=== PATIENT | male | born 1960 | race Caucasian/White ===

== ENCOUNTER 2019-12-12 06:35 | Day surgery (SDC) | payer OTHER ==
[2019-12-10 12:12] VITALS: BMI 27.3
[~2019-12-12 06:35] MED LIST: ALPRAZolam 0.25 MG TAB PO PRN; ALPRAZolam 0.5 MG TAB PO PRN; ASPIRIN 325 MG TAB PO STA; ATORVASTATIN 80 MG TAB PO STA; FAMOTIDINE 20 MG/2 ML VIAL IV PRN; HYDROmorphone 0.5 MG/0.5 ML SYRINGE IVP PRN; LACTATED RINGERS 1,000 ML IV SCH; NITROGLYCERIN SL TABS 0.4 MG TAB SUBLINGUAL PRN; SODIUM CHLORIDE 0.9% 1,000 ML in EMPTY BAG 1 BAG IV ONE
[2019-12-12 07:11] VITALS: TEMP 98.3
[2019-12-12 07:16] LABS: Basophils # (A) 0.1 k/uL (0-0.2); Basophils % (A) 1 %; Eosinophils # (A) 0.7 k/uL (0-0.7); Eosinophils % (A) 6 %; HCT 42.8 % (39.0-53.0); HGB 14.8 gm/dL (13.0-17.5); Lymphocytes # (A) 3.7 k/uL (1.0-4.8); Lymphocytes % (A) 30 %; MCH 30.8 pg (25.0-35.0); MCHC 34.5 g/dL (31.0-37.0); MCV 89.4 fL (80.0-100.0); Mean Platelet Volume 7.9; Monocytes # (A) 0.8 k/uL (0-1.0); Monocytes % (A) 7 %; Neutrophils # (A) 6.5 k/uL (1.3-7.7); Neutrophils % (A) 54 %; Platelet Count 219 k/uL (150-450); RBC 4.79 m/uL (4.30-5.90); WBC 12.1 k/uL (3.8-10.6)
[2019-12-12] MEDS ORDERED: VERAPAMIL 2.5 MG/ML 2 ML AMP ONE (07:16)
[2019-12-12] MEDS ORDERED: LIDOCAINE 1% INJ 10MG/ML (20 ML MDV) ONE (07:16)
[2019-12-12 07:25] LABS: African American GFR (CKD) >90 (>60 ml/min/1.73 sqM); Anion Gap 8 mmol/L; Blood Urea Nitrogen 17 mg/dL (9-20); Calcium 9.3 mg/dL (8.4-10.2); Carbon Dioxide 24 mmol/L (22-30); Chloride 106 mmol/L (98-107); Glucose 96 mg/dL (74-99); Non-African American GFR(CKD) >90 (>60 ml/min/1.73 sqM); Potassium 4.6 mmol/L (3.5-5.1); Sodium 138 mmol/L (137-145)
[2019-12-12] MEDS: MIDAZOLAM 2 MG/2 ML VIAL IVP ONE ×2 (07:35→07:51)
[2019-12-12] MEDS ORDERED: HEPARIN SODIUM 1,000 UN/ML (10ML VL) ONE (07:46)
[2019-12-12] MEDS ORDERED: LIDOCAINE 1% INJ 10MG/ML (20 ML MDV) SQ ONE (07:46)
[2019-12-12] MEDS: VERAPAMIL SYRINGE (5 MG/10 ML) INTRAARTER ONE ×2 (07:49→08:01)
[2019-12-12] MEDS ORDERED: HEPARIN SODIUM 1,000 UN/ML (10ML VL) IV ONE (07:51)
[2019-12-12] MEDS ORDERED: IOPAMIDOL-370 100ML BTL INJ ONE (08:01)
[2019-12-12] MEDS ORDERED: SODIUM CHLORIDE 0.9% 1,000 ML IV SCH (08:30)
[2019-12-12 09:20] VITALS: RESP 16
[2019-12-12 10:12] VITALS: BP 104/68; PULSE 68
--- NOTE | 2019-12-12 12:22 | CC ---
CARDIAC CATHETERIZATION REPORT DATE OF SERVICE: 12/12/2019. PROCEDURE PERFORMED: Left heart catheterization and coronary angiography. PERFORMED BY: Dr. Bárbara Koch. SEDATION: Moderate conscious sedation time was 20 minutes. Patient was administered Versed. Oxygen desaturation and hemodynamics and EKG were monitored closely. CLINICAL INFORMATION: Mr. Jone Garcia is a 59-year-old gentleman with a known history of peripheral arterial disease, smoking, hypertension and hypercholesterolemia. He had a cardiac cath about more than 6 months ago at [facility], was advised aortocoronary bypass surgery, but he refused and he saw Dr. Bran recently and has been having symptoms of angina, but is reluctant to have surgery. He wishes to have a repeat cardiac catheterization prior to any surgical intervention. He has been having symptoms of angina. There was a left main stenosis at that time. PROCEDURE NOTE: Under local anesthesia and strict aseptic precautions, a 6-Venezuelan introducer was placed in the right radial artery. Using 3.5 left and a 4.0 right Jose Eduardo catheters, I performed coronary angiography. The same right catheter was used to check LV pressures. LV gram was not performed. The sheath was taken out and TR band applied as per protocol and patient was sent to the room in stable condition. Saturation the fingers of the right hand was good. CARDIAC CATHETERIZATION FINDINGS: The left ventricular end-diastolic pressure was about 8-10 mmHg without any gradient across aortic valve. CORONARY ANGIOGRAPHY FINDINGS: RIGHT CORONARY ARTERY: Dominant vessel has moderate calcification throughout. The proximal half is heavily calcified, has about a 40% to 45% lesion in the proximal portion. The caliber of the vessel improves and distally gives off a PDA branch and a very tiny PLV branch. Dominant RCA, 45% stenosis in the junction of proximal and middle one third. LEFT MAIN CORONARY: This vessel distally has about 80% stenosis and bifurcates into LAD and circumflex. No ostial stenosis of left main. LEFT ANTERIOR DESCENDING CORONARY: This vessel has 80% ostial lesion, gives off 2 diagonal branches, 1 very proximally and 1 second diagonal branch. The proximal diagonal has mild disease. Second diagonal has significant disease with independent lesion of 80% or so and it is a diffusely diseased vessel. LAD is a fair caliber, runs all the way to the apex, supplies a sizable amount of myocardium. LAD is a graftable vessel. There is moderate calcification in the 1st half of the LAD which has about a 40% narrowing. LEFT POSTERIOR CIRCUMFLEX CORONARY ARTERY: Nondominant vessel, small in caliber and distribution has mild irregularities. No significant disease. Distally the caliber is small and probably will be difficult to graft this vessel. FINAL IMPRESSION: This patient has 80% left main and 80% ostial LAD disease with a 40% mid LAD disease and a 70% diagonal disease. RCA has a 45% stenosis. Circumflex is small and nondominant. Filling pressures are normal. There was no gradient across aortic valve. RECOMMENDATIONS: I am recommending aortocoronary bypass surgery with a FULLER to LAD and possibly additional graft to the diagonal and circumflex if feasible. The RCA is moderate but not significantly diseased. Results were discussed with the patient and and also with Dr. Bran. Patient will follow up with Dr. Bran in one week. MMODL / IJN: [id number] /
--- NOTE | 2019-12-12 15:17 | P.GSCN ---
History of Present Illness Consult date: 12/12/19 Reason for Consult: Symptomatic multivessel coronary artery disease, evaluation for myocardial revascularization surgery. Requesting physician: Brian Bran History of present illness: This is a 59-year-old gentleman who does not follow with the primary care physician on an outpatient basis. He has a past medical history significant for hypertension, dyslipidemia, severe peripheral vascular disease, obesity and chronic ongoing tobacco dependence. Patient has a known history of coronary artery disease and underwent a heart catheterization in February 2019. The heart catheterization was apparently completed at the at [facility] which showed significant coronary artery disease with left main disease and was advised to undergo myocardial revascularization surgery at that time. According to the patient he was reluctant to undergo surgery and refused surgery at that time and wanted to get a second opinion. Recently, he has been having symptoms of chest pain with activity and was associated with some shortness of breath. He denies any complaints of nausea, vomiting, palpitations, near syncope or syncope. The patient has been following with Dr. Bran from [facility] and was requesting to undergo a repeat cardiac catheterization. Subsequently, due to the patient's symptoms of chest pain and history of coronary artery disease a left heart cardiac catheterization and coronary and angiography was completed today by Dr. RAQUEL Koch which demonstrated an 80% stenosis to his distal left main coronary artery, and 80% stenosis to his ostial left anterior descending coronary artery and 80% stenosis to his second diagonal coronary artery, a 40% stenosis to his mid left anterior descending coronary artery and a 45% stenosis to his right coronary artery. Due to the findings on the cardiac catheterization films, the patient's recent symptoms and history of coronary artery disease a consult was placed to Dr. Trenton Miguel from cardiothoracic surgery for further evaluation and treatment recommendations for myocardial revascularization surgery. Review of Systems A 14 point review of systems was completed and was negative except as mentioned in the HPI. Past Medical History Past Medical History: Coronary Artery Disease (CAD), COPD, Hyperlipidemia, Hypertension, Vascular Disorder Additional Past Medical History / Comment(s): hx migrainres, gets SOB, soreness both lower legs History of Any Multi-Drug Resistant Organisms: None Reported Past Surgical History: Heart Catheterization, Orthopedic Surgery Additional Past Surgical History / Comment(s): surgery for fx rt shoulder, heart cath about 9 months ago at [facility] Past Anesthesia/Blood Transfusion Reactions: No Reported Reaction Past Psychological History: No Psychological Hx Reported Smoking Status: Current some day smoker Past Alcohol Use History: Occasional Past Drug Use History: None Reported - Past Family History Mother History Unknown: Yes Additional Family Medical History / Comment(s): mother had blood clot - not sure where Medications and Allergies Home Medications Medication Instructions Recorded Confirmed Type Aspirin [Adult Low Dose Aspirin EC] 81 mg PO DAILY 12/10/19 12/12/19 History Atorvastatin [Lipitor] 40 mg PO DAILY 12/10/19 12/12/19 History Clopidogrel [Plavix] 75 mg PO DAILY 12/10/19 12/12/19 History Lisinopril [Zestril] 2.5 mg PO BID 12/10/19 12/12/19 History Metoprolol Tartrate 25 mg PO BID 12/10/19 12/12/19 History Allergies Allergy/AdvReac Type Severity Reaction Status Date / Time No Known Allergies Allergy Verified 12/10/19 12:01 Surgical - Exam Vital Signs Temp Pulse Resp BP Pulse Ox 98.3 F 55 L 18 133/79 96 12/12/19 06:55 12/12/19 06:55 12/12/19 06:55 12/12/19 06:55 12/12/19 06:55 This is a pleasant 59-year-old gentleman who was seen at his bedside in the extended stay unit. He is awake, alert and oriented 3. He is in no acute apparent distress. Oxygen saturations are 97% on room air. - General well developed, well nourished, no distress, no pain, obese - Eyes PERRL, normal ocular movement - ENT normal pinna, normal nares, normal mucosa, no hearing loss, no congestion - Neck no masses, no bruits, no venous distension - Respiratory Lung sounds are essentially clear throughout, mail order sorter bilateral bases. No wheezes, rhonchi or crackles. Respirations are symmetrical and nonlabored. - Cardiovascular Regular rhythm and rate. S1 and S2 present, negative for S3, gallop or murmur. No edema present. - Abdomen Abdomen is soft, nontender and nondistended. Active bowel sounds present L4 abdominal quadrants. No guarding or rigidity. No organomegaly appreciated. - Genitourinary Deferred - Rectum Deferred - Integumentary no rash, no growths, no abnormal pigmentation - Neurologic Cranial nerves II through XII intact. normal coordination, normal sensation - Musculoskeletal normal gait, normal posture - Psychiatric oriented to time, oriented to person, oriented to place, speech is normal, memory intact Results - Labs 12/12/19 07:00 12/12/19 07:00 Abnormal Lab Results - Last 24 Hours (Table) 12/12/19 Range/Units 07:00 WBC 12.1 H (3.8-10.6) k/uL Diabetes panel 12/12/19 Range/Units 07:00 Sodium 138 (137-145) mmol/L Potassium 4.6 (3.5-5.1) mmol/L Chloride 106 (98-107) mmol/L Carbon Dioxide 24 (22-30) mmol/L BUN 17 (9-20) mg/dL Creatinine 0.83 (0.66-1.25) mg/dL Glucose 96 (74-99) mg/dL Calcium 9.3 (8.4-10.2) mg/dL Calcium panel 12/12/19 Range/Units 07:00 Calcium 9.3 (8.4-10.2) mg/dL Pituitary panel 12/12/19 Range/Units 07:00 Sodium 138 (137-145) mmol/L Potassium 4.6 (3.5-5.1) mmol/L Chloride 106 (98-107) mmol/L Carbon Dioxide 24 (22-30) mmol/L BUN 17 (9-20) mg/dL Creatinine 0.83 (0.66-1.25) mg/dL Glucose 96 (74-99) mg/dL Calcium 9.3 (8.4-10.2) mg/dL Adrenal panel 12/12/19 Range/Units 07:00 Sodium 138 (137-145) mmol/L Potassium 4.6 (3.5-5.1) mmol/L Chloride 106 (98-107) mmol/L Carbon Dioxide 24 (22-30) mmol/L BUN 17 (9-20) mg/dL Creatinine 0.83 (0.66-1.25) mg/dL Glucose 96 (74-99) mg/dL Calcium 9.3 (8.4-10.2) mg/dL - Imaging Additional studies: Heart catheterization films were reviewed by Dr. Trenton Miguel. Assessment and Plan Assessment: 1. Coronary artery disease with left main disease 2. Unstable angina 3. Hypertension 4. Dyslipidemia 5. Peripheral vascular disease 6. Chronic ongoing tobacco dependence Plan: The patient was seen and examined at his bedside in the extended stay unit by Dr. Trenton Migeul. The chart and diagnostics were reviewed. The results of the cardiac catheterization films were reviewed by Dr. Miguel in conjunction with Dr. Bran from [facility]. The findings of the cardiac catheterization films were also discussed with the patient and his family member present at the bedside by Dr. Miguel. Treatment options discussed with the patient including myocardial revascularization surgery including risks and benefits of surgery. The patient is agreeable to undergo myocardial revascularization surgery and would prefer to undergo preoperative testing on an outpatient basis. Once the patient has his preoperative testing completed an STS risk score will be calculated and discussed with the patient and if the patient is agreeable will be scheduled for an elective myocardial revascularization surgery. The patient's Plavix will have to be held for 5-7 days prior to myocardial revascularization surgery. Continue to optimize with medical management, aspirin, statin and beta magen. Medical management per Dr. Bran's rec ommendations. Thank you Dr. Bran for this consult and we will look for to working with you in the care of this patient. Time with Patient: Greater than 30
--- NOTE | 2019-12-12 15:47 | ECHOF ---
Referral Reason:LV function MEASUREMENTS -------- HEIGHT: 175.3 cm WEIGHT: 83.9 kg BP: 120/75 RVIDd: 3.7 cm (< 3.3) IVSd: 1.3 cm (0.6 - 1.1) LVIDd: 4.2 cm (3.9 - 5.3) LVPWd: 1.4 cm (0.6 - 1.1) IVSs: 1.5 cm LVIDs: 2.9 cm LVPWs: 1.7 cm LAESV Index (A-L): 26.97 ml/m Ao Diam: 3.0 cm (2.0 - 3.7) AV Cusp: 1.6 cm (1.5 - 2.6) MV EXCURSION: 15.279 mm (> 18.000) MV EF SLOPE: 76 mm/s (70 - 150) EPSS: 0.9 cm MV E Tyler: 0.63 m/s MV DecT: 277 ms MV A Tyler: 0.79 m/s MV E/A Ratio: 0.79 FINDINGS -------- This was a technically adequate study. The left ventricular size is normal. There is mild concentric left ventricular hypertrophy. Overa ll left ventricular systolic function is normal with, an EF between 55 - 60 %. The diastolic fillin g pattern is normal for the age of the patient 10.. The right ventricle is mildly enlarged. Normal LA size by volume 22+/-6 ml/m2. The right atrial size is normal. Interatrial and interventricular septum intact. There is no evidence of aortic regurgitation. There is no evidence of aortic stenosis. There is trace mitral regurgitation. Trace tricuspid regurgitation present. Unable to estimate RVSP due to inadequate TR jet spectral do ppler profile. There is no pulmonic regurgitation present. The aortic root size is normal. IVC Not well visulized. There is no pericardial effusion. CONCLUSIONS -------- 1. This was a technically adequate study. 2. The left ventricular size is normal. 3. There is mild concentric left ventricular hypertrophy. 4. Overall left ventricular systolic function is normal with, an EF between 55 - 60 %. 5. The diastolic filling pattern is normal for the age of the patient 10.97 6. The right ventricle is mildly enlarged. 7. Normal LA size by volume 22+/-6 ml/m2. 8. The right atrial size is normal. 9. Interatrial and interventricular septum intact. 10. There is no evidence of aortic regurgitation. 11. There is no evidence of aortic stenosis. 12. There is trace mitral regurgitation. 13. Trace tricuspid regurgitation present. 14. Unable to estimate RVSP due to inadequate TR jet spectral doppler profile. 15. There is no pulmonic regurgitation present. 16. The aortic root size is normal. 17. IVC Not well visulized. 18. There is no pericardial effusion. MANAGER [place]: Kathe Berkowitz RDCS
== END 2019-12-12 13:36 | disposition home or self-care (01) ==
LOC: CATHCVL 06:35
PROVIDERS: ATTEND Internal Medicine Interventional Cardiology
DX: I25.110 Atherosclerotic heart disease of native coronary artery with unstable angina pectoris (principal); I10 Essential (primary) hypertension; I73.9 Peripheral vascular disease, unspecified; E66.9 Obesity, unspecified; J44.9 Chronic obstructive pulmonary disease, unspecified; E78.2 Mixed hyperlipidemia; G43.909 Migraine, unspecified, not intractable, without status migrainosus; F17.210 Nicotine dependence, cigarettes, uncomplicated; Z98.890 Other specified postprocedural states; Z82.49 Family history of ischemic heart disease and other diseases of the circulatory system; Z79.02 Long term (current) use of antithrombotics/antiplatelets; Z79.82 Long term (current) use of aspirin; Z79.899 Other long term (current) drug therapy; Z68.27 Body mass index [BMI] 27.0-27.9, adult
CPT/HCPCS: 93306; 93458; 80048; 85025; C1769; C1894; J2250; J2001; J1644; Q9967

== ENCOUNTER 2019-12-24 08:00 | Inpatient (IN) | payer OTHER ==
[2019-12-27] MEDS ORDERED: PROTAMINE SULFATE 250 MG in EMPTY BAG 1 BAG IV ONE (05:00)
[2019-12-27] MEDS ORDERED: ceFAZolin 2,000 MG in SODIUM CHLORIDE 0.9% 30 ML IVPB ONE ×4 (05:00)
[2019-12-27] MEDS ORDERED: NITROGLYCERIN-D5W PMX 25 MG/250 ML BTL IV ONE (05:00)
[2019-12-27] MEDS ORDERED: DEXTROSE 5% IN WATER 1,000 ML with POTASSIUM CHLORIDE 110 MEQ, MAGNESIUM SULFATE 16 MEQ... IV ONE ×5 (05:00)
[2019-12-27] MEDS ORDERED: CHLORHEXIDINE GLUCONATE 15 ML CUP MUCOUS MEM ONE (05:00)
[2019-12-27] MEDS ORDERED: MAGNESIUM SULFATE MG 500 MG/ML IV ONE (05:00)
[2019-12-27] MEDS ORDERED: PAPAVERINE 360 MG in SODIUM CHLORIDE 0.9% 90 ML IV ONE (05:00)
[2019-12-27] MEDS ORDERED: HEPARIN SODIUM 1,000 UN/ML (10ML VL) IV ONE (05:00)
[2019-12-27] MEDS ORDERED: VANCOMYCIN 1,000 MG VIAL MISCELLANE ONE (05:00)
[2019-12-27] MEDS ORDERED: METOPROLOL TARTRATE 12.5 MG TAB PO ONE (05:00)
[2019-12-27] MEDS ORDERED: ATORVASTATIN 10 MG TAB PO ONE (05:00)
[2019-12-27] MEDS ORDERED: CALCIUM CHLORIDE 100 MG/ML 10 ML SYRINGE IV ONE (05:00)
[2019-12-27] MEDS ORDERED: INSULIN REGULAR 100 UNIT in SODIUM CHLORIDE 0.9% 100 ML IV ONE (05:00)
[2019-12-27] MEDS ORDERED: propofoL 1,000 MG/100 ML VIAL IV ONE (05:00)
[2019-12-27] MEDS ORDERED: NOREPINEPHRINE 4 MG in SODIUM CHLORIDE 0.9% 250 ML IV ONE (05:00)
[2019-12-27] MEDS ORDERED: DEXTROSE 5% IN WATER 1,000 ML with POTASSIUM CHLORIDE 25 MEQ, SODIUM CHLORIDE 2.5MEQ/ML... IRRIGATION ONE ×6 (05:00)
[2019-12-27] MEDS ORDERED: PHENYLEPHRINE 10 MG/ML VIAL IV ONE (05:00)
[2019-12-27] MEDS ORDERED: PHENYLEPHRINE 40 MG in SODIUM CHLORIDE 0.9% 250 ML IV ONE (05:00)
[2019-12-27] MEDS ORDERED: SODIUM CHLORIDE 0.9% 1,000 ML IV ONE (05:00)
[2019-12-27] MEDS ORDERED: LACTATED RINGERS 1,000 ML IV ONE ×2 (05:00→07:19)
[2019-12-27] MEDS ORDERED: TRANEXAMIC ACID 2,000 MG in SODIUM CHLORIDE 0.9% 80 ML IV ONE (05:00)
[2019-12-27] MEDS ORDERED: PROTAMINE SULFATE 10 MG/ML 25 ML VIAL IV ONE ×2 (05:00→08:43)
[2019-12-27] MEDS ORDERED: MANNITOL 25% 12.5 GM/50 ML VIAL IV ONE (05:00)
[2019-12-27] MEDS ORDERED: ASPIRIN 325 MG TAB PO ONE (05:00)
[2019-12-27] MEDS ORDERED: SODIUM BICARB 8.4% 50 ML SYR (1 MEQ/ML) IV ONE (05:00)
[2019-12-27] MEDS ORDERED: NITROGLYCERIN-D5W PMX 50 MG in DEXTROSE/WATER 1 250ML.BAG IV ONE (05:00)
[2019-12-27] MEDS ORDERED: ALBUMIN HUMAN 25% 50 ML IV ONE (05:00)
[2019-12-27] MEDS ORDERED: CLEVIDIPINE BUTYRATE 25 MG in EMPTY BAG 1 BAG IV ONE (05:00)
[2019-12-27] MEDS ORDERED: INSULIN REGULAR 100 UNIT/ML VIAL ONE (08:43)
[2019-12-27] MEDS ORDERED: VECURONIUM 10 MG VIAL IV ONE (08:43)
[2019-12-27] MEDS ORDERED: ELECTROLYTE-R (PH 7.4) 1,000 ML IV.SOLN IV ONE (08:43)
[2019-12-27] MEDS ORDERED: PROPOFOL 10 MG/ML 20 ML VIAL IV ONE (08:43)
[2019-12-27] MEDS ORDERED: ALBUMIN HUMAN 5% (25gm) 500 ML VIAL IVPB ONE (08:43)
[2019-12-27] MEDS ORDERED: NITROGLYCERIN-D5W PMX 50 MG/250 ML BOTTLE IV ONE (08:43)
[2019-12-27] MEDS ORDERED: MAGNESIUM SULFATE 4 MEQ/ML 10ML VIAL ONE (08:43)
[2019-12-27] MEDS ORDERED: LIDOCAINE 2% SYG (PF) 100 MG/5 ML ONE (08:43)
[2019-12-27] MEDS ORDERED: SODIUM CHLORIDE 0.9% IRRIG 1,000 ML BTL IRRIGATION ONE (08:43)
[2019-12-27] MEDS ORDERED: HEPARIN SODIUM,PORCINE 10,000 UNIT/ML 1 ML VIAL ONE (08:43)
[2019-12-27] MEDS ORDERED: SODIUM CHLORIDE 0.9% 250 ML BAG ONE (08:43)
[2019-12-27] MEDS ORDERED: TRANEXAMIC ACID 1,000 MG/10 ML VIAL ONE (08:43)
[2019-12-27] MEDS ORDERED: ATROPINE SULFATE 0.1 MG/ML 10ML SYRINGE ONE (08:43)
[2019-12-27] MEDS ORDERED: MIDAZOLAM 2 MG/2 ML VIAL ONE (08:43)
[2019-12-27] MEDS ORDERED: fentaNYL (PF) 50 MCG/ML 50 ML VIAL ONE (08:43)
--- NOTE | 2019-12-27 09:20 | P.ANPRN ---
Procedure Note - Anesthesia - Invasive Line Right Arterial Line Time Out Performed: Yes Date of Procedure: 12/27/19 Time of Procedure: 08:15 Location of Patient: PreOp Preparation: Sterile Prep, Sterile Dressing Arterial Line Location: Radial Ultrasound Used: No Needle Guage: 20 g Narrative: Right radial artery catheter placed by SRNA. Sterile prep and drape. 1% lidocaine 2 ml local. 20 G needle to pulsatile flow. Seldinger technique over wire. Sutured in place. No complications Right Central Line Time Out Performed: Yes Date of Procedure: 12/27/19 Time of Procedure: 08:30 Location of Patient: PreOp Preparation: Sterile Prep, Sterile Dressing Ultrasound Used: Yes Purpose - Visualization and Identification of Vasculature: Yes Needle Guage: 18 G Image Stored and Saved: Yes Narrative: Central line placement per sterile protocol utilized. u/s used to guide needle
[2019-12-27 10:06] LABS: ABG Base Excess 0.3 mmol/L; ABG Glucose Whole Blood 99 mg/dL (75-99); ABG HCO3 27 mmol/L (21-25); ABG Hematocrit 40 % (34.0-46.0); ABG Ionized Calcium 4.8 mg/dL (4.5-5.3); ABG Lactic Acid Whole Blood 1.2 mmol/L (0.5-1.6); ABG Oxygen Saturation 99.9 % (94-97); ABG PCO2 52 mmHg (35-45); ABG PH 7.33 (7.35-7.45); ABG Potassium Whole Blood 4.1 mmol/L (3.4-4.5); ABG Sodium Whole Blood 140 mmol/L (135-146); ABG TCO2 29 mmol/L (19-24)
--- NOTE | 2019-12-27 10:33 | P.ANPRN ---
Procedure Note - Anesthesia - Invasive Line Right Kent Chung Time Out Performed: Yes Date of Procedure: 12/27/19 Time of Procedure: 08:35 Location of Patient: PreOp Preparation: Sterile Prep, Sterile Dressing Ultrasound Used: No Purpose - Visualization and Identification of Vasculature: No Narrative: After testing the balloon and flushing all ports, Kent advanced to 20 cm. Balloon inflated and advanced until RV and then PA waveform seen. Balloon deflated and PA secured at 43 cm.
--- NOTE | 2019-12-27 10:35 | P.ANPRN ---
Procedure Note - Anesthesia - KERI Intraop Pre Bypass KERI Intraop - Anesthesia Indication: CAD, mitral and tricuspid regurgitation Date of Procedure: 12/27/19 Pre-operative Diagnosis: CAD Post-operative Diagnosis: same Surgeon: Trenton Miguel Left Ventricle: EF 50% Ejection Fraction: Normal Regional Wall Motion Abnormalities: None Left Ventricle Hypertrophy: No R. Ventricle Function: Normal Anatomy: Trileaflet Aortic Stenosis: None Aortic Regurgitation: None Other Findings: large, nonmobile calcification on NCC Mitral Stenosis: None Mitral Regurgitation: Trace Tricuspid Stenosis: None Tricuspid Regurgitation: Mild Pulmonic Stenosis: None Pulmonic Regurgitation: None R. Atrial Dilation: No R. Atrial PFO: No L. Atrial Dilation: No Aortic Dissection: No Aortic Calcification: Moderate Plural Effusion: None
[2019-12-27] MEDS: ceFAZolin 1,000 MG in SODIUM CHLORIDE 0.9% IRRIGATIO 1,000 ML IRRIGATION ONE ×2 (11:21→15:07)
[2019-12-27] MEDS: HEPARIN SODIUM,PORCINE 5,000 UNIT in SODIUM CHLORIDE 0.9% 500 ML 500 ML IV ONE ×2 (11:21→11:52)
[2019-12-27 11:23] LABS: ABG Base Excess -1.1 mmol/L; ABG Glucose Whole Blood 135 mg/dL (75-99); ABG HCO3 27 mmol/L (21-25); ABG Hematocrit 37 % (34.0-46.0); ABG Ionized Calcium 4.8 mg/dL (4.5-5.3); ABG Lactic Acid Whole Blood 1.3 mmol/L (0.5-1.6); ABG Oxygen Saturation 96.4 % (94-97); ABG PCO2 63 mmHg (35-45); ABG PH 7.25 (7.35-7.45); ABG PO2 96 mmHg (83-108); ABG Sodium Whole Blood 139 mmol/L (135-146); ABG TCO2 29 mmol/L (19-24)
[2019-12-27 12:04] LABS: ABG Base Excess -2.6 mmol/L; ABG Glucose Whole Blood 133 mg/dL (75-99); ABG HCO3 24 mmol/L (21-25); ABG Hematocrit 31 % (34.0-46.0); ABG Ionized Calcium 4.1 mg/dL (4.5-5.3); ABG Oxygen Saturation 99.9 % (94-97); ABG PCO2 50 mmHg (35-45); ABG PH 7.29 (7.35-7.45); ABG PO2 409 mmHg (83-108); ABG Potassium Whole Blood 4.4 mmol/L (3.4-4.5); ABG Sodium Whole Blood 135 mmol/L (135-146); ABG TCO2 26 mmol/L (19-24)
[2019-12-27 12:42] LABS: ABG Base Excess -1.5 mmol/L; ABG Glucose Whole Blood 212 mg/dL (75-99); ABG HCO3 23 mmol/L (21-25); ABG Hematocrit 28 % (34.0-46.0); ABG Ionized Calcium 4.2 mg/dL (4.5-5.3); ABG PCO2 39 mmHg (35-45); ABG PH 7.38 (7.35-7.45); ABG PO2 333 mmHg (83-108); ABG Potassium Whole Blood 5.6 mmol/L (3.4-4.5); ABG Sodium Whole Blood 133 mmol/L (135-146); ABG TCO2 25 mmol/L (19-24)
[2019-12-27 13:05] LABS: ABG Base Excess -1.6 mmol/L; ABG Glucose Whole Blood 203 mg/dL (75-99); ABG HCO3 23 mmol/L (21-25); ABG Hematocrit 28 % (34.0-46.0); ABG Ionized Calcium 4.3 mg/dL (4.5-5.3); ABG PCO2 40 mmHg (35-45); ABG PH 7.38 (7.35-7.45); ABG PO2 357 mmHg (83-108); ABG Potassium Whole Blood 5.6 mmol/L (3.4-4.5); ABG Sodium Whole Blood 134 mmol/L (135-146); ABG TCO2 25 mmol/L (19-24)
[2019-12-27 13:37] LABS: ABG Base Excess -2.2 mmol/L; ABG Glucose Whole Blood 173 mg/dL (75-99); ABG HCO3 23 mmol/L (21-25); ABG Hematocrit 27 % (34.0-46.0); ABG Ionized Calcium 4.4 mg/dL (4.5-5.3); ABG PCO2 41 mmHg (35-45); ABG PH 7.36 (7.35-7.45); ABG PO2 365 mmHg (83-108); ABG Potassium Whole Blood 4.9 mmol/L (3.4-4.5); ABG Sodium Whole Blood 135 mmol/L (135-146); ABG TCO2 24 mmol/L (19-24)
[2019-12-27 14:27] LABS: ABG PO2 >420 mmHg (83-108)
[2019-12-27 14:28] LABS: ABG Glucose Whole Blood 129 mg/dL (75-99); ABG HCO3 26 mmol/L (21-25); ABG Hematocrit 33 % (34.0-46.0); ABG Ionized Calcium 4.6 mg/dL (4.5-5.3); ABG Lactic Acid Whole Blood 1.8 mmol/L (0.5-1.6); ABG Oxygen Saturation 99.7 % (94-97); ABG PCO2 64 mmHg (35-45); ABG PH 7.21 (7.35-7.45); ABG Potassium Whole Blood 4.3 mmol/L (3.4-4.5); ABG Sodium Whole Blood 138 mmol/L (135-146); ABG TCO2 28 mmol/L (19-24)
[2019-12-27 14:29] LABS: ABG Lactic Acid Whole Blood 2.4 mmol/L (0.5-1.6)
[2019-12-27 14:30] LABS: ABG Lactic Acid Whole Blood 2.7 mmol/L (0.5-1.6)
[2019-12-27 14:33] LABS: ABG PO2 >420 mmHg (83-108)
[2019-12-27 14:50] LABS: ABG Base Excess -2.2 mmol/L; ABG Glucose Whole Blood 105 mg/dL (75-99); ABG HCO3 26 mmol/L (21-25); ABG Hematocrit 34 % (34.0-46.0); ABG Ionized Calcium 4.9 mg/dL (4.5-5.3); ABG Lactic Acid Whole Blood 1.4 mmol/L (0.5-1.6); ABG Oxygen Saturation 99.7 % (94-97); ABG PCO2 59 mmHg (35-45); ABG PH 7.25 (7.35-7.45); ABG Potassium Whole Blood 4.3 mmol/L (3.4-4.5); ABG Sodium Whole Blood 138 mmol/L (135-146); ABG TCO2 28 mmol/L (19-24)
[2019-12-27 14:57] LABS: ABG PO2 >420 mmHg (83-108)
--- NOTE | 2019-12-27 14:57 | P.ANPRN ---
Procedure Note - Anesthesia - KERI Intraop Post Bypass KERI Intraop Post Bypass Procedure Performed: CABG x 3 Left Ventricle: No RWMA. EF 55% Ejection Fraction: Normal Regional Wall Motion Abnormalities: None R. Ventricle Function: Normal Aortic Valve: Unchanged Mitral Valve: Unchanged Tricuspid: Unchanged Pulmonic: Unchanged Aortic Dissection: No
[2019-12-27] MEDS ORDERED: hydrALAZINE HCL 20 MG/ML 1 ML VIAL IVP PRN (15:01)
[2019-12-27] MEDS ORDERED: ONDANSETRON 4 MG/2 ML VIAL IVP PRN (15:01)
[2019-12-27] MEDS ORDERED: METOCLOPRAMIDE 5 MG/ML 2 ML VIAL IVP PRN (15:01)
[2019-12-27] MEDS ORDERED: CALCIUM GLUCONATE 2 GM in SODIUM CHLORIDE 0.9% 100 ML IVPB PRN (15:01)
[2019-12-27] MEDS ORDERED: BENZOCAINE/MENTHOL LOZENG 1 EACH LOZENGE MUCOUS MEM PRN (15:01)
[2019-12-27] MEDS ORDERED: DEXTROSE 5% IN WATER 100 ML with AMIODARONE 150 MG IV PRN (15:01)
[2019-12-27] MEDS ORDERED: AMIODARONE 360 MG in DEXTROSE 5% IN WATER 200 ML IV PRN ×2 (15:01)
[2019-12-27] MEDS ORDERED: ALBUMIN HUMAN 5% 250 ML in EMPTY BAG 1 BAG IVPB PRN (15:01)
[2019-12-27] MEDS ORDERED: Magnesium Replacement Protocol 1 EACH MISC MISCELLANE PRN (15:01)
[2019-12-27] MEDS ORDERED: Potassium Replacement Protocol 1 EACH MISC MISCELLANE PRN (15:01)
[2019-12-27] MEDS ORDERED: AMIODARONE 300 MG in DEXTROSE 5% IN WATER 250 ML IV PRN ×2 (15:01)
[2019-12-27] MEDS ORDERED: Phosphorus Replacement Protoco 1 EACH MISC MISCELLANE PRN (15:01)
[2019-12-27] MEDS ORDERED: CLEVIDIPINE BUTYRATE 25 MG in EMPTY BAG 1 BAG IV SCH (15:01)
[2019-12-27] MEDS: NITROGLYCERIN-D5W PMX 50 MG in DEXTROSE/WATER 1 250ML.BAG IV SCH (15:27)
[2019-12-27] MEDS: LACTATED RINGERS 1,000 ML IV SCH (15:27)
[2019-12-27 15:47] LABS: Glucose,Whole Blood 78 mg/dL (75-99)
[2019-12-27 16:06] LABS: Glucose,Whole Blood 77 mg/dL (75-99)
[2019-12-27 16:09] LABS: Basophils # (A) 0.1 k/uL (0-0.2); Basophils % (A) 0 %; Eosinophils # (A) 0.1 k/uL (0-0.7); Eosinophils % (A) 1 %; HCT 32.4 % (39.0-53.0); Lymphocytes # (A) 1.7 k/uL (1.0-4.8); Lymphocytes % (A) 8 %; MCHC 33.8 g/dL (31.0-37.0); MCV 91.6 fL (80.0-100.0); Mean Platelet Volume 8.6; Monocytes # (A) 1.2 k/uL (0-1.0); Monocytes % (A) 6 %; Neutrophils # (A) 17.9 k/uL (1.3-7.7); Neutrophils % (A) 85 %; Platelet Count 119 k/uL (150-450); RBC 3.54 m/uL (4.30-5.90); RDW 13.1 % (11.5-15.5); WBC 21.1 k/uL (3.8-10.6)
--- NOTE | 2019-12-27 16:09 | XR ---
EXAMINATION TYPE: XR chest 1V portable DATE OF EXAM: 12/27/2019 COMPARISON: Prior chest x-ray 12/24/2019 HISTORY: Postop cardiac surgery TECHNIQUE: Single frontal view of the chest is obtained. FINDINGS: Endotracheal tube and NG tube are in place, side-port of the NG tube is likely proximal to the gastroesophageal junction. Median sternal drains are present. There is right check her centimete rs catheter, distal tip in the right pulmonary artery. Left chest tube is in place. No sizable pneumo thorax. Atrial appendage clipping is present. Patient is post median sternotomy. Bandlike area of inc reased attenuation the left midlung is noted. Heart size within normal limits. IMPRESSION: Satisfactory postoperative chest x-ray. NG tube is described. There is likely atelectasi s left midlung.
[2019-12-27 16:14] LABS: INR 1.1 (<1.2); Ionized Calcium 5.1 mg/dL (4.5-5.3); Partial Thromboplastin Time 24.6 sec (22.0-30.0); Prothrombin Time 11.4 sec (9.0-12.0)
[2019-12-27 16:16] LABS: ABG Base Excess 0.1 mmol/L; ABG HCO3 28 mmol/L (21-25); ABG Oxygen Saturation 99.6 % (94-97); ABG PCO2 65 mmHg (35-45); ABG PH 7.24 (7.35-7.45); ABG PO2 >400 mmHg (83-108); ABG TCO2 30 mmol/L (19-24)
[2019-12-27 16:19] LABS: Allen Test Performed? no
[2019-12-27 16:25] LABS: ALT 14 U/L (4-49); AST 35 U/L (17-59); African American GFR (CKD) >90 (>60 ml/min/1.73 sqM); Albumin 2.9 g/dL (3.5-5.0); Alkaline Phosphatase 27 U/L (38-126); Anion Gap 3 mmol/L; Blood Urea Nitrogen 14 mg/dL (9-20); Calcium 8.1 mg/dL (8.4-10.2); Carbon Dioxide 28 mmol/L (22-30); Chloride 108 mmol/L (98-107); Glucose 69 mg/dL (74-99); Magnesium 2.6 mg/dL (1.6-2.3); Non-African American GFR(CKD) >90 (>60 ml/min/1.73 sqM); Potassium 4.4 mmol/L (3.5-5.1); Sodium 139 mmol/L (137-145); Total Bilirubin 0.4 mg/dL (0.2-1.3); Total Protein 4.6 g/dL (6.3-8.2)
[2019-12-27] MEDS ORDERED: INSULIN REGULAR 100 UNIT in SODIUM CHLORIDE 0.9% 100 ML IV SCH (16:30)
[2019-12-27 16:35] LABS: Glucose,Whole Blood 70 mg/dL (75-99)
[2019-12-27] MEDS: IPRATROPIUM-ALBUTEROL 3 ML NEB INHALATION SCH ×3 (16:53→19:12)
[2019-12-27 16:56] LABS: Glucose,Whole Blood 71 mg/dL (75-99)
[2019-12-27 17:18] LABS: Glucose,Whole Blood 80 mg/dL (75-99)
[2019-12-27] MEDS: ACETAMINOPHEN IV (For NPO) 1,000 MG in EMPTY BAG 1 BAG IVPB SCH (17:20)
--- NOTE | 2019-12-27 17:20 | P.CNPUL ---
History of Present Illness Consult date: 12/27/19 Chief complaint: Multivessel coronary artery disease, post thoracotomy and bypass surgery History of present illness: 59-year-old male patient, a chronic smoker and marijuana user, we'll also has history of hypertension, hyperlipidemia, peripheral vascular disease and coronary artery disease. The patient had significant disease involving left main and he was advised to undergo myocardial vascular rosacea surgery back in 2019. The patient was reluctant to undergo surgery. Ultimately the patient was seen by [facility]. A repeat cardiac catheterization was done. The patient was found to have 80% stenosis in the distal left main artery, 80% stenosis of the ostial left anterior descending artery and 80% stenosis in the second diagonal artery and 40% stenosis in the mid LAD and 45% stenosis in the RCA. The patient underwent coronary artery bypass surgery and the patient underwent three-vessel bypass and I'm seeing the patient. In the intensive care unit The patient arrived to the ICU on a mechanical ventilator. The patient was initially on a tidal volume of 500 with a rate of 12 and FiO2 of 100% with a PEEP of 5. Blood gases showed a component of respiratory acidosis with a pH of 7.2 and a pCO2 of 64. PO2 was above 400. The necessity ventilator changes were done and the rate was increased up to 24. He is slightly bronchospastic and wheezy and this was expected as the patient has COPD. His peak airway pressure is 33. The static pressures 23. No significant orotracheal secretions. No pressors at this point in time. Cardiac index was 2.5. He is producing adequate amount of urine output. He has 2 mediastinal chest tubes and 1 left pleural chest tube. Cardiac rhythm is sinus and he has a backup pacemaker at the rate of 50. No other significant events postop. Review of Systems ROS unobtainable: due to endotracheal tube Past Medical History Past Medical History: Coronary Artery Disease (CAD), COPD, Hyperlipidemia, Hypertension, Myocardial Infarction ([place]), Vascular Disorder Additional Past Medical History / Comment(s): hx migraines, gets SOB, "mild heart attack",soreness both lower legs Last Myocardial Infarction Date:: December 2018 History of Any Multi-Drug Resistant Organisms: None Reported Past Surgical History: Heart Catheterization, Orthopedic Surgery Additional Past Surgical History / Comment(s): surgery for fx rt shoulder, heart cath about 9 months ago at [facility] Past Anesthesia/Blood Transfusion Reactions: No Reported Reaction Additional Past Anesthesia/Blood Transfusion Reaction / Comment(s): no hx blood transfusion Smoking Status: Current every day smoker - Past Family History Mother History Unknown: Yes Additional Family Medical History / Comment(s): mother had blood clot - not sure where Medications and Allergies Home Medications Medication Instructions Recorded Confirmed Type Aspirin [Adult Low Dose Aspirin EC] 81 mg PO DAILY 12/10/19 12/25/19 History Atorvastatin [Lipitor] 40 mg PO DAILY 12/10/19 12/25/19 History Clopidogrel [Plavix] 75 mg PO DAILY 12/10/19 12/25/19 History Lisinopril [Zestril] 2.5 mg PO BID 12/10/19 12/25/19 History Metoprolol Tartrate 25 mg PO BID 12/10/19 12/25/19 History Mupirocin [Mupirocin 2%] 1 applic NASAL BID #1 tube 12/24/19 12/25/19 Rx Naproxen Sodium [Aleve] 220 mg PO BID PRN 12/25/19 12/25/19 History Allergies Allergy/AdvReac Type Severity Reaction Status Date / Time No Known Allergies Allergy Verified 12/25/19 13:49 Physical Exam Vitals: Vital Signs Temp Pulse Pulse Resp BP BP Pulse Ox 12/27/19 17:06 80 12/27/19 16:56 80 12/27/19 07:15 97.0 F L 65 18 142/92 165/104 98 Intake and Output 12/27/19 12/27/19 12/27/19 06:59 14:59 22:59 Intake Total 102 Output Total 1200 Balance -1098 Intake: IV 102 Output: Urine 300 Estimated Blood Loss 900 Other: Weight 89.5 kg Gen. appearance, comfortable lying acute distress still sedated on that effective anesthetics. He is currently off propofol. Head exam was generally normal. There was no scleral icterus or corneal arcus. Mucous membranes were moist. Orotracheal and orogastric tube are both in place. Neck was supple and without jugular venous distension, thyromegaly, or carotid bruits. Carotids were easily palpable bilaterally. There was no adenopathy. The patient has a right IJ Raleigh-Chung catheter which is in place. Lungs sounds are equal and symmetrical there is scattered expiratory wheezes throughout the lung his bilaterally. Scattered rhonchi can be also appreciated. Cardiac exam revealed the PMI to be normally situated and sized. The rhythm was regular and no extrasystoles were noted during several minutes of auscultation. The first and second heart sounds were normal and physiologic splitting of the second heart sound was noted. There were no murmurs, rubs, clicks, or gallops. The patient has 2 mediastinal chest tubes and 1 left pleural chest tube. All of the chest tubes are in place and there is no evidence of any air leak. Output has been noted. Abdominal exam revealed normal bowel sounds. The abdomen was soft, non-tender, and without masses, organomegaly, or appreciable enlargement of the abdominal aorta. Examination of the extremities revealed easily palpable radial, femoral and pedal pulses. There was no cyanosis, clubbing or edema. Examination of the skin revealed no evidence of significant rashes, suspicious appearing nevi or other concerning lesions. Neurologic the patient is sedated Results - Laboratory Findings CBC and BMP: 12/27/19 15:40 12/27/19 15:40 ABG ABG pH 7.24 (7.35-7.45) L 12/27/19 16:14 ABG pCO2 65 mmHg (35-45) H 12/27/19 16:14 ABG pO2 >400 mmHg (83-108) H 12/27/19 16:14 ABG O2 Saturation 99.6 % (94-97) H 12/27/19 16:14 PT/INR, D-dimer PT 11.4 sec (9.0-12.0) 12/27/19 15:40 INR 1.1 (<1.2) 12/27/19 15:40 Abnormal lab findings: Abnormal Labs 12/24/19 12/27/19 12/27/19 08:50 10:09 11:26 WBC RBC Hgb Hct Plt Count Neutrophils # Monocytes # ABG pH 7.33 L 7.25 L ABG pCO2 52 H 63 H ABG pO2 >420 H ABG HCO3 27 H 27 H ABG Total CO2 29 H 29 H ABG O2 Saturation 99.9 H ABG Hematocrit ABG Sodium ABG Potassium ABG Ionized Calcium ABG Glucose 135 H ABG Lactic Acid Hemoglobin 12.9 L 12.1 L Chloride Glucose POC Glucose (mg/dL) Calcium Magnesium Alkaline Phosphatase Total Protein Albumin Arterial Blood Potassium Arterial Blood Glucose 135 H Crossmatch See Detail 12/27/19 12/27/19 12/27/19 12:07 12:46 13:09 WBC RBC Hgb Hct Plt Count Neutrophils # Monocytes # ABG pH 7.29 L ABG pCO2 50 H ABG pO2 409 H 333 H 357 H ABG HCO3 ABG Total CO2 26 H 25 H 25 H ABG O2 Saturation 99.9 H 100.0 H 100.0 H ABG Hematocrit 31 L 28 L 28 L ABG Sodium 133 L 134 L ABG Potassium 5.6 H 5.6 H ABG Ionized Calcium 4.1 L 4.2 L 4.3 L ABG Glucose 133 H 212 H 203 H ABG Lactic Acid 2.0 H 2.4 H* Hemoglobin 10.1 L 9.0 L 9.1 L Chloride Glucose POC Glucose (mg/dL) Calcium Magnesium Alkaline Phosphatase Total Protein Albumin Arterial Blood Potassium 5.6 H 5.6 H Arterial Blood Glucose 133 H 212 H 203 H Crossmatch 12/27/19 12/27/19 12/27/19 13:40 14:29 14:53 WBC RBC Hgb Hct Plt Count Neutrophils # Monocytes # ABG pH 7.21 L 7.25 L ABG pCO2 64 H 59 H ABG pO2 365 H >420 H >420 H ABG HCO3 26 H 26 H ABG Total CO2 28 H 28 H ABG O2 Saturation 100.0 H 99.7 H 99.7 H ABG Hematocrit 27 L 33 L ABG Sodium ABG Potassium 4.9 H ABG Ionized Calcium 4.4 L ABG Glucose 173 H 129 H 105 H ABG Lactic Acid 2.7 H* 1.8 H Hemoglobin 8.9 L 10.7 L 11.1 L Chloride Glucose POC Glucose (mg/dL) Calcium Magnesium Alkaline Phosphatase Total Protein Albumin Arterial Blood Potassium 4.9 H Arterial Blood Glucose 173 H 129 H 105 H Crossmatch 12/27/19 12/27/19 12/27/19 15:40 15:40 16:14 WBC 21.1 H RBC 3.54 L Hgb 11.0 L Hct 32.4 L Plt Count 119 L Neutrophils # 17.9 H Monocytes # 1.2 H ABG pH 7.24 L ABG pCO2 65 H ABG pO2 >400 H ABG HCO3 28 H ABG Total CO2 30 H ABG O2 Saturation 99.6 H ABG Hematocrit ABG Sodium ABG Potassium ABG Ionized Calcium ABG Glucose ABG Lactic Acid Hemoglobin Chloride 108 H Glucose 69 L POC Glucose (mg/dL) Calcium 8.1 L Magnesium 2.6 H Alkaline Phosphatase 27 L Total Protein 4.6 L Albumin 2.9 L Arterial Blood Potassium Arterial Blood Glucose Crossmatch 12/27/19 12/27/19 16:33 16:54 WBC RBC Hgb Hct Plt Count Neutrophils # Monocytes # ABG pH ABG pCO2 ABG pO2 ABG HCO3 ABG Total CO2 ABG O2 Saturation ABG Hematocrit ABG Sodium ABG Potassium ABG Ionized Calcium ABG Glucose ABG Lactic Acid Hemoglobin Chloride Glucose POC Glucose (mg/dL) 70 L 71 L Calcium Magnesium Alkaline Phosphatase Total Protein Albumin Arterial Blood Potassium Arterial Blood Glucose Crossmatch - Diagnostic Findings Chest x-ray: image reviewed Assessment and Plan Plan: 1 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 The patient underwent three-vessel bypass surgery. The patient is postop day #0. Currently in the intensive care unit intubated on a mechanical ventilator. Hemodynamically parameters were noted and they are adequate and the patient is on no pressors at this point in time. 2 post thoracotomy, currently intubated on a mechanical ventilator. Chest x-ray and blood gases were noted. The patient has 2 mediastinal down 1 left pleural chest tube in place. 3 COPD with a component of COPD exacerbation. The patient is showing some increased wheezing and bronchospasm with a peak airway pressure of 33 on the mechanical ventilator. 4 hypertension 5 hyperlipidemia 6 peripheral vascular disease 7 tobacco marijuana smoking Plan Continue vent support and increased respiratory rate of 24 Chest x-ray was noted Monitor the output from the chest tubes Patient on albuterol nebulized treatments 4 times a day [id number] We'll discuss with cardiothoracic surgery the possibility of adding some systemic steroids and the patient is found to be quite bronchospastic and wheezy. Monitored hemodynamics parameters Keep the patient The patient of sedation Check weaning parameters and will proceed with a spontaneous breathing trial with the patient is more awake Anticipate extubation within next few hours. We'll continue to follow.
[2019-12-27 17:35] LABS: Glucose,Whole Blood 85 mg/dL (75-99)
[2019-12-27] MEDS: KETOROLAC 30 MG/ML 1 ML VIAL IVP SCH ×2 (17:41→23:36)
[2019-12-27] MEDS ORDERED: methylPREDNISolone SOD SUCCI 125 MG/2 ML VIAL IV STA (17:44)
[2019-12-27 18:08] LABS: Glucose,Whole Blood 121 mg/dL (75-99)
[2019-12-27] MEDS ORDERED: DEXMEDETOMIDINE/0.9% NACL(PMX) 400 MCG in EMPTY BAG 1 BAG IV SCH (18:15)
--- NOTE | 2019-12-27 18:18 | P.CONS ---
History of Present Illness - Reason for Consult Consult date: 12/27/19 tobacco abuse Requesting physician: Trenton Miguel - Chief Complaint coronary artery disease - History of Present Illness Patient is a 59-year-old male with a history of hypertension, dyslipidemia, severe peripheral arterial disease, obesity, and chronic ongoing tobacco abuse who came in for coronary artery bypass surgery. On 12/26 he underwent triple-vessel coronary artery bypass grafting. He is seen in the ICU, he remains intubated. He is currently not responsive, propofol has been turned off. He has had some acidosis with pH of 7.4 with hypercapnia as well as relative hypoglycemia postoperatively. He had a brief episode of bradycardia with hypotension and pacemaker wires were enabled. Patient seen and examined at bedside. He remains sedated despite having propofol turned off he is currently on spontneous on the vent. Nursing at bedside and updated on patient current plan of care. Review of Systems Unable to obtain review of systems as patient remains sedated and is currently intubated. Past Medical History Past Medical History: Coronary Artery Disease (CAD), COPD, Hyperlipidemia, Hypertension, Myocardial Infarction ([place]), Vascular Disorder Additional Past Medical History / Comment(s): hx migraines, gets SOB, "mild heart attack",soreness both lower legs Last Myocardial Infarction Date:: December 2018 History of Any Multi-Drug Resistant Organisms: None Reported Past Surgical History: Heart Catheterization, Orthopedic Surgery Additional Past Surgical History / Comment(s): surgery for fx rt shoulder, heart cath about 9 months ago at [facility] Past Anesthesia/Blood Transfusion Reactions: No Reported Reaction Additional Past Anesthesia/Blood Transfusion Reaction / Comm: no hx blood transfusion Smoking Status: Current every day smoker - Past Family History Mother History Unknown: Yes Additional Family Medical History / Comment(s): mother had blood clot - not sure where Medications and Allergies Home Medications Medication Instructions Recorded Confirmed Type Aspirin [Adult Low Dose Aspirin EC] 81 mg PO DAILY 12/10/19 12/25/19 History Atorvastatin [Lipitor] 40 mg PO DAILY 12/10/19 12/25/19 History Clopidogrel [Plavix] 75 mg PO DAILY 12/10/19 12/25/19 History Lisinopril [Zestril] 2.5 mg PO BID 12/10/19 12/25/19 History Metoprolol Tartrate 25 mg PO BID 12/10/19 12/25/19 History Mupirocin [Mupirocin 2%] 1 applic NASAL BID #1 tube 12/24/19 12/25/19 Rx Naproxen Sodium [Aleve] 220 mg PO BID PRN 12/25/19 12/25/19 History Allergies Allergy/AdvReac Type Severity Reaction Status Date / Time No Known Allergies Allergy Verified 12/25/19 13:49 Physical Exam Osteopathic Statement: *. No significant issues noted on an osteopathic structural exam other than those noted in the History and Physical/Consult. Vitals: Vital Signs Temp Pulse Pulse Resp BP BP Pulse Ox 12/27/19 17:06 80 12/27/19 16:56 80 12/27/19 07:15 97.0 F L 65 18 142/92 165/104 98 Intake and Output 12/27/19 12/27/19 12/27/19 06:59 14:59 22:59 Intake Total 102 17.453 Output Total 1200 Balance -1098 17.453 Intake: IV 102 Intake, IV Titration 17.453 Amount Propofol 1,000 mg In 17.453 Empty Bag 1 bag @ Titrate IV .Q0M [facility] Rx#: [id number] Output: Urine 300 Estimated Blood Loss 900 Other: Weight 89.5 kg General: ill appearing, mild distress, appears at stated age, Obese Derm: no unusual rashes/lesions no unusual ecchymoses, warm, dry Head: atraumatic, normocephalic, symmetric Eyes: PERRL, no lid lesion, anicteric sclera ENT: Nose and ears atraumatic Neck: No thyromegaly, no cervical lymphadenopathy, trachea midline, supple Mouth: no lip lesion, mucus membranes dry Cardiovascular: S1S2 reg, no murmur, legs warapped, no edema, capillary refill less than 2 seconds, Chest tube and mediastinal tubes in place. Lungs: wheeze bilateral, no accessory muscle use Abdominal: soft, nontender to palpation, no guarding, no appreciable organomega ly, normal bowel sounds Ext: no gross muscle atrophy, no contractures, Neuro: sedated on vent, breathing over, per nursing squeezed hands bilateral Psych: sedated on vent Results CBC & Chem 7: 12/27/19 15:40 12/27/19 15:40 Labs: Abnormal Lab Results - Last 24 Hours (Table) 12/24/19 12/27/1912/26/20 Range/Units 08:50 10:09 11:26 WBC (3.8-10.6) k/uL RBC (4.30-5.90) m/uL Hgb (13.0-17.5) gm/dL Hct (39.0-53.0) % Plt Count (150-450) k/uL Neutrophils # (1.3-7.7) k/uL Monocytes # (0-1.0) k/uL ABG pH 7.33 L 7.25 L (7.35-7.45) ABG pCO2 52 H 63 H (35-45) mmHg ABG pO2 >420 H (83-108) mmHg ABG HCO3 27 H 27 H (21-25) mmol/L ABG Total CO2 29 H 29 H (19-24) mmol/L ABG O2 Saturation 99.9 H (94-97) % ABG Hematocrit (34.0-46.0) % ABG Sodium (135-146) mmol/L ABG Potassium (3.4-4.5) mmol/L ABG Ionized Calcium (4.5-5.3) mg/dL ABG Glucose 135 H (75-99) mg/dL ABG Lactic Acid (0.5-1.6) mmol/L Hemoglobin 12.9 L 12.1 L (13.0-17.5) gm/dL Chloride (98-107) mmol/L Glucose (74-99) mg/dL POC Glucose (mg/dL) (75-99) mg/dL Calcium (8.4-10.2) mg/dL Magnesium (1.6-2.3) mg/dL Alkaline Phosphatase (38-126) U/L Total Protein (6.3-8.2) g/dL Albumin (3.5-5.0) g/dL Arterial Blood Potassium (3.4-4.5) mmol/L Arterial Blood Glucose 135 H (75-99) mg/dL Crossmatch See Detail 12/27/19 12/27/19 12/27/19 Range/Units 12:07 12:46 13:09 WBC (3.8-10.6) k/uL RBC (4.30-5.90) m/uL Hgb (13.0-17.5) gm/dL Hct (39.0-53.0) % Plt Count (150-450) k/uL Neutrophils # (1.3-7.7) k/uL Monocytes # (0-1.0) k/uL ABG pH 7.29 L (7.35-7.45) ABG pCO2 50 H (35-45) mmHg ABG pO2 409 H 333 H 357 H (83-108) mmHg ABG HCO3 (21-25) mmol/L ABG Total CO2 26 H 25 H 25 H (19-24) mmol/L ABG O2 Saturation 99.9 H 100.0 H 100.0 H (94-97) % ABG Hematocrit 31 L 28 L 28 L (34.0-46.0) % ABG Sodium 133 L 134 L (135-146) mmol/L ABG Potassium 5.6 H 5.6 H (3.4-4.5) mmol/L ABG Ionized Calcium 4.1 L 4.2 L 4.3 L (4.5-5.3) mg/dL ABG Glucose 133 H 212 H 203 H (75-99) mg/dL ABG Lactic Acid 2.0 H 2.4 H* (0.5-1.6) mmol/L Hemoglobin 10.1 L 9.0 L 9.1 L (13.0-17.5) gm/dL Chloride (98-107) mmol/L Glucose (74-99) mg/dL POC Glucose (mg/dL) (75-99) mg/dL Calcium (8.4-10.2) mg/dL Magnesium (1.6-2.3) mg/dL Alkaline Phosphatase (38-126) U/L Total Protein (6.3-8.2) g/dL Albumin (3.5-5.0) g/dL Arterial Blood Potassium 5.6 H 5.6 H (3.4-4.5) mmol/L Arterial Blood Glucose 133 H 212 H 203 H (75-99) mg/dL Crossmatch 12/27/19 12/27/19 12/27/19 Range/Units 13:40 14:29 14:53 WBC (3.8-10.6) k/uL RBC (4.30-5.90) m/uL Hgb (13.0-17.5) gm/dL Hct (39.0-53.0) % Plt Count (150-450) k/uL Neutrophils # (1.3-7.7) k/uL Monocytes # (0-1.0) k/uL ABG pH 7.21 L 7.25 L (7.35-7.45) ABG pCO2 64 H 59 H (35-45) mmHg ABG pO2 365 H >420 H >420 H (83-108) mmHg ABG HCO3 26 H 26 H (21-25) mmol/L ABG Total CO2 28 H 28 H (19-24) mmol/L ABG O2 Saturation 100.0 H 99.7 H 99.7 H (94-97) % ABG Hematocrit 27 L 33 L (34.0-46.0) % ABG Sodium (135-146) mmol/L ABG Potassium 4.9 H (3.4-4.5) mmol/L ABG Ionized Calcium 4.4 L (4.5-5.3) mg/dL ABG Glucose 173 H 129 H 105 H (75-99) mg/dL ABG Lactic Acid 2.7 H* 1.8 H (0.5-1.6) mmol/L Hemoglobin 8.9 L 10.7 L 11.1 L (13.0-17.5) gm/dL Chloride (98-107) mmol/L Glucose (74-99) mg/dL POC Glucose (mg/dL) (75-99) mg/dL Calcium (8.4-10.2) mg/dL Magnesium (1.6-2.3) mg/dL Alkaline Phosphatase (38-126) U/L Total Protein (6.3-8.2) g/dL Albumin (3.5-5.0) g/dL Arterial Blood Potassium 4.9 H (3.4-4.5) mmol/L Arterial Blood Glucose 173 H 129 H 105 H (75-99) mg/dL Crossmatch 12/27/19 12/27/19 12/27/19 Range/Units 15:40 15:40 16:14 WBC 21.1 H (3.8-10.6) k/uL RBC 3.54 L (4.30-5.90) m/uL Hgb 11.0 L (13.0-17.5) gm/dL Hct 32.4 L (39.0-53.0) % Plt Count 119 L (150-450) k/uL Neutrophils # 17.9 H (1.3-7.7) k/uL Monocytes # 1.2 H (0-1.0) k/uL ABG pH 7.24 L (7.35-7.45) ABG pCO2 65 H (35-45) mmHg ABG pO2 >400 H (83-108) mmHg ABG HCO3 28 H (21-25) mmol/L ABG Total CO2 30 H (19-24) mmol/L ABG O2 Saturation 99.6 H (94-97) % ABG Hematocrit (34.0-46.0) % ABG Sodium (135-146) mmol/L ABG Potassium (3.4-4.5) mmol/L ABG Ionized Calcium (4.5-5.3) mg/dL ABG Glucose (75-99) mg/dL ABG Lactic Acid (0.5-1.6) mmol/L Hemoglobin (13.0-17.5) gm/dL Chloride 108 H (98-107) mmol/L Glucose 69 L (74-99) mg/dL POC Glucose (mg/dL) (75-99) mg/dL Calcium 8.1 L (8.4-10.2) mg/dL Magnesium 2.6 H (1.6-2.3) mg/dL Alkaline Phosphatase 27 L (38-126) U/L Total Protein 4.6 L (6.3-8.2) g/dL Albumin 2.9 L (3.5-5.0) g/dL Arterial Blood Potassium (3.4-4.5) mmol/L Arterial Blood Glucose (75-99) mg/dL Crossmatch 12/27/19 12/27/19 Range/Units 16:33 16:54 WBC (3.8-10.6) k/uL RBC (4.30-5.90) m/uL Hgb (13.0-17.5) gm/dL Hct (39.0-53.0) % Plt Count (150-450) k/uL Neutrophils # (1.3-7.7) k/uL Monocytes # (0-1.0) k/uL ABG pH (7.35-7.45) ABG pCO2 (35-45) mmHg ABG pO2 (83-108) mmHg ABG HCO3 (21-25) mmol/L ABG Total CO2 (19-24) mmol/L ABG O2 Saturation (94-97) % ABG Hematocrit (34.0-46.0) % ABG Sodium (135-146) mmol/L ABG Potassium (3.4-4.5) mmol/L ABG Ionized Calcium (4.5-5.3) mg/dL ABG Glucose (75-99) mg/dL ABG Lactic Acid (0.5-1.6) mmol/L Hemoglobin (13.0-17.5) gm/dL Chloride (98-107) mmol/L Glucose (74-99) mg/dL POC Glucose (mg/dL) 70 L 71 L (75-99) mg/dL Calcium (8.4-10.2) mg/dL Magnesium (1.6-2.3) mg/dL Alkaline Phosphatase (38-126) U/L Total Protein (6.3-8.2) g/dL Albumin (3.5-5.0) g/dL Arterial Blood Potassium (3.4-4.5) mmol/L Arterial Blood Glucose (75-99) mg/dL Crossmatch Assessment and Plan Assessment: Tripple vessel coronary disease - s/p CABG - management per cardiothorasic surgery Acute blood loss anemia and thrombocytopenia - anticipated acute blood loss anemia - follow CBC HTN - controlled - follow BP - resume medications per CV surgery HLD - statin given today - resume when okay per CV surgery Marginal blood sugars - q1 hour - D 50 if needed COPD with a component of exacerbation - pulm recs - solumedrol - bronchodilators Peripheral vascular disease Tobacco abuse - cesation Thank you for allowing us to participate in the care of this pleasant patient. Do not hesitate to contact us with questions. Someone can be reached from the [facility] [place] [facility] hospitalist group all hours of the day at [phone] or via perfect serve.
[2019-12-27 18:49] LABS: Basophils # (A) 0.1 k/uL (0-0.2); Basophils % (A) 0 %; Eosinophils # (A) 0.1 k/uL (0-0.7); Eosinophils % (A) 0 %; HCT 36.5 % (39.0-53.0); HGB 11.9 gm/dL (13.0-17.5); Lymphocytes # (A) 1.5 k/uL (1.0-4.8); Lymphocytes % (A) 7 %; MCH 29.7 pg (25.0-35.0); MCHC 32.6 g/dL (31.0-37.0); MCV 91.1 fL (80.0-100.0); Mean Platelet Volume 8.6; Monocytes # (A) 1.3 k/uL (0-1.0); Monocytes % (A) 6 %; Neutrophils % (A) 85 %; Platelet Count 153 k/uL (150-450); RDW 13.3 % (11.5-15.5); WBC 21.2 k/uL (3.8-10.6)
[2019-12-27 19:33] LABS: ABG Base Excess -1.7 mmol/L; ABG HCO3 24 mmol/L (21-25); ABG Oxygen Saturation 98.9 % (94-97); ABG PCO2 47 mmHg (35-45); ABG PH 7.33 (7.35-7.45); ABG PO2 161 mmHg (83-108); ABG TCO2 26 mmol/L (19-24)
[2019-12-27 19:49] LABS: Allen Test Performed? no
[2019-12-27 20:05] LABS: Glucose,Whole Blood 131 mg/dL (75-99)
[2019-12-27] MEDS: IPRATROPIUM-ALBUTEROL 3 ML NEB INHALATION PRN (20:59)
[2019-12-27 21:17] LABS: Glucose,Whole Blood 137 mg/dL (75-99)
[2019-12-27 21:33] LABS: Basophils % (A) 0 %; Eosinophils % (A) 0 %; HCT 35.7 % (39.0-53.0); HGB 11.7 gm/dL (13.0-17.5); Lymphocytes # (A) 0.7 k/uL (1.0-4.8); Lymphocytes % (A) 4 %; MCH 30.3 pg (25.0-35.0); MCHC 32.8 g/dL (31.0-37.0); MCV 92.4 fL (80.0-100.0); Mean Platelet Volume 8.9; Monocytes # (A) 0.6 k/uL (0-1.0); Monocytes % (A) 4 %; Neutrophils # (A) 15.3 k/uL (1.3-7.7); Neutrophils % (A) 91 %; Platelet Count 125 k/uL (150-450); RBC 3.87 m/uL (4.30-5.90); RDW 13.3 % (11.5-15.5); WBC 16.8 k/uL (3.8-10.6)
[2019-12-27 22:22] LABS: Glucose,Whole Blood 127 mg/dL (75-99)
[2019-12-27 23:14] LABS: Glucose,Whole Blood 157 mg/dL (75-99)
[2019-12-27] MEDS: HEPARIN SODIUM,PORCINE 5,000 UNIT/ML 1 ML VIAL SQ SCH (23:37)
[2019-12-28] MEDS: ACETAMINOPHEN IV (For NPO) 1,000 MG in EMPTY BAG 1 BAG IVPB SCH (00:25)
[2019-12-28 00:33] LABS: Glucose,Whole Blood 111 mg/dL (75-99)
[2019-12-28 01:40] LABS: Glucose,Whole Blood 137 mg/dL (75-99)
--- NOTE | 2019-12-28 02:04 | OP ---
OPERATIVE REPORT DATE OF SURGERY: 12/27/2019. PREOPERATIVE DIAGNOSIS: Coronary artery disease. POSTOPERATIVE DIAGNOSIS: Coronary artery disease. PROCEDURE: 1. Coronary artery bypass grafting x3 vessels (left internal mammary artery to left anterior descending artery, saphenous vein graft to diagonal artery, saphenous vein graft to obtuse marginal artery). 2. Endoscopic harvest left greater saphenous vein. 3. Epiaortic ultrasound. 4. Ligation of left atrial appendage using 40 mm Atriclip. 5. Transesophageal echocardiogram. SURGEON: Trenton Miguel MD. ASSISTANTS: 1. OLEG Monzon. 2. Chele Silva NP. ANESTHESIA: General. SPECIMEN: None. COMPLICATION: None. INDICATION: The patient is a 59-year-old male with a past medical history significant for hypertension, dyslipidemia, severe peripheral vascular disease, obesity, and tobacco use who initially underwent a cardiac catheterization back in February of 2019. At that time, he was noted to have significant coronary disease and was advised to undergo myocardial revascularization, however, he refused. Since that time, he has been having worsening chest pain along with shortness of breath. A repeat cardiac catheterization was performed and again shows multivessel coronary artery disease including left main disease. Again, a coronary artery bypass is recommended. The risks, benefits, and alternatives to this procedure were discussed with the patient and his . All their questions were answered. The patient did agree this time and consent was obtained. FINDINGS: The left internal mammary artery was a good conduit with brisk flow. The saphenous vein was a good conduit. The LAD measured 1.5 mm. The obtuse marginal artery measured 1.0 mm. The diagonal artery contained diffuse calcific disease, but measured 1.3 mm. PROCEDURE IN DETAIL: The patient was taken the operating room and placed supine on the operating table. After the induction of general anesthesia, he was prepped and draped in the usual sterile fashion. Preoperative transesophageal cardiogram confirmed a normal ejection fraction with trace to mild mitral regurgitation. A median sternotomy was performed. At this point, the patient did become bradycardic and eventually asystolic requiring one dose of atropine and epinephrine. He had immediate return of heart rate and blood pressure. KERI was again carefully inspected and the patient had good left ventricular function with no wall abnormalities. Again, he had trace to mild mitral regurgitation. The left internal mammary artery was then harvested in the standard fashion taking care to clip all branches. Intravenous heparin was administered. The vessel was transected distally revealing brisk flow. Simultaneously greater saphenous vein was harvested from the left lower extremity using endoscopic technique. All branches were tied. The vein was adequate in size, though it did contain multiple branches and was smaller than anticipated. Unfortunately, the radial arteries could not be used for conduit as both upper extremities were dependent. A pericardial cradle was created. The ascending aorta was palpated. There was calcific plaque noted at the takeoff of the innominate artery as well as the aortic arch, but none noted in the ascending aorta. Epiaortic ultrasound was then performed on the ascending aorta. Again, some calcific disease was noted in the aortic arch, but the ascending aorta appeared to be free of atheromatous disease as well as calcific disease. An arterial cannula was placed in a soft spot free of disease. A venous cannula was placed through the right atrial appendage and directed into the IVC. Both antegrade and retrograde catheters were placed as well. The patient was then placed on cardiopulmonary bypass with good decompression of the heart. The aortic cross- clamp was applied. Cold blood potassium cardioplegia was delivered in both antegrade and retrograde fashion to achieve arrest of the heart. Of note, cardioplegia was delivered every 15 to 20 minutes while the patient remainder under crossclamp. The left atrial appendage was identified. A 40 mm Atriclip was placed across its base to ensure ligation. Next, I inspected the lateral wall. The obtuse marginal artery was identified. It was dissected free and traced back proximally. It was small in diameter but I felt it was amenable for bypass. A small arteriotomy was created. This vessel accepted a 1 mm probe. Using saphenous vein in a reverse fashion, an end-to-side anastomosis was created. This was performed a running 7-0 Prolene suture. The graft was hemostatic and had good flow. Next, the anterior wall was identified. The diagonal artery was dissected free. It contained multiple areas of diffuse calcium. A soft spot amenable for bypass was noted distally. A small arteriotomy was created. This vessel accepted a 1 mm probe. Using saphenous vein in a reverse fashion, an end-to-side anastomosis was created. This was performed using running 7-0 Prolene suture. The graft was hemostatic and had great flow. Finally the left anterior descending artery was identified. It was dissected free in its mid portion. A small arteriotomy was created. This vessel accepted a 1.5 mm probe. Using the left internal mammary artery, an end-to-side anastomosis was created. This was performed using a running 8-0 Prolene suture. The graft was hemostatic. The mammary pedicle was then tacked down to the anterior surface of the heart. Attention was then turned to the proximal anastomoses. These were both performed in end-to-side fashion using running 6-0 Prolene sutures. One liter of warm blood was delivered in retrograde fashion. Both and lidocaine and magnesium were administered as well. The aortic cross-clamp was removed. Both vein grafts were de-aired in the standard fashion. Distal anastomoses were inspected and appeared to be hemostatic. Temporary atrial and ventricular pacing wires were placed and brought through the skin. The patient was then weaned off cardiopulmonary bypass. He without difficulty or the addition of any pressor support. Follow-up transesophageal echocardiogram confirmed good left ventricular ejection fraction and no change in the trace to mild mitral regurgitation. Protamine was administered. There were no adverse reactions. The remaining cannulas were then removed. The mediastinum was copiously irrigated with warm saline solution. Again, all surgical sites were inspected and appeared to be hemostatic. Soft tissues were reapproximated over the ascending aorta as well as over the the apex of the heart. Straight [place] chest tubes were placed in both the left pleural space and the mediastinum. These were all secured to the skin using sutures. The sternum was then reapproximated using the [place] cable system. The cables were placed in a [id number] fashion. At the completion of the closure, the sternum was well aligned. The wound was then closed in layers. Sterile dressing was applied. The patient appeared to tolerate the procedure well. There were no immediate complications. He did not receive any intraoperative blood products. He returned to the ICU in critical but stable condition. MMODL / IJN: [id number] / [email or web address]
[2019-12-28] MEDS ORDERED: HYDROcodone/APAP 5-325MG 1 EACH TAB PO PRN (02:21)
[2019-12-28 04:32] LABS: Glucose,Whole Blood 150 mg/dL (75-99)
[2019-12-28 04:55] LABS: Basophils % (A) 0 %; Eosinophils % (A) 0 %; HCT 34.3 % (39.0-53.0); HGB 11.5 gm/dL (13.0-17.5); Lymphocytes # (A) 0.8 k/uL (1.0-4.8); Lymphocytes % (A) 4 %; MCH 30.6 pg (25.0-35.0); MCHC 33.6 g/dL (31.0-37.0); Mean Platelet Volume 9.9; Monocytes # (A) 0.9 k/uL (0-1.0); Monocytes % (A) 5 %; Neutrophils # (A) 16.7 k/uL (1.3-7.7); Neutrophils % (A) 90 %; Platelet Count 118 k/uL (150-450); RBC 3.77 m/uL (4.30-5.90); RDW 13.3 % (11.5-15.5); WBC 18.5 k/uL (3.8-10.6)
[2019-12-28 04:57] LABS: Ionized Calcium 4.8 mg/dL (4.5-5.3)
[2019-12-28 05:14] LABS: ALT 18 U/L (4-49); AST 67 U/L (17-59); African American GFR (CKD) >90 (>60 ml/min/1.73 sqM); Albumin 3.5 g/dL (3.5-5.0); Alkaline Phosphatase 39 U/L (38-126); Anion Gap 6 mmol/L; Blood Urea Nitrogen 16 mg/dL (9-20); Calcium 8.5 mg/dL (8.4-10.2); Carbon Dioxide 25 mmol/L (22-30); Chloride 104 mmol/L (98-107); Glucose 151 mg/dL (74-99); Magnesium 2.1 mg/dL (1.6-2.3); Non-African American GFR(CKD) >90 (>60 ml/min/1.73 sqM); Potassium 4.2 mmol/L (3.5-5.1); Sodium 135 mmol/L (137-145); Total Bilirubin 0.5 mg/dL (0.2-1.3); Total Protein 5.4 g/dL (6.3-8.2)
[2019-12-28] MEDS: KETOROLAC 30 MG/ML 1 ML VIAL IVP SCH ×4 (06:58→23:45)
[2019-12-28 07:03] LABS: Glucose,Whole Blood 173 mg/dL (75-99)
--- NOTE | 2019-12-28 07:41 | CONS ---
CONSULTATION This is a 59-year-old gentleman with a history of peripheral artery disease and CAD. He was advised aortocoronary bypass surgery sometime in the fall but chose not to have it and we had a repeat cardiac cath performed by right radial approach. Study revealed that he had a significant left main as well as LAD disease. Yesterday, he underwent aortocoronary bypass surgery with a FULLER to LAD, separate vein graft to the diagonal and obtuse marginal branch of circumflex. RCA was dominant, had no more than 40% to 45% lesion, calcified. He has been extubated. Surgery has gone well. He is looking comfortable, hemodynamically stable, not on any pressors. He is resting comfortably. PAST MEDICAL HISTORY: 1. CAD. 2. Peripheral arterial disease. 3. History of smoking and COPD. MEDICATIONS: Medications at home include aspirin 81 mg daily, Plavix 75 mg daily, atorvastatin 40 mg daily, metoprolol tartrate 25 mg b.i.d., Zestril 2.5 mg daily. ALLERGIES: None. REVIEW OF SYSTEMS: Unremarkable other than above-mentioned facts. PHYSICAL EXAMINATION: On examination, blood pressure is 120/80, pulse rate is about 84 per minute, regular. HEENT: Unremarkable. Fundus was not examined. Heart exam reveals S1, S2 heard normally. No significant murmurs. Lungs reveal diminished air entry. Abdomen is soft. Rest of physical exam is unchanged. IMPRESSION: 1. Left main and two-vessel disease, status post aortocoronary bypass surgery yesterday. 2. Peripheral arterial disease. 3. History of smoking and chronic obstructive pulmonary disease. RECOMMENDATIONS: Agree with the currently outlined management. We will add Lipitor 40 mg daily to his regimen. Continue all his medications and pursue with incentive spirometry and pulmonary toilet. The patient is recovering nicely. MMODL / IJN: [id number] /
[2019-12-28 07:58] LABS: Glucose,Whole Blood 148 mg/dL (75-99)
--- NOTE | 2019-12-28 08:01 | XR ---
EXAMINATION TYPE: XR chest 1V portable DATE OF EXAM: 12/28/2019 COMPARISON: 12/27/2019 INDICATION: Post cardiac surgery TECHNIQUE: Single frontal view of the chest is obtained. FINDINGS: The heart size is normal. The pulmonary vasculature is normal. Scattered increased lung markings are at the left perihilar region. This is slightly improved over th e interval. Left chest tube is present. No pneumothorax is evident. [place] catheter is present with the tip di stal right pulmonary artery. Correlate with waveforms. Endotracheal tube and nasogastric tube is been removed. IMPRESSION: 1. Improving atelectatic type change within the left midlung. No pneumothorax is evident. 2. [place] catheter remains present with the tip distal right pulmonary artery. Correlate with the waveforms.
[2019-12-28] MEDS ORDERED: ATORVASTATIN 40 MG TAB PO SCH (09:00)
[2019-12-28] MEDS ORDERED: bisacodyL 10 MG SUPP RECTAL PRN (09:00)
[2019-12-28] MEDS ORDERED: MAGNESIUM HYDROXIDE 2,400 MG/10 ML CUP PO PRN (09:00)
[2019-12-28] MEDS ORDERED: PANTOPRAZOLE 40 MG/10 ML VIAL IVP SCH (09:00)
[2019-12-28] MEDS ORDERED: METOPROLOL TARTRATE 12.5 MG TAB PO SCH (09:00)
[2019-12-28] MEDS ORDERED: CLOPIDOGREL 75 MG TAB PO SCH (09:00)
[2019-12-28] MEDS: HEPARIN SODIUM,PORCINE 5,000 UNIT/ML 1 ML VIAL SQ SCH ×3 (09:04→23:45)
[2019-12-28] MEDS: THIAMINE 100 MG TAB PO SCH (09:04)
[2019-12-28] MEDS: ASPIRIN 325 MG TAB PO SCH (09:04)
[2019-12-28] MEDS: FOLIC ACID 1 MG TAB PO SCH (09:04)
[2019-12-28] MEDS: IPRATROPIUM-ALBUTEROL 3 ML NEB INHALATION SCH ×4 (09:42→21:06)
[2019-12-28] MEDS ORDERED: METOPROLOL TARTRATE 12.5 MG TAB PO STA (09:51)
--- NOTE | 2019-12-28 09:53 | P.PN ---
Subjective Progress Note Date: 12/28/19 Principal diagnosis: Coronary artery disease with left main disease. Past medical history significant for hypertension, dyslipidemia, severe peripheral vascular disease, obesity, COPD with a preoperative FEV1 46% of predicted value, daily marijuana use and chronic ongoing tobacco dependence. POD #1 coronary artery bypass grafting 3 vessels with placement of the left internal mammary artery to left anterior descending coronary artery, a reverse greater saphenous vein graft to the diagonal coronary artery, a reverse greater saphenous vein graft to the obtuse marginal coronary artery. Endoscopic harvesting of the left greater saphenous vein. Epi-aortic ultrasound. Ligation of the left atrial appendage using a 40 mm Atriclip. Intraoperative transesophageal echocardiogram. Postoperative acute blood loss anemia, an expected outcome given cardiopulmonary bypass and hemodilution. The patient is sitting up to the bedside chair in the intensive care unit. He is in no acute distress and is currently on no inotropic or pressor support. Currently denies any complaints of shortness of breath although his reporting some surgical type pain to his chest tube insertion sites. [place] catheter remains in place with current cardiac output 7.8 and cardiac index 3.8, CVP 6 mmHg. He was successfully extubated last evening at 8:55 PM and oxygen saturations are currently 93% on room air and he is achieving 1000 mL on his incentive spirometry with encouragement. Mediastinal and left pleural chest tubes remain in place to low continuous wall suction -20 cm H2O. No air leak is present. Mediastinal chest tubes drained 350 mL output of thin serosanguineous drainage in the last 8 hours and 550 mL since surgery. Left pleural chest tube drained 25 mL of thin serosanguineous drainage in the last 8 hours and 55 mL output since surgery. Atrial and ventricular epicardial pacemaker wires remain in place and connected to back up to bedside pacemaker generator with a VVI 50. Objective - Vital Signs Vital signs: Vital Signs Temp 98.2 F 12/28/19 08:00 Pulse 98 12/28/19 08:00 Resp 12 12/28/19 08:00 BP 91/65 12/28/19 07:00 Pulse Ox 91 L 12/28/19 08:00 Intake & Output 12/27/19 12/28/19 12/28/19 18:59 06:59 18:59 Intake Total 219.199 4327.645 103.825 Output Total 1429 1173 450 Balance -1009.547 -167.355 -346.175 Weight 89.5 kg 100.2 kg Intake: IV 202 600 100 Lactated Ringers 1,000 ml 100 600 100 @ 50 mls/hr IV .Q20H FERNIE Rx#:[id number] Intake, IV Titration 217.453 405.645 3.825 Amount ACETAMINOPHEN IV (For NPO 100 100 ) 1,000 mg In Empty Bag 1 bag @ 400 mls/hr IVPB Q6HR FERNIE Rx#:[id number] Albumin Human 5% 250 ml 250 In Empty Bag 1 bag @ 250 mls/hr IVPB Q1HR PRN Rx#: [id number] Insulin Regular 100 unit 5.645 3.825 In Sodium Chloride 0.9% 100 ml @ Per Protocol IV .Q0M FERNIE Rx#:[id number] Propofol 1,000 mg In 17.453 Empty Bag 1 bag @ Titrate IV .Q0M FERNIE Rx#: [id number] ceFAZolin 2 gm In Sodium 100 50 Chloride 0.9% 50 ml @ 100 mls/hr IVPB Q8H FERNIE Rx#: [id number] Output: Chest Tube Drainage 160 506 275 Chest Tube Left Mid- 0 30 125 Clavicular Chest Chest Tube Mediastinal 160 476 150 Urine 369 667 175 Estimated Blood Loss 900 ABP, PAP, CO, CI - Last Documented Arterial Blood Pressure 142/57 Pulmonary Artery Pressure 17/8 Cardiac Output 7.8 Cardiac Index 3.8 - Constitutional General appearance: Present: cooperative, no acute distress, obese - EENT Eyes: Present: PERRLA, poor dentition, normal appearance. Absent: scleral icterus ENT: Present: hearing grossly normal. Absent: thrush - Neck Details: Neck is supple, no JVD, no lymphadenopathy. - Respiratory Details: Lung sounds essentially clear throughout, few scattered expiratory wheezes to his bilateral bases. Respirations are symmetrical and nonlabored. Oxygen saturation is 93% on room air. Achieving 1000 mL on his incentive spirometry at encouragement. Mediastinal and left pleural chest tubes remain in place to low continuous wall suction -20 cm H2O. No air leak is present. Mediastinal chest tubes drained 350 mL output of thin serosanguineous drainage in the last 8 hours and 550 mL since surgery. Left pleural chest tube drained 25 mL of thin serosanguineous drainage in the last 8 hours and 55 mL output since surgery. - Cardiovascular Details: Rate and rhythm and rate. S1 and S2 present, negative for S3, gallop or murmur. Sternum is stable. Atrial and ventricular epicardial pacemaker wires remain in place and connected to back up to bedside pacemaker generator with a VVI 50. Heart hugger is in place and he is demonstrating appropriate use. Knee-high MICKY hose and sequential compression devices in place to his bilateral lower extremities. No edema present. - Gastrointestinal Gastrointestinal Comment(s): Abdomen is soft, nontender and nondistended. Active bowel sounds present in all 4 abdominal quadrants. No guarding or rigidity. No organomegaly appreciated. Tolerating oral intake. - Genitourinary Genitourinary Comment(s): Hawthorne catheter for accurate I&O. Draining clear daniel urine. 440 mL output in the last 8 hours. - Integumentary Integumentary Comment(s): Skin is warm and dry. No clubbing or cyanosis is present. No rash or abnormal pigmentation is present. Midline sternal incision is clean, dry and approximated. No drainage or redness is present. Left lower extremity EVH site is clean, dry and approximated. No drainage or redness is present. - Neurologic Neurologic: Present: CNII-XII intact - Musculoskeletal Musculoskeletal: Present: gait normal, generalized weakness, strength equal bilaterally - Psychiatric Psychiatric: Present: A&O x's 3, appropriate affect, intact judgment & insight - Allied health notes Allied health notes reviewed: nursing - Labs CBC & Chem 7: 12/28/19 04:45 12/28/19 04:45 Labs: Abnormal Lab Results - Last 24 Hours (Table) 12/24/19 12/27/19 12/27/19 Range/Units 08:50 10:09 11:26 WBC (3.8-10.6) k/uL RBC (4.30-5.90) m/uL Hgb (13.0-17.5) gm/dL Hct (39.0-53.0) % Plt Count (150-450) k/uL Neutrophils # (1.3-7.7) k/uL Lymphocytes # (1.0-4.8) k/uL Monocytes # (0-1.0) k/uL ABG pH 7.33 L 7.25 L (7.35-7.45) ABG pCO2 52 H 63 H (35-45) mmHg ABG pO2 >420 H (83-108) mmHg ABG HCO3 27 H 27 H (21-25) mmol/L ABG Total CO2 29 H 29 H (19-24) mmol/L ABG O2 Saturation 99.9 H (94-97) % ABG Hematocrit (34.0-46.0) % ABG Sodium (135-146) mmol/L ABG Potassium (3.4-4.5) mmol/L ABG Ionized Calcium (4.5-5.3) mg/dL ABG Glucose 135 H (75-99) mg/dL ABG Lactic Acid (0.5-1.6) mmol/L Hemoglobin 12.9 L 12.1 L (13.0-17.5) gm/dL Sodium (137-145) mmol/L Chloride (98-107) mmol/L Glucose (74-99) mg/dL POC Glucose (mg/dL) (75-99) mg/dL Calcium (8.4-10.2) mg/dL Magnesium (1.6-2.3) mg/dL AST (17-59) U/L Alkaline Phosphatase (38-126) U/L Total Protein (6.3-8.2) g/dL Albumin (3.5-5.0) g/dL Arterial Blood Potassium (3.4-4.5) mmol/L Arterial Blood Glucose 135 H (75-99) mg/dL Crossmatch See Detail 12/27/19 12/27/19 12/27/19 Range/Units 12:07 12:46 13:09 WBC (3.8-10.6) k/uL RBC (4.30-5.90) m/uL Hgb (13.0-17.5) gm/dL Hct (39.0-53.0) % Plt Count (150-450) k/uL Neutrophils # (1.3-7.7) k/uL Lymphocytes # (1.0-4.8) k/uL Monocytes # (0-1.0) k/uL ABG pH 7.29 L (7.35-7.45) ABG pCO2 50 H (35-45) mmHg ABG pO2 409 H 333 H 357 H (83-108) mmHg ABG HCO3 (21-25) mmol/L ABG Total CO2 26 H 25 H 25 H (19-24) mmol/L ABG O2 Saturation 99.9 H 100.0 H 100.0 H (94-97) % ABG Hematocrit 31 L 28 L 28 L (34.0-46.0) % ABG Sodium 133 L 134 L (135-146) mmol/L ABG Potassium 5.6 H 5.6 H (3.4-4.5) mmol/L ABG Ionized Calcium 4.1 L 4.2 L 4.3 L (4.5-5.3) mg/dL ABG Glucose 133 H 212 H 203 H (75-99) mg/dL ABG Lactic Acid 2.0 H 2.4 H* (0.5-1.6) mmol/L Hemoglobin 10.1 L 9.0 L 9.1 L (13.0-17.5) gm/dL Sodium (137-145) mmol/L Chloride (98-107) mmol/L Glucose (74-99) mg/dL POC Glucose (mg/dL) (75-99) mg/dL Calcium (8.4-10.2) mg/dL Magnesium (1.6-2.3) mg/dL AST (17-59) U/L Alkaline Phosphatase (38-126) U/L Total Protein (6.3-8.2) g/dL Albumin (3.5-5.0) g/dL Arterial Blood Potassium 5.6 H 5.6 H (3.4-4.5) mmol/L Arterial Blood Glucose 133 H 212 H 203 H (75-99) mg/dL Crossmatch 12/27/19 12/27/19 12/27/19 Range/Units 13:40 14:29 14:53 WBC (3.8-10.6) k/uL RBC (4.30-5.90) m/uL Hgb (13.0-17.5) gm/dL Hct (39.0-53.0) % Plt Count (150-450) k/uL Neutrophils # (1.3-7.7) k/uL Lymphocytes # (1.0-4.8) k/uL Monocytes # (0-1.0) k/uL ABG pH 7.21 L 7.25 L (7.35-7.45) ABG pCO2 64 H 59 H (35-45) mmHg ABG pO2 365 H >420 H >420 H (83-108) mmHg ABG HCO3 26 H 26 H (21-25) mmol/L ABG Total CO2 28 H 28 H (19-24) mmol/L ABG O2 Saturation 100.0 H 99.7 H 99.7 H (94-97) % ABG Hematocrit 27 L 33 L (34.0-46.0) % ABG Sodium (135-146) mmol/L ABG Potassium 4.9 H (3.4-4.5) mmol/L ABG Ionized Calcium 4.4 L (4.5-5.3) mg/dL ABG Glucose 173 H 129 H 105 H (75-99) mg/dL ABG Lactic Acid 2.7 H* 1.8 H (0.5-1.6) mmol/L Hemoglobin 8.9 L 10.7 L 11.1 L (13.0-17.5) gm/dL Sodium (137-145) mmol/L Chloride (98-107) mmol/L Glucose (74-99) mg/dL POC Glucose (mg/dL) (75-99) mg/dL Calcium (8.4-10.2) mg/dL Magnesium (1.6-2.3) mg/dL AST (17-59) U/L Alkaline Phosphatase (38-126) U/L Total Protein (6.3-8.2) g/dL Albumin (3.5-5.0) g/dL Arterial Blood Potassium 4.9 H (3.4-4.5) mmol/L Arterial Blood Glucose 173 H 129 H 105 H (75-99) mg/dL Crossmatch 12/27/19 12/27/19 12/27/19 Range/Units 15:40 15:40 16:14 WBC 21.1 H (3.8-10.6) k/uL RBC 3.54 L (4.30-5.90) m/uL Hgb 11.0 L (13.0-17.5) gm/dL Hct 32.4 L (39.0-53.0) % Plt Count 119 L (150-450) k/uL Neutrophils # 17.9 H (1.3-7.7) k/uL Lymphocytes # (1.0-4.8) k/uL Monocytes # 1.2 H (0-1.0) k/uL ABG pH 7.24 L (7.35-7.45) ABG pCO2 65 H (35-45) mmHg ABG pO2 >400 H (83-108) mmHg ABG HCO3 28 H (21-25) mmol/L ABG Total CO2 30 H (19-24) mmol/L ABG O2 Saturation 99.6 H (94-97) % ABG Hematocrit (34.0-46.0) % ABG Sodium (135-146) mmol/L ABG Potassium (3.4-4.5) mmol/L ABG Ionized Calcium (4.5-5.3) mg/dL ABG Glucose (75-99) mg/dL ABG Lactic Acid (0.5-1.6) mmol/L Hemoglobin (13.0-17.5) gm/dL Sodium (137-145) mmol/L Chloride 108 H (98-107) mmol/L Glucose 69 L (74-99) mg/dL POC Glucose (mg/dL) (75-99) mg/dL Calcium 8.1 L (8.4-10.2) mg/dL Magnesium 2.6 H (1.6-2.3) mg/dL AST (17-59) U/L Alkaline Phosphatase 27 L (38-126) U/L Total Protein 4.6 L (6.3-8.2) g/dL Albumin 2.9 L (3.5-5.0) g/dL Arterial Blood Potassium (3.4-4.5) mmol/L Arterial Blood Glucose (75-99) mg/dL Crossmatch 12/27/19 12/27/19 12/27/19 Range/Units 16:33 16:54 17:45 WBC 21.2 H (3.8-10.6) k/uL RBC 4.00 L (4.30-5.90) m/uL Hgb 11.9 L (13.0-17.5) gm/dL Hct 36.5 L (39.0-53.0) % Plt Count (150-450) k/uL Neutrophils # 18.0 H (1.3-7.7) k/uL Lymphocytes # (1.0-4.8) k/uL Monocytes # 1.3 H (0-1.0) k/uL ABG pH (7.35-7.45) ABG pCO2 (35-45) mmHg ABG pO2 (83-108) mmHg ABG HCO3 (21-25) mmol/L ABG Total CO2 (19-24) mmol/L ABG O2 Saturation (94-97) % ABG Hematocrit (34.0-46.0) % ABG Sodium (135-146) mmol/L ABG Potassium (3.4-4.5) mmol/L ABG Ionized Calcium (4.5-5.3) mg/dL ABG Glucose (75-99) mg/dL ABG Lactic Acid (0.5-1.6) mmol/L Hemoglobin (13.0-17.5) gm/dL Sodium (137-145) mmol/L Chloride (98-107) mmol/L Glucose (74-99) mg/dL POC Glucose (mg/dL) 70 L 71 L (75-99) mg/dL Calcium (8.4-10.2) mg/dL Magnesium (1.6-2.3) mg/dL AST (17-59) U/L Alkaline Phosphatase (38-126) U/L Total Protein (6.3-8.2) g/dL Albumin (3.5-5.0) g/dL Arterial Blood Potassium (3.4-4.5) mmol/L Arterial Blood Glucose (75-99) mg/dL Crossmatch 12/27/19 12/27/19 12/27/19 Range/Units 18:04 19:29 20:03 WBC (3.8-10.6) k/uL RBC (4.30-5.90) m/uL Hgb (13.0-17.5) gm/dL Hct (39.0-53.0) % Plt Count (150-450) k/uL Neutrophils # (1.3-7.7) k/uL Lymphocytes # (1.0-4.8) k/uL Monocytes # (0-1.0) k/uL ABG pH 7.33 L (7.35-7.45) ABG pCO2 47 H (35-45) mmHg ABG pO2 161 H (83-108) mmHg ABG HCO3 (21-25) mmol/L ABG Total CO2 26 H (19-24) mmol/L ABG O2 Saturation 98.9 H (94-97) % ABG Hematocrit (34.0-46.0) % ABG Sodium (135-146) mmol/L ABG Potassium (3.4-4.5) mmol/L ABG Ionized Calcium (4.5-5.3) mg/dL ABG Glucose (75-99) mg/dL ABG Lactic Acid (0.5-1.6) mmol/L Hemoglobin (13.0-17.5) gm/dL Sodium (137-145) mmol/L Chloride (98-107) mmol/L Glucose (74-99) mg/dL POC Glucose (mg/dL) 121 H 131 H (75-99) mg/dL Calcium (8.4-10.2) mg/dL Magnesium (1.6-2.3) mg/dL AST (17-59) U/L Alkaline Phosphatase (38-126) U/L Total Protein (6.3-8.2) g/dL Albumin (3.5-5.0) g/dL Arterial Blood Potassium (3.4-4.5) mmol/L Arterial Blood Glucose (75-99) mg/dL Crossmatch 12/27/19 12/27/19 12/27/19 Range/Units 21:00 21:15 22:20 WBC 16.8 H (3.8-10.6) k/uL RBC 3.87 L (4.30-5.90) m/uL Hgb 11.7 L (13.0-17.5) gm/dL Hct 35.7 L (39.0-53.0) % Plt Count 125 L (150-450) k/uL Neutrophils # 15.3 H (1.3-7.7) k/uL Lymphocytes # 0.7 L (1.0-4.8) k/uL Monocytes # (0-1.0) k/uL ABG pH (7.35-7.45) ABG pCO2 (35-45) mmHg ABG pO2 (83-108) mmHg ABG HCO3 (21-25) mmol/L ABG Total CO2 (19-24) mmol/L ABG O2 Saturation (94-97) % ABG Hematocrit (34.0-46.0) % ABG Sodium (135-146) mmol/L ABG Potassium (3.4-4.5) mmol/L ABG Ionized Calcium (4.5-5.3) mg/dL ABG Glucose (75-99) mg/dL ABG Lactic Acid (0.5-1.6) mmol/L Hemoglobin (13.0-17.5) gm/dL Sodium (137-145) mmol/L Chloride (98-107) mmol/L Glucose (74-99) mg/dL POC Glucose (mg/dL) 137 H 127 H (75-99) mg/dL Calcium (8.4-10.2) mg/dL Magnesium (1.6-2.3) mg/dL AST (17-59) U/L Alkaline Phosphatase (38-126) U/L Total Protein (6.3-8.2) g/dL Albumin (3.5-5.0) g/dL Arterial Blood Potassium (3.4-4.5) mmol/L Arterial Blood Glucose (75-99) mg/dL Crossmatch 12/27/19 12/28/19 12/28/19 Range/Units 23:12 00:31 01:39 WBC (3.8-10.6) k/uL RBC (4.30-5.90) m/uL Hgb (13.0-17.5) gm/dL Hct (39.0-53.0) % Plt Count (150-450) k/uL Neutrophils # (1.3-7.7) k/uL Lymphocytes # (1.0-4.8) k/uL Monocytes # (0-1.0) k/uL ABG pH (7.35-7.45) ABG pCO2 (35-45) mmHg ABG pO2 (83-108) mmHg ABG HCO3 (21-25) mmol/L ABG Total CO2 (19-24) mmol/L ABG O2 Saturation (94-97) % ABG Hematocrit (34.0-46.0) % ABG Sodium (135-146) mmol/L ABG Potassium (3.4-4.5) mmol/L ABG Ionized Calcium (4.5-5.3) mg/dL ABG Glucose (75-99) mg/dL ABG Lactic Acid (0.5-1.6) mmol/L Hemoglobin (13.0-17.5) gm/dL Sodium (137-145) mmol/L Chloride (98-107) mmol/L Glucose (74-99) mg/dL POC Glucose (mg/dL) 157 H 111 H 137 H (75-99) mg/dL Calcium (8.4-10.2) mg/dL Magnesium (1.6-2.3) mg/dL AST (17-59) U/L Alkaline Phosphatase (38-126) U/L Total Protein (6.3-8.2) g/dL Albumin (3.5-5.0) g/dL Arterial Blood Potassium (3.4-4.5) mmol/L Arterial Blood Glucose (75-99) mg/dL Crossmatch 12/28/19 12/28/19 12/28/19 Range/Units 04:30 04:45 04:45 WBC 18.5 H (3.8-10.6) k/uL RBC 3.77 L (4.30-5.90) m/uL Hgb 11.5 L (13.0-17.5) gm/dL Hct 34.3 L (39.0-53.0) % Plt Count 118 L (150-450) k/uL Neutrophils # 16.7 H (1.3-7.7) k/uL Lymphocytes # 0.8 L (1.0-4.8) k/uL Monocytes # (0-1.0) k/uL ABG pH (7.35-7.45) ABG pCO2 (35-45) mmHg ABG pO2 (83-108) mmHg ABG HCO3 (21-25) mmol/L ABG Total CO2 (19-24) mmol/L ABG O2 Saturation (94-97) % ABG Hematocrit (34.0-46.0) % ABG Sodium (135-146) mmol/L ABG Potassium (3.4-4.5) mmol/L ABG Ionized Calcium (4.5-5.3) mg/dL ABG Glucose (75-99) mg/dL ABG Lactic Acid (0.5-1.6) mmol/L Hemoglobin (13.0-17.5) gm/dL Sodium 135 L (137-145) mmol/L Chloride (98-107) mmol/L Glucose 151 H (74-99) mg/dL POC Glucose (mg/dL) 150 H (75-99) mg/dL Calcium (8.4-10.2) mg/dL Magnesium (1.6-2.3) mg/dL AST 67 H (17-59) U/L Alkaline Phosphatase (38-126) U/L Total Protein 5.4 L (6.3-8.2) g/dL Albumin (3.5-5.0) g/dL Arterial Blood Potassium (3.4-4.5) mmol/L Arterial Blood Glucose (75-99) mg/dL Crossmatch 12/28/19 12/28/19 Range/Units 07:02 07:56 WBC (3.8-10.6) k/uL RBC (4.30-5.90) m/uL Hgb (13.0-17.5) gm/dL Hct (39.0-53.0) % Plt Count (150-450) k/uL Neutrophils # (1.3-7.7) k/uL Lymphocytes # (1.0-4.8) k/uL Monocytes # (0-1.0) k/uL ABG pH (7.35-7.45) ABG pCO2 (35-45) mmHg ABG pO2 (83-108) mmHg ABG HCO3 (21-25) mmol/L ABG Total CO2 (19-24) mmol/L ABG O2 Saturation (94-97) % ABG Hematocrit (34.0-46.0) % ABG Sodium (135-146) mmol/L ABG Potassium (3.4-4.5) mmol/L ABG Ionized Calcium (4.5-5.3) mg/dL ABG Glucose (75-99) mg/dL ABG Lactic Acid (0.5-1.6) mmol/L Hemoglobin (13.0-17.5) gm/dL Sodium (137-145) mmol/L Chloride (98-107) mmol/L Glucose (74-99) mg/dL POC Glucose (mg/dL) 173 H 148 H (75-99) mg/dL Calcium (8.4-10.2) mg/dL Magnesium (1.6-2.3) mg/dL AST (17-59) U/L Alkaline Phosphatase (38-126) U/L Total Protein (6.3-8.2) g/dL Albumin (3.5-5.0) g/dL Arterial Blood Potassium (3.4-4.5) mmol/L Arterial Blood Glucose (75-99) mg/dL Crossmatch - Imaging and Cardiology Chest x-ray: report reviewed, image reviewed Assessment and Plan Assessment: 1. Coronary artery disease with left main disease, status post three-vessel coronary artery bypass grafting surgery 2. Hypertension 3. Dyslipidemia 4. Peripheral vascular disease 5. Daily marijuana use 6. COPD with a preoperative FEV1 of 46% of predicted value 7. Chronic ongoing tobacco dependence Plan: 1. Continue aspirin, statin, Plavix, beta magen therapy. Will increase metoprolol tartrate to 25 mg by mouth twice a day. 2. Discontinue nitroglycerin drip. 3. Wean O2 as tolerated. Encourage incentive spirometry use 10 times every hour while awake. Bronchodilators per pulmonology management. 4. Continue to encourage smoking cessation. Discussed the importance of smoking cessation with the patient. 5. Increase activity as tolerated. Up in chair for all meals, ambulate when able. PT/OT/cardiac rehab consulted. 6. Will monitor daily labs and chest x-rays. Electrolyte replacement per lisandro col. 7. Pain control with current medication regimen. 8. GI/DVT prophylaxis. 9. Insulin management per primary care service. 10. Will keep chest tubes, Hawthorne catheter and epicardial pacemaker wires in place today. Remove [place] catheter and place a right IJ Cordis to continue CVP monitoring. 11. More recommendations to follow based on patient's clinical course. Time with Patient: Greater than 30
[2019-12-28 10:16] VITALS: BMI 32.5
[2019-12-28 10:39] LABS: Glucose,Whole Blood 158 mg/dL (75-99)
[2019-12-28 11:52] LABS: Glucose,Whole Blood 136 mg/dL (75-99)
[2019-12-28] MEDS: LACTATED RINGERS 1,000 ML IV SCH (12:02)
--- NOTE | 2019-12-28 12:02 | P.PN ---
Subjective Progress Note Date: 12/28/19 On today's evaluation of 12/28/2019, the patient is postop day #1. The patient underwent coronary artery bypass surgery. Postop, the patient was seen and evaluated in the intensive care unit. The patient was extubated without any major difficulties. He was slightly bulbous bronchospastic and wheezy. He was placed on bronchodilators and he was given a dose of Solu-Medrol. This morning is sitting up on a chair and is calm and comfortable. He is pulse oxing 95% about 2 by nasal cannula. He is using incentive spirometer and he is pulling approximately 5. The chest tubes are in place. The mediastinal chest tube is resulted in to 558 output and the pleural chest tube is resulted in to 60 mL ou tput. The cardiac output is at 7.8 with an index of 3.8. CVP is at 4. The patient is on normal saline at the rate of 50 mL an hour. Insulin drip is running at 3.5 units per hour. The patient has no complaints. His communicating. The atrial and ventricular epicardial pacemaker wires are in sukhwinder ce and the patient has a bedside pacemaker generator at the rate of 50. His cardiac cardiac rhythm is sinus. Objective - Vital Signs Vital signs: Vital Signs Temp 98.2 F 12/28/19 08:00 Pulse 79 12/28/19 11:00 Resp 17 12/28/19 11:00 BP 91/65 12/28/19 07:00 Pulse Ox 94 L 12/28/19 11:00 Intake & Output 12/27/19 12/28/19 12/28/19 18:59 06:59 18:59 Intake Total 504.385 0781.645 146.256 Output Total 1429 1173 525 Balance -1009.547 -167.355 -378.744 Weight 89.5 kg 100.2 kg 100.2 kg Intake: IV 202 600 130 Lactated Ringers 1,000 ml 100 600 130 @ 20 mls/hr IV .Q24H [facility] Rx#:[id number] Intake, IV Titration 217.453 405.645 16.256 Amount ACETAMINOPHEN IV (For NPO 100 100 ) 1,000 mg In Empty Bag 1 bag @ 400 mls/hr IVPB Q6HR [facility] Rx#:[id number] Albumin Human 5% 250 ml 250 In Empty Bag 1 bag @ 250 mls/hr IVPB Q1HR PRN Rx#: [id number] Insulin Regular 100 unit 5.645 16.256 In Sodium Chloride 0.9% 100 ml @ Per Protocol IV .Q0M [facility] Rx#:[id number] Propofol 1,000 mg In 17.453 Empty Bag 1 bag @ Titrate IV .Q0M [facility] Rx#: [id number] ceFAZolin 2 gm In Sodium 100 50 Chloride 0.9% 50 ml @ 100 mls/hr IVPB Q8H [facility] Rx#: [id number] Output: Chest Tube Drainage 160 506 275 Chest Tube Left Mid- 0 30 125 Clavicular Chest Chest Tube Mediastinal 160 476 150 Urine 369 667 250 Estimated Blood Loss 900 Other: Voiding Method Indwelling Catheter ABP, PAP, CO, CI - Last Documented Arterial Blood Pressure 141/63 Pulmonary Artery Pressure 17/8 Cardiac Output 7.8 Cardiac Index 3.8 - Exam - Constitutional General appearance: Present: cooperative, no acute distress, obese - EENT Eyes: Present: PERRLA, poor dentition, normal appearance. Absent: scleral icterus ENT: Present: hearing grossly normal. Absent: thrush - Neck Details: Neck is supple, no JVD, no lymphadenopathy. - Respiratory Details: Lung sounds essentially clear throughout, few scattered expiratory wheezes to his bilateral bases. Respirations are symmetrical and nonlabored. Oxygen saturation is 93% on room air. Achieving 1000 mL on his incentive spirometry at encouragement. Mediastinal and left pleural chest tubes remain in place to low continuous wall suction -20 cm H2O. No air leak is present. Mediastinal chest tubes drained 350 mL output of thin serosanguineous drainage in the last 8 hours and 550 mL since surgery. Left pleural chest tube drained 25 mL of thin serosanguineous drainage in the last 8 hours and 55 mL output since surgery. - Cardiovascular Details: Rate and rhythm and rate. S1 and S2 present, negative for S3, gallop or murmur. Sternum is stable. Atrial and ventricular epicardial pacemaker wires remain in place and connected to back up to bedside pacemaker generator with a VVI 50. Heart hugger is in place and he is demonstrating appropriate use. Knee-high MICKY hose and sequential compression devices in place to his bilateral lower extremities. No edema present. - Gastrointestinal Gastrointestinal Comment(s): Abdomen is soft, nontender and nondistended. Active bowel sounds present in all 4 abdominal quadrants. No guarding or rigidity. No organomegaly appreciated. Tolerating oral intake. - Genitourinary Genitourinary Comment(s): Hawthorne catheter for accurate I&O. Draining clear daniel urine. 440 mL output in the last 8 hours. - Integumentary Integumentary Comment(s): Skin is warm and dry. No clubbing or cyanosis is present. No rash or abnormal pigmentation is present. Midline sternal incision is clean, dry and approximated. No drainage or redness is present. Left lower extremity EVH site is clean, dry and approximated. No drainage or redness is present. - Neurologic Neurologic: Present: CNII-XII intact - Musculoskeletal Musculoskeletal: Present: gait normal, generalized weakness, strength equal bilaterally - Psychiatric Psychiatric: Present: A&O x's 3, appropriate affect, intact judgment & insight - Labs CBC & Chem 7: 12/28/19 04:45 12/28/19 04:45 Labs: Abnormal Lab Results - Last 24 Hours (Table) 12/24/19 12/27/19 12/27/19 Range/Units 08:50 10:09 11:26 WBC (3.8-10.6) k/uL RBC (4.30-5.90) m/uL Hgb (13.0-17.5) gm/dL Hct (39.0-53.0) % Plt Count (150-450) k/uL Neutrophils # (1.3-7.7) k/uL Lymphocytes # (1.0-4.8) k/uL Monocytes # (0-1.0) k/uL ABG pH 7.33 L 7.25 L (7.35-7.45) ABG pCO2 52 H 63 H (35-45) mmHg ABG pO2 >420 H (83-108) mmHg ABG HCO3 27 H 27 H (21-25) mmol/L ABG Total CO2 29 H 29 H (19-24) mmol/L ABG O2 Saturation 99.9 H (94-97) % ABG Hematocrit (34.0-46.0) % ABG Sodium (135-146) mmol/L ABG Potassium (3.4-4.5) mmol/L ABG Ionized Calcium (4.5-5.3) mg/dL ABG Glucose 135 H (75-99) mg/dL ABG Lactic Acid (0.5-1.6) mmol/L Hemoglobin 12.9 L 12.1 L (13.0-17.5) gm/dL Sodium (137-145) mmol/L Chloride (98-107) mmol/L Glucose (74-99) mg/dL POC Glucose (mg/dL) (75-99) mg/dL Calcium (8.4-10.2) mg/dL Magnesium (1.6-2.3) mg/dL AST (17-59) U/L Alkaline Phosphatase (38-126) U/L Total Protein (6.3-8.2) g/dL Albumin (3.5-5.0) g/dL Arterial Blood Potassium (3.4-4.5) mmol/L Arterial Blood Glucose 135 H (75-99) mg/dL Crossmatch See Detail 12/27/19 12/27/19 12/27/19 Range/Units 12:07 12:46 13:09 WBC (3.8-10.6) k/uL RBC (4.30-5.90) m/uL Hgb (13.0-17.5) gm/dL Hct (39.0-53.0) % Plt Count (150-450) k/uL Neutrophils # (1.3-7.7) k/uL Lymphocytes # (1.0-4.8) k/uL Monocytes # (0-1.0) k/uL ABG pH 7.29 L (7.35-7.45) ABG pCO2 50 H (35-45) mmHg ABG pO2 409 H 333 H 357 H (83-108) mmHg ABG HCO3 (21-25) mmol/L ABG Total CO2 26 H 25 H 25 H (19-24) mmol/L ABG O2 Saturation 99.9 H 100.0 H 100.0 H (94-97) % ABG Hematocrit 31 L 28 L 28 L (34.0-46.0) % ABG Sodium 133 L 134 L (135-146) mmol/L ABG Potassium 5.6 H 5.6 H (3.4-4.5) mmol/L ABG Ionized Calcium 4.1 L 4.2 L 4.3 L (4.5-5.3) mg/dL ABG Glucose 133 H 212 H 203 H (75-99) mg/dL ABG Lactic Acid 2.0 H 2.4 H* (0.5-1.6) mmol/L Hemoglobin 10.1 L 9.0 L 9.1 L (13.0-17.5) gm/dL Sodium (137-145) mmol/L Chloride (98-107) mmol/L Glucose (74-99) mg/dL POC Glucose (mg/dL) (75-99) mg/dL Calcium (8.4-10.2) mg/dL Magnesium (1.6-2.3) mg/dL AST (17-59) U/L Alkaline Phosphatase (38-126) U/L Total Protein (6.3-8.2) g/dL Albumin (3.5-5.0) g/dL Arterial Blood Potassium 5.6 H 5.6 H (3.4-4.5) mmol/L Arterial Blood Glucose 133 H 212 H 203 H (75-99) mg/dL Crossmatch 12/27/19 12/27/19 12/27/19 Range/Units 13:40 14:29 14:53 WBC (3.8-10.6) k/uL RBC (4.30-5.90) m/uL Hgb (13.0-17.5) gm/dL Hct (39.0-53.0) % Plt Count (150-450) k/uL Neutrophils # (1.3-7.7) k/uL Lymphocytes # (1.0-4.8) k/uL Monocytes # (0-1.0) k/uL ABG pH 7.21 L 7.25 L (7.35-7.45) ABG pCO2 64 H 59 H (35-45) mmHg ABG pO2 365 H >420 H >420 H (83-108) mmHg ABG HCO3 26 H 26 H (21-25) mmol/L ABG Total CO2 28 H 28 H (19-24) mmol/L ABG O2 Saturation 100.0 H 99.7 H 99.7 H (94-97) % ABG Hematocrit 27 L 33 L (34.0-46.0) % ABG Sodium (135-146) mmol/L ABG Potassium 4.9 H (3.4-4.5) mmol/L ABG Ionized Calcium 4.4 L (4.5-5.3) mg/dL ABG Glucose 173 H 129 H 105 H (75-99) mg/dL ABG Lactic Acid 2.7 H* 1.8 H (0.5-1.6) mmol/L Hemoglobin 8.9 L 10.7 L 11.1 L (13.0-17.5) gm/dL Sodium (137-145) mmol/L Chloride (98-107) mmol/L Glucose (74-99) mg/dL POC Glucose (mg/dL) (75-99) mg/dL Calcium (8.4-10.2) mg/dL Magnesium (1.6-2.3) mg/dL AST (17-59) U/L Alkaline Phosphatase (38-126) U/L Total Protein (6.3-8.2) g/dL Albumin (3.5-5.0) g/dL Arterial Blood Potassium 4.9 H (3.4-4.5) mmol/L Arterial Blood Glucose 173 H 129 H 105 H (75-99) mg/dL Crossmatch 12/27/19 12/27/19 12/27/19 Range/Units 15:40 15:40 16:14 WBC 21.1 H (3.8-10.6) k/uL RBC 3.54 L (4.30-5.90) m/uL Hgb 11.0 L (13.0-17.5) gm/dL Hct 32.4 L (39.0-53.0) % Plt Count 119 L (150-450) k/uL Neutrophils # 17.9 H (1.3-7.7) k/uL Lymphocytes # (1.0-4.8) k/uL Monocytes # 1.2 H (0-1.0) k/uL ABG pH 7.24 L (7.35-7.45) ABG pCO2 65 H (35-45) mmHg ABG pO2 >400 H (83-108) mmHg ABG HCO3 28 H (21-25) mmol/L ABG Total CO2 30 H (19-24) mmol/L ABG O2 Saturation 99.6 H (94-97) % ABG Hematocrit (34.0-46.0) % ABG Sodium (135-146) mmol/L ABG Potassium (3.4-4.5) mmol/L ABG Ionized Calcium (4.5-5.3) mg/dL ABG Glucose (75-99) mg/dL ABG Lactic Acid (0.5-1.6) mmol/L Hemoglobin (13.0-17.5) gm/dL Sodium (137-145) mmol/L Chloride 108 H (98-107) mmol/L Glucose 69 L (74-99) mg/dL POC Glucose (mg/dL) (75-99) mg/dL Calcium 8.1 L (8.4-10.2) mg/dL Magnesium 2.6 H (1.6-2.3) mg/dL AST (17-59) U/L Alkaline Phosphatase 27 L (38-126) U/L Total Protein 4.6 L (6.3-8.2) g/dL Albumin 2.9 L (3.5-5.0) g/dL Arterial Blood Potassium (3.4-4.5) mmol/L Arterial Blood Glucose (75-99) mg/dL Crossmatch 12/27/19 12/27/19 12/27/19 Range/Units 16:33 16:54 17:45 WBC 21.2 H (3.8-10.6) k/uL RBC 4.00 L (4.30-5.90) m/uL Hgb 11.9 L (13.0-17.5) gm/dL Hct 36.5 L (39.0-53.0) % Plt Count (150-450) k/uL Neutrophils # 18.0 H (1.3-7.7) k/uL Lymphocytes # (1.0-4.8) k/uL Monocytes # 1.3 H (0-1.0) k/uL ABG pH (7.35-7.45) ABG pCO2 (35-45) mmHg ABG pO2 (83-108) mmHg ABG HCO3 (21-25) mmol/L ABG Total CO2 (19-24) mmol/L ABG O2 Saturation (94-97) % ABG Hematocrit (34.0-46.0) % ABG Sodium (135-146) mmol/L ABG Potassium (3.4-4.5) mmol/L ABG Ionized Calcium (4.5-5.3) mg/dL ABG Glucose (75-99) mg/dL ABG Lactic Acid (0.5-1.6) mmol/L Hemoglobin (13.0-17.5) gm/dL Sodium (137-145) mmol/L Chloride (98-107) mmol/L Glucose (74-99) mg/dL POC Glucose (mg/dL) 70 L 71 L (75-99) mg/dL Calcium (8.4-10.2) mg/dL Magnesium (1.6-2.3) mg/dL AST (17-59) U/L Alkaline Phosphatase (38-126) U/L Total Protein (6.3-8.2) g/dL Albumin (3.5-5.0) g/dL Arterial Blood Potassium (3.4-4.5) mmol/L Arterial Blood Glucose (75-99) mg/dL Crossmatch 12/27/19 12/27/19 12/27/19 Range/Units 18:04 19:29 20:03 WBC (3.8-10.6) k/uL RBC (4.30-5.90) m/uL Hgb (13.0-17.5) gm/dL Hct (39.0-53.0) % Plt Count (150-450) k/uL Neutrophils # (1.3-7.7) k/uL Lymphocytes # (1.0-4.8) k/uL Monocytes # (0-1.0) k/uL ABG pH 7.33 L (7.35-7.45) ABG pCO2 47 H (35-45) mmHg ABG pO2 161 H (83-108) mmHg ABG HCO3 (21-25) mmol/L ABG Total CO2 26 H (19-24) mmol/L ABG O2 Saturation 98.9 H (94-97) % ABG Hematocrit (34.0-46.0) % ABG Sodium (135-146) mmol/L ABG Potassium (3.4-4.5) mmol/L ABG Ionized Calcium (4.5-5.3) mg/dL ABG Glucose (75-99) mg/dL ABG Lactic Acid (0.5-1.6) mmol/L Hemoglobin (13.0-17.5) gm/dL Sodium (137-145) mmol/L Chloride (98-107) mmol/L Glucose (74-99) mg/dL POC Glucose (mg/dL) 121 H 131 H (75-99) mg/dL Calcium (8.4-10.2) mg/dL Magnesium (1.6-2.3) mg/dL AST (17-59) U/L Alkaline Phosphatase (38-126) U/L Total Protein (6.3-8.2) g/dL Albumin (3.5-5.0) g/dL Arterial Blood Potassium (3.4-4.5) mmol/L Arterial Blood Glucose (75-99) mg/dL Crossmatch 12/27/19 12/27/19 12/27/19 Range/Units 21:00 21:15 22:20 WBC 16.8 H (3.8-10.6) k/uL RBC 3.87 L (4.30-5.90) m/uL Hgb 11.7 L (13.0-17.5) gm/dL Hct 35.7 L (39.0-53.0) % Plt Count 125 L (150-450) k/uL Neutrophils # 15.3 H (1.3-7.7) k/uL Lymphocytes # 0.7 L (1.0-4.8) k/uL Monocytes # (0-1.0) k/uL ABG pH (7.35-7.45) ABG pCO2 (35-45) mmHg ABG pO2 (83-108) mmHg ABG HCO3 (21-25) mmol/L ABG Total CO2 (19-24) mmol/L ABG O2 Saturation (94-97) % ABG Hematocrit (34.0-46.0) % ABG Sodium (135-146) mmol/L ABG Potassium (3.4-4.5) mmol/L ABG Ionized Calcium (4.5-5.3) mg/dL ABG Glucose (75-99) mg/dL ABG Lactic Acid (0.5-1.6) mmol/L Hemoglobin (13.0-17.5) gm/dL Sodium (137-145) mmol/L Chloride (98-107) mmol/L Glucose (74-99) mg/dL POC Glucose (mg/dL) 137 H 127 H (75-99) mg/dL Calcium (8.4-10.2) mg/dL Magnesium (1.6-2.3) mg/dL AST (17-59) U/L Alkaline Phosphatase (38-126) U/L Total Protein (6.3-8.2) g/dL Albumin (3.5-5.0) g/dL Arterial Blood Potassium (3.4-4.5) mmol/L Arterial Blood Glucose (75-99) mg/dL Crossmatch 12/27/19 12/28/19 12/28/19 Range/Units 23:12 00:31 01:39 WBC (3.8-10.6) k/uL RBC (4.30-5.90) m/uL Hgb (13.0-17.5) gm/dL Hct (39.0-53.0) % Plt Count (150-450) k/uL Neutrophils # (1.3-7.7) k/uL Lymphocytes # (1.0-4.8) k/uL Monocytes # (0-1.0) k/uL ABG pH (7.35-7.45) ABG pCO2 (35-45) mmHg ABG pO2 (83-108) mmHg ABG HCO3 (21-25) mmol/L ABG Total CO2 (19-24) mmol/L ABG O2 Saturation (94-97) % ABG Hematocrit (34.0-46.0) % ABG Sodium (135-146) mmol/L ABG Potassium (3.4-4.5) mmol/L ABG Ionized Calcium (4.5-5.3) mg/dL ABG Glucose (75-99) mg/dL ABG Lactic Acid (0.5-1.6) mmol/L Hemoglobin (13.0-17.5) gm/dL Sodium (137-145) mmol/L Chloride (98-107) mmol/L Glucose (74-99) mg/dL POC Glucose (mg/dL) 157 H 111 H 137 H (75-99) mg/dL Calcium (8.4-10.2) mg/dL Magnesium (1.6-2.3) mg/dL AST (17-59) U/L Alkaline Phosphatase (38-126) U/L Total Protein (6.3-8.2) g/dL Albumin (3.5-5.0) g/dL Arterial Blood Potassium (3.4-4.5) mmol/L Arterial Blood Glucose (75-99) mg/dL Crossmatch 12/28/19 12/28/19 12/28/19 Range/Units 04:30 04:45 04:45 WBC 18.5 H (3.8-10.6) k/uL RBC 3.77 L (4.30-5.90) m/uL Hgb 11.5 L (13.0-17.5) gm/dL Hct 34.3 L (39.0-53.0) % Plt Count 118 L (150-450) k/uL Neutrophils # 16.7 H (1.3-7.7) k/uL Lymphocytes # 0.8 L (1.0-4.8) k/uL Monocytes # (0-1.0) k/uL ABG pH (7.35-7.45) ABG pCO2 (35-45) mmHg ABG pO2 (83-108) mmHg ABG HCO3 (21-25) mmol/L ABG Total CO2 (19-24) mmol/L ABG O2 Saturation (94-97) % ABG Hematocrit (34.0-46.0) % ABG Sodium (135-146) mmol/L ABG Potassium (3.4-4.5) mmol/L ABG Ionized Calcium (4.5-5.3) mg/dL ABG Glucose (75-99) mg/dL ABG Lactic Acid (0.5-1.6) mmol/L Hemoglobin (13.0-17.5) gm/dL Sodium 135 L (137-145) mmol/L Chloride (98-107) mmol/L Glucose 151 H (74-99) mg/dL POC Glucose (mg/dL) 150 H (75-99) mg/dL Calcium (8.4-10.2) mg/dL Magnesium (1.6-2.3) mg/dL AST 67 H (17-59) U/L Alkaline Phosphatase (38-126) U/L Total Protein 5.4 L (6.3-8.2) g/dL Albumin (3.5-5.0) g/dL Arterial Blood Potassium (3.4-4.5) mmol/L Arterial Blood Glucose (75-99) mg/dL Crossmatch 12/28/19 12/28/19 12/28/19 Range/Units 07:02 07:56 10:38 WBC (3.8-10.6) k/uL RBC (4.30-5.90) m/uL Hgb (13.0-17.5) gm/dL Hct (39.0-53.0) % Plt Count (150-450) k/uL Neutrophils # (1.3-7.7) k/uL Lymphocytes # (1.0-4.8) k/uL Monocytes # (0-1.0) k/uL ABG pH (7.35-7.45) ABG pCO2 (35-45) mmHg ABG pO2 (83-108) mmHg ABG HCO3 (21-25) mmol/L ABG Total CO2 (19-24) mmol/L ABG O2 Saturation (94-97) % ABG Hematocrit (34.0-46.0) % ABG Sodium (135-146) mmol/L ABG Potassium (3.4-4.5) mmol/L ABG Ionized Calcium (4.5-5.3) mg/dL ABG Glucose (75-99) mg/dL ABG Lactic Acid (0.5-1.6) mmol/L Hemoglobin (13.0-17.5) gm/dL Sodium (137-145) mmol/L Chloride (98-107) mmol/L Glucose (74-99) mg/dL POC Glucose (mg/dL) 173 H 148 H 158 H (75-99) mg/dL Calcium (8.4-10.2) mg/dL Magnesium (1.6-2.3) mg/dL AST (17-59) U/L Alkaline Phosphatase (38-126) U/L Total Protein (6.3-8.2) g/dL Albumin (3.5-5.0) g/dL Arterial Blood Potassium (3.4-4.5) mmol/L Arterial Blood Glucose (75-99) mg/dL Crossmatch 12/28/19 Range/Units 11:51 WBC (3.8-10.6) k/uL RBC (4.30-5.90) m/uL Hgb (13.0-17.5) gm/dL Hct (39.0-53.0) % Plt Count (150-450) k/uL Neutrophils # (1.3-7.7) k/uL Lymphocytes # (1.0-4.8) k/uL Monocytes # (0-1.0) k/uL ABG pH (7.35-7.45) ABG pCO2 (35-45) mmHg ABG pO2 (83-108) mmHg ABG HCO3 (21-25) mmol/L ABG Total CO2 (19-24) mmol/L ABG O2 Saturation (94-97) % ABG Hematocrit (34.0-46.0) % ABG Sodium (135-146) mmol/L ABG Potassium (3.4-4.5) mmol/L ABG Ionized Calcium (4.5-5.3) mg/dL ABG Glucose (75-99) mg/dL ABG Lactic Acid (0.5-1.6) mmol/L Hemoglobin (13.0-17.5) gm/dL Sodium (137-145) mmol/L Chloride (98-107) mmol/L Glucose (74-99) mg/dL POC Glucose (mg/dL) 136 H (75-99) mg/dL Calcium (8.4-10.2) mg/dL Magnesium (1.6-2.3) mg/dL AST (17-59) U/L Alkaline Phosphatase (38-126) U/L Total Protein (6.3-8.2) g/dL Albumin (3.5-5.0) g/dL Arterial Blood Potassium (3.4-4.5) mmol/L Arterial Blood Glucose (75-99) mg/dL Crossmatch Assessment and Plan Plan: 1 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 The patient underwent three-vessel bypass surgery. The patient is postop day #1. The patient is doing well. The patient's hemodynamically stable. Hemodynamic parameters were noted. Chronic up with was noted. Adequate urine output. No issues for now. 2 post thoracotomy, and the patient was extubated without any major difficulties. The mediastinal and left pleural chest tubes are still in place pH chest x-ray shows no evidence of any pneumothorax and there is adequate expansion of both lungs. 3 COPD with a component of COPD exacerbation, improved with bronchodilators and a dose of Solu-Medrol. The patient is using incentive spirometer. The patient has no active bronchospasm wheezing. Preoperatively her FEV1 is no other 46% of predicted. 4 hypertension 5 hyperlipidemia 6 peripheral vascular disease 7 tobacco marijuana smoking Plan Continue using incentive spirometer Continue albuterol neb last treatment [id number] Monitor the hemodynamic parameters Remove the [place] catheter if this is okay with surgery Monitor the output from the chest tubes Adequate pain control Continue insulin drip for blood sugar control Continue the combination of aspirin and Plavix and beta blockers and will increase the metoprolol to 25 mg by mouth twice a day We'll keep the patient ICU for 24 hours.
[2019-12-28 15:05] LABS: Glucose,Whole Blood 136 mg/dL (75-99)
[2019-12-28] MEDS: NITROGLYCERIN-D5W PMX 50 MG in DEXTROSE/WATER 1 250ML.BAG IV SCH (15:47)
[2019-12-28 19:04] LABS: Glucose,Whole Blood 138 mg/dL (75-99)
[2019-12-28 20:56] LABS: Glucose,Whole Blood 140 mg/dL (75-99)
[2019-12-28] MEDS ORDERED: METOPROLOL TARTRATE 25 MG TAB PO SCH (21:00)
[2019-12-28] MEDS: SENNOSIDES-DOCUSATE SODIUM 1 EACH TAB PO SCH (21:00)
[2019-12-28] MEDS: HYDROcodone/APAP 5-325MG 1 EACH TAB PO PRN (21:01)
[2019-12-28 22:33] LABS: Glucose,Whole Blood 97 mg/dL (75-99)
[2019-12-28 23:14] LABS: Glucose,Whole Blood 117 mg/dL (75-99)
[2019-12-29 00:39] LABS: Glucose,Whole Blood 108 mg/dL (75-99)
[2019-12-29 02:04] LABS: Glucose,Whole Blood 136 mg/dL (75-99)
[2019-12-29 03:26] LABS: Glucose,Whole Blood 126 mg/dL (75-99)
[2019-12-29 04:26] LABS: Glucose,Whole Blood 98 mg/dL (75-99)
[2019-12-29 04:50] LABS: Basophils % (A) 0 %; Eosinophils # (A) 0.1 k/uL (0-0.7); Eosinophils % (A) 1 %; HCT 30.8 % (39.0-53.0); HGB 10.5 gm/dL (13.0-17.5); Lymphocytes # (A) 2.4 k/uL (1.0-4.8); Lymphocytes % (A) 16 %; MCHC 34.1 g/dL (31.0-37.0); MCV 90.9 fL (80.0-100.0); Mean Platelet Volume 9.6; Monocytes # (A) 0.9 k/uL (0-1.0); Monocytes % (A) 6 %; Neutrophils # (A) 11.6 k/uL (1.3-7.7); Neutrophils % (A) 76 %; Platelet Count 110 k/uL (150-450); RBC 3.38 m/uL (4.30-5.90); RDW 13.3 % (11.5-15.5); WBC 15.3 k/uL (3.8-10.6)
[2019-12-29 04:59] LABS: Ionized Calcium 4.8 mg/dL (4.5-5.3)
[2019-12-29 05:15] LABS: ALT 18 U/L (4-49); AST 68 U/L (17-59); African American GFR (CKD) >90 (>60 ml/min/1.73 sqM); Albumin 3.3 g/dL (3.5-5.0); Alkaline Phosphatase 32 U/L (38-126); Anion Gap 4 mmol/L; Blood Urea Nitrogen 21 mg/dL (9-20); Calcium 8.3 mg/dL (8.4-10.2); Carbon Dioxide 26 mmol/L (22-30); Chloride 102 mmol/L (98-107); Glucose 99 mg/dL (74-99); Non-African American GFR(CKD) >90 (>60 ml/min/1.73 sqM); Potassium 4.3 mmol/L (3.5-5.1); Sodium 132 mmol/L (137-145); Total Bilirubin 0.5 mg/dL (0.2-1.3); Total Protein 5.2 g/dL (6.3-8.2)
[2019-12-29 06:23] LABS: Glucose,Whole Blood 124 mg/dL (75-99)
--- NOTE | 2019-12-29 06:27 | XR ---
EXAMINATION TYPE: XR chest 1V portable DATE OF EXAM: 12/29/2019 HISTORY: Post Operative Cardiac Surgery. REFERENCE: Previous study dated 12/28/2019. FINDINGS: There has been a midline sternotomy. Left pleural drain remains in place. The patient's rig ht internal jugular catheter is been removed. The heart is enlarged. There is elevation of the left hemidiaphragm. There is improved atelectasis in the left lung. The right lung is essentially clear. There is a small left effusion. IMPRESSION: IMPROVING ATELECTATIC CHANGE, LEFT LUNG.
[2019-12-29 07:09] LABS: Glucose,Whole Blood 106 mg/dL (75-99)
[2019-12-29 07:52] LABS: Glucose,Whole Blood 114 mg/dL (75-99)
[2019-12-29] MEDS: KETOROLAC 30 MG/ML 1 ML VIAL IVP SCH ×4 (08:13→23:47)
[2019-12-29] MEDS: HEPARIN SODIUM,PORCINE 5,000 UNIT/ML 1 ML VIAL SQ SCH ×3 (08:14→23:48)
[2019-12-29] MEDS: ASPIRIN 325 MG TAB PO SCH (08:14)
[2019-12-29] MEDS: PANTOPRAZOLE 40 MG TABLET PO SCH (08:14)
[2019-12-29] MEDS: METOPROLOL TARTRATE 50 MG TAB PO SCH ×2 (08:14→20:49)
[2019-12-29] MEDS: FOLIC ACID 1 MG TAB PO SCH (08:14)
[2019-12-29] MEDS: HYDROcodone/APAP 5-325MG 1 EACH TAB PO PRN (08:15)
[2019-12-29] MEDS: THIAMINE 100 MG TAB PO SCH (08:15)
[2019-12-29] MEDS: IPRATROPIUM-ALBUTEROL 3 ML NEB INHALATION SCH ×4 (08:27→19:21)
[2019-12-29] MEDS ORDERED: FUROSEMIDE 10 MG/ML 2 ML VIAL IV ONE (09:53)
--- NOTE | 2019-12-29 10:53 | P.PN ---
Subjective Progress Note Date: 12/29/19 Principal diagnosis: Coronary artery disease with left main disease. Past medical history significant for hypertension, dyslipidemia, severe peripheral vascular disease, obesity, COPD with a preoperative FEV1 46% of predicted value, daily marijuana use and chronic ongoing tobacco dependence. POD #2 coronary artery bypass grafting 3 vessels with placement of the left internal mammary artery to left anterior descending coronary artery, a reverse greater saphenous vein graft to the diagonal coronary artery, a reverse greater saphenous vein graft to the obtuse marginal coronary artery. Endoscopic harvesting of the left greater saphenous vein. Epi-aortic ultrasound. Ligation of the left atrial appendage using a 40 mm Atriclip. Intraoperative transesophageal echocardiogram. Postoperative acute blood loss anemia, an expected outcome given cardiopulmonary bypass and hemodilution. Patient was seen in follow-up today 12/29/2019 at his bedside in the intensive care unit. The patient is sitting up to the bedside chair, is awake, alert and oriented 3 and is in no acute distress. He denies any complaints of shortness of breath, although he is complaining of surgical type pain to his chest tube insertion sites. Oxygen saturations are 93% on room air and he is achieving 750 - 1000 mL on his incentive spirometry. Mediastinal and left pleural chest tubes remain in place to low continuous wall suction -20 cm H2O. No no air leak is present to his mediastinal chest tubes although he has an intermittent air leak to his left pleural chest tube. Mediastinal chest tubes are draining thin serosanguineous drainage with 130 mL output in the last 8 hours and 530 mL output in the last 24 hours. Left pleural chest tube is draining thin serosanguineous drainage with 30 mL output in the last 8 hours and 255 mL output in the last 24 hours. He has been ambulating in the intensive care unit hallway with minimal assistance from nursing staff. Bedside telemetry showing normal sinus rhythm heart rate 93. Objective - Vital Signs Vital signs: Vital Signs Temp 99 F 12/29/19 08:00 Pulse 92 12/29/19 08:00 Resp 20 12/29/19 08:00 BP 119/77 12/29/19 07:00 Pulse Ox 93 L 12/29/19 08:00 Intake & Output 12/28/19 12/29/19 12/29/19 18:59 06:59 18:59 Intake Total 427.997 384.712 20 Output Total 1170 1095 40 Balance -742.003 -710.288 -20 Weight 100.2 kg 99.8 kg Intake: IV 400 370 20 Lactated Ringers 1,000 ml 400 370 20 @ 20 mls/hr IV .Q24H FERNIE Rx#:[id number] Intake, IV Titration 27.997 14.712 Amount Insulin Regular 100 unit 27.997 14.712 In Sodium Chloride 0.9% 100 ml @ Per Protocol IV .Q0M FERNIE Rx#:[id number] Output: Chest Tube Drainage 485 300 40 Chest Tube Left Lateral 10 Chest Chest Tube Left Mid- 185 70 0 Clavicular Chest Chest Tube Mediastinal 300 230 30 Urine 685 795 Other: Voiding Method Indwelling Catheter Indwelling Catheter # Voids 0 ABP, PAP, CO, CI - Last Documented Arterial Blood Pressure 148/67 Pulmonary Artery Pressure 17/8 Cardiac Output 7.8 Cardiac Index 3.8 - Constitutional General appearance: Present: cooperative, no acute distress, obese - EENT Eyes: Present: PERRLA, poor dentition, normal appearance. Absent: scleral icterus ENT: Present: hearing grossly normal - Neck Details: Neck is supple, no lymphadenopathy, no JVD. - Respiratory Details: Lung sounds with few scattered expiratory wheezes throughout, diminished to his bilateral bases left greater than right. No rhonchi or crackles. Respirations are symmetrical and nonlabored. Oxygen saturation is 93% on room air. Achieving 750-1000 milliliters on his incentive spirometry. Mediastinal and left pleural chest tubes remain in place to low continuous wall suction -20 cm H2O. No no air leak is present to his mediastinal chest tubes although he has an intermittent air leak to his left pleural chest tube. Mediastinal chest tubes are draining thin serosanguineous drainage with 130 mL output in the last 8 hours and 530 mL output in the last 24 hours. Left pleural chest tube is draining thin serosanguineous drainage with 30 mL output in the last 8 hours and 255 mL output in the last 24 hours. - Cardiovascular Details: Regular rhythm and rate. S1 and S2 present, negative for S3, gallop or murmur. Sternum is stable. Bedside telemetry showing normal sinus rhythm heart rate 93. Atrial and ventricular epicardial pacemaker wires are intact and connected to the bedside pacemaker generator with a VVI 50. Knee-high MICKY hose and sequential compression devices in place to his bilateral lower extremities. Heart hugger is in place and he is demonstrating appropriate use. No edema present. - Gastrointestinal Gastrointestinal Comment(s): Abdomen is soft, nontender and nondistended. Active bowel sounds present in all 4 abdominal quadrants. No guarding or rigidity. No organomegaly appreciated. Tolerating oral intake. Passing flatus. - Genitourinary Genitourinary Comment(s): Hawthorne catheter was discontinued this morning. Patient voiding clear daniel urine. - Integumentary Integumentary Comment(s): skin is warm and dry. No clubbing or cyanosis present. No rash or abnormal pigmentation is present. Midline sternal incision is clean, dry and approximated. No drainage or redness is present. Gauze dressing is clean, dry and intact. Left lower extremity EVH site is clean, dry and approximated. No drainage or redness is present. - Neurologic Neurologic: Present: CNII-XII intact - Musculoskeletal Musculoskeletal: Present: gait normal, generalized weakness, strength equal bilaterally - Psychiatric Psychiatric: Present: A&O x's 3, appropriate affect, intact judgment & insight - Allied health notes Allied health notes reviewed: nursing - Labs CBC & Chem 7: 12/29/19 04:42 12/29/19 04:42 Labs: Abnormal Lab Results - Last 24 Hours (Table) 12/28/19 12/28/19 12/28/19 Range/Units 11:51 15:04 19:02 WBC (3.8-10.6) k/uL RBC (4.30-5.90) m/uL Hgb (13.0-17.5) gm/dL Hct (39.0-53.0) % Plt Count (150-450) k/uL Neutrophils # (1.3-7.7) k/uL Sodium (137-145) mmol/L BUN (9-20) mg/dL POC Glucose (mg/dL) 136 H 136 H 138 H (75-99) mg/dL Calcium (8.4-10.2) mg/dL AST (17-59) U/L Alkaline Phosphatase (38-126) U/L Total Protein (6.3-8.2) g/dL Albumin (3.5-5.0) g/dL 12/28/19 12/28/19 12/29/19 Range/Units 20:55 23:13 00:36 WBC (3.8-10.6) k/uL RBC (4.30-5.90) m/uL Hgb (13.0-17.5) gm/dL Hct (39.0-53.0) % Plt Count (150-450) k/uL Neutrophils # (1.3-7.7) k/uL Sodium (137-145) mmol/L BUN (9-20) mg/dL POC Glucose (mg/dL) 140 H 117 H 108 H (75-99) mg/dL Calcium (8.4-10.2) mg/dL AST (17-59) U/L Alkaline Phosphatase (38-126) U/L Total Protein (6.3-8.2) g/dL Albumin (3.5-5.0) g/dL 12/29/19 12/29/19 12/29/19 Range/Units 02:01 03:24 04:42 WBC 15.3 H (3.8-10.6) k/uL RBC 3.38 L (4.30-5.90) m/uL Hgb 10.5 L (13.0-17.5) gm/dL Hct 30.8 L (39.0-53.0) % Plt Count 110 L (150-450) k/uL Neutrophils # 11.6 H (1.3-7.7) k/uL Sodium (137-145) mmol/L BUN (9-20) mg/dL POC Glucose (mg/dL) 136 H 126 H (75-99) mg/dL Calcium (8.4-10.2) mg/dL AST (17-59) U/L Alkaline Phosphatase (38-126) U/L Total Protein (6.3-8.2) g/dL Albumin (3.5-5.0) g/dL 12/29/19 12/29/19 12/29/19 Range/Units 04:42 06:22 07:08 WBC (3.8-10.6) k/uL RBC (4.30-5.90) m/uL Hgb (13.0-17.5) gm/dL Hct (39.0-53.0) % Plt Count (150-450) k/uL Neutrophils # (1.3-7.7) k/uL Sodium 132 L (137-145) mmol/L BUN 21 H (9-20) mg/dL POC Glucose (mg/dL) 124 H 106 H (75-99) mg/dL Calcium 8.3 L (8.4-10.2) mg/dL AST 68 H (17-59) U/L Alkaline Phosphatase 32 L (38-126) U/L Total Protein 5.2 L (6.3-8.2) g/dL Albumin 3.3 L (3.5-5.0) g/dL 12/29/19 Range/Units 07:50 WBC (3.8-10.6) k/uL RBC (4.30-5.90) m/uL Hgb (13.0-17.5) gm/dL Hct (39.0-53.0) % Plt Count (150-450) k/uL Neutrophils # (1.3-7.7) k/uL Sodium (137-145) mmol/L BUN (9-20) mg/dL POC Glucose (mg/dL) 114 H (75-99) mg/dL Calcium (8.4-10.2) mg/dL AST (17-59) U/L Alkaline Phosphatase (38-126) U/L Total Protein (6.3-8.2) g/dL Albumin (3.5-5.0) g/dL - Imaging and Cardiology Chest x-ray: report reviewed, image reviewed Assessment and Plan Assessment: 1. Coronary artery disease with left main disease, status post three-vessel coronary artery bypass grafting surgery 2. Hypertension 3. Dyslipidemia 4. Peripheral vascular disease 5. Daily marijuana use 6. COPD with a preoperative FEV1 of 46% of predicted value 7. Chronic ongoing tobacco dependence Plan: 1. Continue aspirin, statin, Plavix, beta magen therapy. Will increase metoprolol tartrate to 50 mg by mouth twice a day. 2. Remove mediastinal chest tubes. Keep left pleural chest tube in place and placed to waterseal. We will continue to monitor for airleak resolution. 3. Encourage incentive spirometry use 10 times every hour while awake. Bronchodilators per pulmonology management. 4. Continue to encourage smoking cessation. Discussed the importance of smoking cessation with the patient. 5. Increase activity as tolerated. Up in chair for all meals, ambulate when able. PT/OT/cardiac rehab consulted. 6. Will monitor daily labs and chest x-rays. Electrolyte replacement per protocol. 7. Pain control with current medication regimen. 8. GI/DVT prophylaxis. 9. Insulin management per primary care service. 10. Discontinue Hawthorne catheter, right IJ Cordis and right radial arterial line. Keep epicardial pacemaker wires in place today and grounded. 11. May transfer to 3 S cardiac stepdown unit when bed available. 12. More recommendations to follow based on patient's clinical course. Time with Patient: Greater than 30
[2019-12-29 12:34] LABS: Glucose,Whole Blood 122 mg/dL (75-99)
[2019-12-29] MEDS: guaiFENesin 600 MG TABLET.ER PO SCH ×2 (12:40→20:48)
[2019-12-29] MEDS: INSULIN ASPART (NovoLOG) 100 UNIT/ML VIAL SQ SCH ×3 (12:41→20:56)
--- NOTE | 2019-12-29 13:41 | P.PN ---
Subjective Progress Note Date: 12/29/19 On 12/29/2019, patient is postop day #2 following carotid bypass surgery. The patient is doing well. He is awake and alert. No focal neurological deficit. [place] catheter was removed. The patient continues to have his chest tubes in place. The mediastinal chest tubes have put out approximately 530 mL over the past 24 hours and 130s over the past 8 hours. The left pleural chest tube is put out approximately 2 55 mL over the past 24 hours and 30 mL over the past 8 hours. The chest x-ray showed adequate expansion of both lungs. No evidence of any pneumothorax. No evidence of any signs of any fluid overload. The patient insulin drip at 0.5 units an hour. No significant chest pain. The chest wall pain is under good control. Sternum stable clean and intact. No cardiac arrhythmias have been noted and the patient is doing well for now. Cardiac rhythm is sinus. Objective - Vital Signs Vital signs: Vital Signs Temp 99 F 12/29/19 12:00 Pulse 80 12/29/19 13:00 Resp 15 12/29/19 13:00 BP 94/66 12/29/19 13:00 Pulse Ox 95 12/29/19 13:00 Intake & Output 12/28/19 12/29/19 12/29/19 18:59 06:59 18:59 Intake Total 427.997 384.712 100 Output Total 1170 1095 70 Balance -742.003 -710.288 30 Weight 100.2 kg 99.8 kg Intake: IV 400 370 100 Lactated Ringers 1,000 ml 400 370 100 @ 20 mls/hr IV .Q24H FERNIE Rx#:[id number] Intake, IV Titration 27.997 14.712 Amount Insulin Regular 100 unit 27.997 14.712 In Sodium Chloride 0.9% 100 ml @ Per Protocol IV .Q0M FERNIE Rx#:[id number] Output: Chest Tube Drainage 485 300 70 Chest Tube Left Lateral 10 Chest Chest Tube Left Mid- 185 70 20 Clavicular Chest Chest Tube Mediastinal 300 230 40 Urine 685 795 Other: Voiding Method Indwelling Catheter Indwelling Catheter # Voids 0 ABP, PAP, CO, CI - Last Documented Arterial Blood Pressure 121/61 Pulmonary Artery Pressure 17/8 Cardiac Output 7.8 Cardiac Index 3.8 - Exam - Constitutional General appearance: Present: cooperative, no acute distress, obese - EENT Eyes: Present: PERRLA, poor dentition, normal appearance. Absent: scleral icterus ENT: Present: hearing grossly normal - Neck Details: Neck is supple, no lymphadenopathy, no JVD. - Respiratory Details: Lung sounds with few scattered expiratory wheezes throughout, diminished to his bilateral bases left greater than right. No rhonchi or crackles. Respirations are symmetrical and nonlabored. Oxygen saturation is 93% on room air. Achieving 750-1000 milliliters on his incentive spirometry. Mediastinal and left pleural chest tubes remain in place to low continuous wall suction -20 cm H2O. No no air leak is present to his mediastinal chest tubes although he has an intermittent air leak to his left pleural chest tube. Mediastinal chest tubes are draining thin serosanguineous drainage with 130 mL output in the last 8 hours and 530 mL output in the last 24 hours. Left pleural chest tube is draining thin serosanguineous drainage with 30 mL output in the last 8 hours and 255 mL output in the last 24 hours. - Cardiovascular Details: Regular rhythm and rate. S1 and S2 present, negative for S3, gallop or murmur. Sternum is stable. Bedside telemetry showing normal sinus rhythm heart rate 93. Atrial and ventricular epicardial pacemaker wires are intact and connected to t he bedside pacemaker generator with a VVI 50. Knee-high MICKY hose and sequential compression devices in place to his bilateral lower extremities. Heart hugger is in place and he is demonstrating appropriate use. No edema present. - Gastrointestinal Gastrointestinal Comment(s): Abdomen is soft, nontender and nondistended. Active bowel sounds present in all 4 abdominal quadrants. No guarding or rigidity. No organomegaly appreciated. Tolerating oral intake. Passing flatus. - Genitourinary Genitourinary Comment(s): Hawthorne catheter was discontinued this morning. Patient voiding clear daniel urine. - Integumentary Integumentary Comment(s): skin is warm and dry. No clubbing or cyanosis present. No rash or abnormal pigmentation is present. Midline sternal incision is clean, dry and approximated. No drainage or redness is present. Gauze dressing is clean, dry and intact. Left lower extremity EVH site is clean, dry and approximated. No drainage or redness is present. - Neurologic Neurologic: Present: CNII-XII intact - Musculoskeletal Musculoskeletal: Present: gait normal, generalized weakness, strength equal bilaterally - Psychiatric Psychiatric: Present: A&O x's 3, appropriate affect, intact judgment & insight - Labs CBC & Chem 7: 12/29/19 04:42 12/29/19 04:42 Labs: Abnormal Lab Results - Last 24 Hours (Table) 12/28/19 12/28/19 12/28/19 Range/Units 15:04 19:02 20:55 WBC (3.8-10.6) k/uL RBC (4.30-5.90) m/uL Hgb (13.0-17.5) gm/dL Hct (39.0-53.0) % Plt Count (150-450) k/uL Neutrophils # (1.3-7.7) k/uL Sodium (137-145) mmol/L BUN (9-20) mg/dL POC Glucose (mg/dL) 136 H 138 H 140 H (75-99) mg/dL Calcium (8.4-10.2) mg/dL AST (17-59) U/L Alkaline Phosphatase (38-126) U/L Total Protein (6.3-8.2) g/dL Albumin (3.5-5.0) g/dL 12/28/19 12/29/19 12/29/19 Range/Units 23:13 00:36 02:01 WBC (3.8-10.6) k/uL RBC (4.30-5.90) m/uL Hgb (13.0-17.5) gm/dL Hct (39.0-53.0) % Plt Count (150-450) k/uL Neutrophils # (1.3-7.7) k/uL Sodium (137-145) mmol/L BUN (9-20) mg/dL POC Glucose (mg/dL) 117 H 108 H 136 H (75-99) mg/dL Calcium (8.4-10.2) mg/dL AST (17-59) U/L Alkaline Phosphatase (38-126) U/L Total Protein (6.3-8.2) g/dL Albumin (3.5-5.0) g/dL 12/29/19 12/29/19 12/29/19 Range/Units 03:24 04:42 04:42 WBC 15.3 H (3.8-10.6) k/uL RBC 3.38 L (4.30-5.90) m/uL Hgb 10.5 L (13.0-17.5) gm/dL Hct 30.8 L (39.0-53.0) % Plt Count 110 L (150-450) k/uL Neutrophils # 11.6 H (1.3-7.7) k/uL Sodium 132 L (137-145) mmol/L BUN 21 H (9-20) mg/dL POC Glucose (mg/dL) 126 H (75-99) mg/dL Calcium 8.3 L (8.4-10.2) mg/dL AST 68 H (17-59) U/L Alkaline Phosphatase 32 L (38-126) U/L Total Protein 5.2 L (6.3-8.2) g/dL Albumin 3.3 L (3.5-5.0) g/dL 12/29/19 12/29/19 12/29/19 Range/Units 06:22 07:08 07:50 WBC (3.8-10.6) k/uL RBC (4.30-5.90) m/uL Hgb (13.0-17.5) gm/dL Hct (39.0-53.0) % Plt Count (150-450) k/uL Neutrophils # (1.3-7.7) k/uL Sodium (137-145) mmol/L BUN (9-20) mg/dL POC Glucose (mg/dL) 124 H 106 H 114 H (75-99) mg/dL Calcium (8.4-10.2) mg/dL AST (17-59) U/L Alkaline Phosphatase (38-126) U/L Total Protein (6.3-8.2) g/dL Albumin (3.5-5.0) g/dL 12/29/19 Range/Units 12:32 WBC (3.8-10.6) k/uL RBC (4.30-5.90) m/uL Hgb (13.0-17.5) gm/dL Hct (39.0-53.0) % Plt Count (150-450) k/uL Neutrophils # (1.3-7.7) k/uL Sodium (137-145) mmol/L BUN (9-20) mg/dL POC Glucose (mg/dL) 122 H (75-99) mg/dL Calcium (8.4-10.2) mg/dL AST (17-59) U/L Alkaline Phosphatase (38-126) U/L Total Protein (6.3-8.2) g/dL Albumin (3.5-5.0) g/dL Assessment and Plan Plan: 1 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 The patient underwent three-vessel bypass surgery. The patient is postop day #2. The patient is doing well. The patient's hemodynamically stable. 2 post thoracotomy, and the patient was extubated without any major difficulties. The mediastinal and left pleural chest tubes are still in place and a chest x-ray was noted without any acute abnormalities. 3 COPD with a component of COPD exacerbation, improved with bronchodilators and a dose of Solu-Medrol. The patient is using incentive spirometer. The patient has no active bronchospasm wheezing. Preoperatively her FEV1 is no other 46% of predicted. 4 hypertension 5 hyperlipidemia 6 peripheral vascular disease 7 tobacco marijuana smoking Plan Continue using incentive spirometer Continue albuterol neb last treatment [id number] Will possibly remove the mediastinal chest tubes and keep the left pleural chest tube in place Adequate pain control Stop the insulin drip and put the patient on a stye scale coverage Ambulate in the hallway Increased level of activity as tolerated Continue the combination of aspirin and Plavix and beta blockers and will increase the metoprolol to 25 mg by mouth twice a day We'll keep the patient ICU for 24 hours.
--- NOTE | 2019-12-29 14:29 | P.PN ---
Subjective Progress Note Date: 12/29/19 Principal diagnosis: CAD s/p CABG POD #2 Patient seen and examined at bedside. Patient was extubated on 12/27/19. Patient complains of mild post-surgical pain in the chest. Patient denies shortness of breath, fever, chills, nausea, or vomiting. One of the chest tubes was taken out today as well as the swanz catheter. Patient is a 59-year-old male with a history of hypertension, dyslipidemia, severe peripheral arterial disease, obesity, and chronic ongoing tobacco abuse who came in for coronary artery bypass surgery. On 12/26 he underwent triple-vessel coronary artery bypass grafting. Objective - Vital Signs Vital signs: Vital Signs Temp 99 F 12/29/19 12:00 Pulse 80 12/29/19 14:00 Resp 15 12/29/19 14:00 BP 99/60 12/29/19 14:00 Pulse Ox 93 L 12/29/19 14:00 Intake & Output 12/28/19 12/29/19 12/29/19 18:59 06:59 18:59 Intake Total 427.997 384.712 160 Output Total 1170 1095 1080 Balance -742.003 -710.288 -920 Weight 100.2 kg 99.8 kg Intake: IV 400 370 160 Lactated Ringers 1,000 ml 400 370 160 @ 20 mls/hr IV .Q24H FERNIE Rx#:[id number] Intake, IV Titration 27.997 14.712 Amount Insulin Regular 100 unit 27.997 14.712 In Sodium Chloride 0.9% 100 ml @ Per Protocol IV .Q0M FERNIE Rx#:[id number] Output: Chest Tube Drainage 485 300 100 Chest Tube Left Lateral 40 Chest Chest Tube Left Mid- 185 70 20 Clavicular Chest Chest Tube Mediastinal 300 230 40 Urine 685 795 980 Other: Voiding Method Indwelling Catheter Indwelling Catheter # Voids 0 ABP, PAP, CO, CI - Last Documented Arterial Blood Pressure 121/61 Pulmonary Artery Pressure 17/8 Cardiac Output 7.8 Cardiac Index 3.8 - Exam General: [non toxic], [no distress], [appears at stated age] Derm: [warm], [dry] Head: [atraumatic], [normocephalic], [symmetric] Eyes: [EOMI], [no lid lag], [anicteric sclera] Mouth: [no lip lesion], [mucus membranes moist] Cardiovascular: [S1S2 reg], [no murmur], [positive posterior tibial pulse bilateral], Lungs: [CTAB], [no rhonchi, no rales] , [no accessory muscle use] Abdominal: [soft], [ nontender to palpation], [no guarding], [no appreciable organomegaly] Ext: [no gross muscle atrophy], [no edema], [no contractures] Neuro: [ CN II-XI grossly intact], [no focal neuro deficits] Psych: [Alert], [oriented], [appropriate affect.] - Labs CBC & Chem 7: 12/29/19 04:42 12/29/19 04:42 Labs: Abnormal Lab Results - Last 24 Hours (Table) 12/28/19 12/28/19 12/28/19 Range/Units 15:04 19:02 20:55 WBC (3.8-10.6) k/uL RBC (4.30-5.90) m/uL Hgb (13.0-17.5) gm/dL Hct (39.0-53.0) % Plt Count (150-450) k/uL Neutrophils # (1.3-7.7) k/uL Sodium (137-145) mmol/L BUN (9-20) mg/dL POC Glucose (mg/dL) 136 H 138 H 140 H (75-99) mg/dL Calcium (8.4-10.2) mg/dL AST (17-59) U/L Alkaline Phosphatase (38-126) U/L Total Protein (6.3-8.2) g/dL Albumin (3.5-5.0) g/dL 12/28/19 12/29/19 12/29/19 Range/Units 23:13 00:36 02:01 WBC (3.8-10.6) k/uL RBC (4.30-5.90) m/uL Hgb (13.0-17.5) gm/dL Hct (39.0-53.0) % Plt Count (150-450) k/uL Neutrophils # (1.3-7.7) k/uL Sodium (137-145) mmol/L BUN (9-20) mg/dL POC Glucose (mg/dL) 117 H 108 H 136 H (75-99) mg/dL Calcium (8.4-10.2) mg/dL AST (17-59) U/L Alkaline Phosphatase (38-126) U/L Total Protein (6.3-8.2) g/dL Albumin (3.5-5.0) g/dL 12/29/19 12/29/19 12/29/19 Range/Units 03:24 04:42 04:42 WBC 15.3 H (3.8-10.6) k/uL RBC 3.38 L (4.30-5.90) m/uL Hgb 10.5 L (13.0-17.5) gm/dL Hct 30.8 L (39.0-53.0) % Plt Count 110 L (150-450) k/uL Neutrophils # 11.6 H (1.3-7.7) k/uL Sodium 132 L (137-145) mmol/L BUN 21 H (9-20) mg/dL POC Glucose (mg/dL) 126 H (75-99) mg/dL Calcium 8.3 L (8.4-10.2) mg/dL AST 68 H (17-59) U/L Alkaline Phosphatase 32 L (38-126) U/L Total Protein 5.2 L (6.3-8.2) g/dL Albumin 3.3 L (3.5-5.0) g/dL 12/29/19 12/29/19 12/29/19 Range/Units 06:22 07:08 07:50 WBC (3.8-10.6) k/uL RBC (4.30-5.90) m/uL Hgb (13.0-17.5) gm/dL Hct (39.0-53.0) % Plt Count (150-450) k/uL Neutrophils # (1.3-7.7) k/uL Sodium (137-145) mmol/L BUN (9-20) mg/dL POC Glucose (mg/dL) 124 H 106 H 114 H (75-99) mg/dL Calcium (8.4-10.2) mg/dL AST (17-59) U/L Alkaline Phosphatase (38-126) U/L Total Protein (6.3-8.2) g/dL Albumin (3.5-5.0) g/dL 12/29/19 Range/Units 12:32 WBC (3.8-10.6) k/uL RBC (4.30-5.90) m/uL Hgb (13.0-17.5) gm/dL Hct (39.0-53.0) % Plt Count (150-450) k/uL Neutrophils # (1.3-7.7) k/uL Sodium (137-145) mmol/L BUN (9-20) mg/dL POC Glucose (mg/dL) 122 H (75-99) mg/dL Calcium (8.4-10.2) mg/dL AST (17-59) U/L Alkaline Phosphatase (38-126) U/L Total Protein (6.3-8.2) g/dL Albumin (3.5-5.0) g/dL Assessment and Plan Assessment: Tripple vessel coronary disease - s/p CABG POD #2 - management per cardiothorasic surgery Acute blood loss anemia and thrombocytopenia - anticipated acute blood loss anemia monitor cbc HTN - controlled - follow BP - resume medications per CV surgery HLD - resume statin when okay per CV surgery Hyperglycemia -monitor blood sugars COPD with a component of exacerbation - pulm recs - bronchodilators Peripheral vascular disease Tobacco abuse - cesation advised AM labs Time with Patient: Greater than 30
--- NOTE | 2019-12-29 15:36 | PN ---
PROGRESS NOTE Mr. Garcia is status post bypass surgery, recovering nicely. He is in sinus rhythm, hemodynamically stable. No JVD. S1-S2 heard normally. Lungs reveal improved air entry. Abdomen and lower extremity exam unchanged. Plan is to continue incentive spirometer, pulmonary toilet, continue current medications and hopefully move him to telemetry. MMODL / IJN: [id number] /
[2019-12-29 16:56] LABS: Glucose,Whole Blood 107 mg/dL (75-99)
[2019-12-29] MEDS: BUDESONIDE 0.5 MG/2 ML NEBU INHALATION SCH (19:23)
[2019-12-29] MEDS: SENNOSIDES-DOCUSATE SODIUM 1 EACH TAB PO SCH (20:50)
[2019-12-29 20:54] LABS: Glucose,Whole Blood 156 mg/dL (75-99)
[2019-12-30] MEDS: HYDROcodone/APAP 5-325MG 1 EACH TAB PO PRN (05:25)
[2019-12-30 05:31] LABS: Basophils % (A) 0 %; Eosinophils # (A) 0.4 k/uL (0-0.7); Eosinophils % (A) 2 %; HCT 32.3 % (39.0-53.0); HGB 10.9 gm/dL (13.0-17.5); Lymphocytes # (A) 2.9 k/uL (1.0-4.8); Lymphocytes % (A) 20 %; MCH 30.5 pg (25.0-35.0); MCHC 33.9 g/dL (31.0-37.0); MCV 90.2 fL (80.0-100.0); Mean Platelet Volume 9.1; Monocytes # (A) 0.8 k/uL (0-1.0); Monocytes % (A) 6 %; Neutrophils # (A) 10.5 k/uL (1.3-7.7); Neutrophils % (A) 71 %; Platelet Count 129 k/uL (150-450); RBC 3.58 m/uL (4.30-5.90); RDW 13.1 % (11.5-15.5); WBC 14.9 k/uL (3.8-10.6)
[2019-12-30 05:43] LABS: ALT 19 U/L (4-49); AST 54 U/L (17-59); African American GFR (CKD) >90 (>60 ml/min/1.73 sqM); Albumin 3.5 g/dL (3.5-5.0); Alkaline Phosphatase 42 U/L (38-126); Anion Gap 6 mmol/L; Blood Urea Nitrogen 20 mg/dL (9-20); Calcium 8.5 mg/dL (8.4-10.2); Carbon Dioxide 27 mmol/L (22-30); Chloride 96 mmol/L (98-107); Glucose 103 mg/dL (74-99); Non-African American GFR(CKD) >90 (>60 ml/min/1.73 sqM); Potassium 4.4 mmol/L (3.5-5.1); Sodium 129 mmol/L (137-145); Total Bilirubin 0.8 mg/dL (0.2-1.3); Total Protein 5.7 g/dL (6.3-8.2)
--- NOTE | 2019-12-30 06:47 | XR ---
EXAMINATION TYPE: XR chest 1V portable DATE OF EXAM: 12/30/2019 HISTORY: Post op CABG. REFERENCE: Previous study dated 12/29/2019. FINDINGS: There has been a midline sternotomy. Heart is mildly enlarged. There is elevation of the le ft hemidiaphragm. There is atelectatic change present at both lung bases. I suspect small, bilateral effusions. IMPRESSION: CONTINUING POSTOPERATIVE CHANGE.
[2019-12-30] MEDS: PANTOPRAZOLE 40 MG TABLET PO SCH (06:51)
[2019-12-30 06:56] LABS: Glucose,Whole Blood 117 mg/dL (75-99)
[2019-12-30] MEDS: INSULIN ASPART (NovoLOG) 100 UNIT/ML VIAL SQ SCH ×4 (06:58→21:53)
[2019-12-30] MEDS: KETOROLAC 30 MG/ML 1 ML VIAL IVP SCH ×4 (07:01→23:29)
[2019-12-30] MEDS: IPRATROPIUM-ALBUTEROL 3 ML NEB INHALATION SCH ×4 (07:08→19:08)
[2019-12-30] MEDS: BUDESONIDE 0.5 MG/2 ML NEBU INHALATION SCH ×2 (07:08→19:08)
--- NOTE | 2019-12-30 08:21 | P.PN ---
Subjective Progress Note Date: 12/30/19 Principal diagnosis: Coronary artery disease with left main disease. Past medical history significant for hypertension, dyslipidemia, severe peripheral vascular disease, obesity, COPD with a preoperative FEV1 46% of predicted value, daily marijuana use and chronic ongoing tobacco dependence. POD #3 coronary artery bypass grafting 3 vessels with placement of the left internal mammary artery to left anterior descending coronary artery, a reverse greater saphenous vein graft to the diagonal coronary artery, a reverse greater saphenous vein graft to the obtuse marginal coronary artery. Endoscopic harvesting of the left greater saphenous vein. Epi-aortic ultrasound. Ligation of the left atrial appendage using a 40 mm Atriclip. Intraoperative transesophageal echocardiogram. Postoperative acute blood loss anemia, an expected outcome given cardiopulmonary bypass and hemodilution. The patient is seen in follow-up at his bedside in the intensive care unit on 12/30/2019. Currently he is sitting up to the bedside chair, tolerating his breakfast, is awake, alert and oriented 3 and is in no acute apparent distress. Denies any complaints of shortness of breath and remains complaining of some intermittent pain with deep breathing and coughing to his left pleural chest tube insertion site. Oxygen saturation are 93% on room air and he is achieving 750 mL on his incentive spirometry with encouragement. He reports that he is still coughing with minimal thin sputum production today. Atrial and ventricular epicardial pacemaker wires remain in place and grounded. Bedside telemetry showing normal sinus rhythm heart rate 83 BPM. Left pleural chest tube remains in place to water seal. No air leak is present. 30 mL output in the last 8 hours of thin serosanguineous drainage and 130 mL output in the last 24 hours. The patient has been ambulating in the intensive care unit hallway with minimal assistance from nursing staff. Objective - Vital Signs Vital signs: Vital Signs Temp 98.3 F 12/30/19 05:00 Pulse 84 12/30/19 07:00 Resp 17 12/30/19 07:00 BP 109/72 12/30/19 07:00 Pulse Ox 94 L 12/30/19 07:00 Intake & Output 12/29/19 12/30/19 12/30/19 18:59 06:59 18:59 Intake Total 240 240 20 Output Total 1710 1360 0 Balance -1470 -1120 20 Intake: IV 240 240 20 Lactated Ringers 1,000 ml 240 240 20 @ 20 mls/hr IV .Q24H [facility] Rx#:[id number] Output: Chest Tube Drainage 160 50 0 Chest Tube Left Lateral 100 50 0 Chest Chest Tube Left Mid- 20 Clavicular Chest Chest Tube Mediastinal 40 Urine 1550 1310 0 Other: Voiding Method Urinal # Voids 0 ABP, PAP, CO, CI - Last Documented Arterial Blood Pressure 121/61 Pulmonary Artery Pressure 17/8 Cardiac Output 7.8 Cardiac Index 3.8 - Constitutional General appearance: Present: cooperative, no acute distress, obese - EENT Eyes: Present: PERRLA, poor dentition, normal appearance. Absent: scleral icterus ENT: Present: hearing grossly normal - Neck Details: Neck is supple, no JVD, no lymphadenopathy. - Respiratory Details: Lung sounds with few expiratory wheezes and crackles to his bilateral bases. No rhonchi. Respirations are symmetrical and nonlabored. Oxygen saturation is 93% on room air. Achieving 750 mL on his incentive spirometry with encouragement. - Cardiovascular Details: Regular rhythm and rate. S1 and S2 present, negative for S3, gallop or murmur. Sternum is stable. Knee-high MICKY hose and sequential compression devices in place to his bilateral lower extremities. Heart hugger is in place and he is demonstrating appropriate use. Atrial and ventricular epicardial pacemaker wires in place and grounded. No edema present. Bedside telemetry showing normal sinus rhythm heart rate 83 BPM. - Gastrointestinal Gastrointestinal Comment(s): Abdomen is soft, nontender and nondistended. Active bowel sounds present in all 4 abdominal quadrants. No guarding or rigidity. No organomegaly appreciated. Tolerating oral intake. - Genitourinary Genitourinary Comment(s): Voiding clear yellow urine. - Integumentary Integumentary Comment(s): Skin is warm and dry. No clubbing or cyanosis is present. Midline sternal incision is clean, dry and approximated. No drainage or redness is present. Gauze dressing is clean, dry and intact. Left lower extremity EVH site is clean, dry and approximated. No drainage or redness is present. - Neurologic Neurologic: Present: CNII-XII intact - Musculoskeletal Musculoskeletal: Present: gait normal, generalized weakness, strength equal bilaterally - Psychiatric Psychiatric: Present: A&O x's 3, appropriate affect, intact judgment & insight - Allied health notes Allied health notes reviewed: nursing - Labs CBC & Chem 7: 12/30/19 05:07 12/30/19 05:07 Labs: Abnormal Lab Results - Last 24 Hours (Table) 12/29/19 12/29/19 12/29/19 Range/Units 12:32 16:54 20:53 WBC (3.8-10.6) k/uL RBC (4.30-5.90) m/uL Hgb (13.0-17.5) gm/dL Hct (39.0-53.0) % Plt Count (150-450) k/uL Neutrophils # (1.3-7.7) k/uL Sodium (137-145) mmol/L Chloride (98-107) mmol/L Glucose (74-99) mg/dL POC Glucose (mg/dL) 122 H 107 H 156 H (75-99) mg/dL Total Protein (6.3-8.2) g/dL 12/30/19 12/30/19 12/30/19 Range/Units 05:07 05:07 06:55 WBC 14.9 H (3.8-10.6) k/uL RBC 3.58 L (4.30-5.90) m/uL Hgb 10.9 L (13.0-17.5) gm/dL Hct 32.3 L (39.0-53.0) % Plt Count 129 L (150-450) k/uL Neutrophils # 10.5 H (1.3-7.7) k/uL Sodium 129 L (137-145) mmol/L Chloride 96 L (98-107) mmol/L Glucose 103 H (74-99) mg/dL POC Glucose (mg/dL) 117 H (75-99) mg/dL Total Protein 5.7 L (6.3-8.2) g/dL - Imaging and Cardiology Chest x-ray: report reviewed, image reviewed Assessment and Plan Assessment: 1. Coronary artery disease with left main disease, status post three-vessel coronary artery bypass grafting surgery 2. Hypertension 3. Dyslipidemia 4. Peripheral vascular disease 5. Daily marijuana use 6. COPD with a preoperative FEV1 of 46% of predicted value 7. Chronic ongoing tobacco dependence 8. Postoperative acute blood loss anemia Plan: 1. Continue aspirin, statin, Plavix, and beta magen. Will increase metoprolol tartrate as tolerated. 2. Remove left pleural chest tube. 3. Encourage incentive spirometry use 10 times every hour while awake. Bronchodilators per pulmonology/critical care management. 4. Continue to encourage smoking cessation. Discussed the importance of smoking cessation with the patient. 5. Increase activity as tolerated. Up in chair for all meals, ambulate when able. PT/OT/cardiac rehab consulted. 6. Will monitor daily labs and chest x-rays. Electrolyte replacement per protocol. 7. Pain control with current medication regimen. 8. GI/DVT prophylaxis. 9. Insulin management per primary care service. 10. May transfer to 3 S cardiac stepdown unit when bed available. 11. More recommendations to follow based on patient's clinical course. Time with Patient: Greater than 30
[2019-12-30] MEDS ORDERED: ALBUMIN HUMAN 5% 250 ML IVPB ONE (08:27)
[2019-12-30] MEDS: ATORVASTATIN 40 MG TAB PO SCH (08:37)
[2019-12-30] MEDS: FOLIC ACID 1 MG TAB PO SCH (08:37)
[2019-12-30] MEDS: ASPIRIN 325 MG TAB PO SCH (08:37)
[2019-12-30] MEDS: guaiFENesin 600 MG TABLET.ER PO SCH ×2 (08:37→21:50)
[2019-12-30] MEDS: THIAMINE 100 MG TAB PO SCH (08:38)
[2019-12-30] MEDS: HEPARIN SODIUM,PORCINE 5,000 UNIT/ML 1 ML VIAL SQ SCH ×3 (08:38→23:30)
[2019-12-30] MEDS ORDERED: ACETAMINOPHEN TAB 500 MG TAB PO PRN ×2 (09:47→10:15)
[2019-12-30] MEDS: METOPROLOL TARTRATE 25 MG TAB PO SCH ×3 (10:01→21:50)
--- NOTE | 2019-12-30 10:13 | P.PN ---
Subjective Progress Note Date: 12/30/19 Patient is doing fairly well today. He was up in the chair when I saw him. He does not have any concerns or complaints. No acute events overnight reported by nursing staff. Objective - Vital Signs Vital signs: Vital Signs Temp 98.8 F 12/30/19 08:00 Pulse 86 12/30/19 09:00 Resp 19 12/30/19 09:00 BP 99/63 12/30/19 09:00 Pulse Ox 94 L 12/30/19 09:00 Intake & Output 12/29/19 12/30/19 12/30/19 18:59 06:59 18:59 Intake Total 240 240 20 Output Total 1710 1360 0 Balance -1470 -1120 20 Weight 99.1 kg Intake: IV 240 240 20 Lactated Ringers 1,000 ml 240 240 20 @ 20 mls/hr IV .Q24H [facility] Rx#:[id number] Output: Chest Tube Drainage 160 50 0 Chest Tube Left Lateral 100 50 0 Chest Chest Tube Left Mid- 20 Clavicular Chest Chest Tube Mediastinal 40 Urine 1550 1310 0 Other: Voiding Method Urinal Urinal # Voids 0 ABP, PAP, CO, CI - Last Documented Arterial Blood Pressure 121/61 Pulmonary Artery Pressure 17/8 Cardiac Output 7.8 Cardiac Index 3.8 - Exam General: The patient is awake and alert, in no distress Eye: there is normal conjunctiva bilaterally. Neck: The neck is supple, there is no JVD. Cardiovascular: Normal S1-S2, no S3-S4, no murmurs. Respiratory: Lungs clear to auscultation bilaterally Gastrointestinal: Abdomen is soft, nontender Musculoskeletal: There is no pedal edema. Neurological:. Speech is normal. Skin: Skin is warm and dry - Labs CBC & Chem 7: 12/30/19 05:07 12/30/19 05:07 Labs: Abnormal Lab Results - Last 24 Hours (Table) 12/29/19 12/29/19 12/29/19 Range/Units 12:32 16:54 20:53 WBC (3.8-10.6) k/uL RBC (4.30-5.90) m/uL Hgb (13.0-17.5) gm/dL Hct (39.0-53.0) % Plt Count (150-450) k/uL Neutrophils # (1.3-7.7) k/uL Sodium (137-145) mmol/L Chloride (98-107) mmol/L Glucose (74-99) mg/dL POC Glucose (mg/dL) 122 H 107 H 156 H (75-99) mg/dL Total Protein (6.3-8.2) g/dL 12/30/19 12/30/19 12/30/19 Range/Units 05:07 05:07 06:55 WBC 14.9 H (3.8-10.6) k/uL RBC 3.58 L (4.30-5.90) m/uL Hgb 10.9 L (13.0-17.5) gm/dL Hct 32.3 L (39.0-53.0) % Plt Count 129 L (150-450) k/uL Neutrophils # 10.5 H (1.3-7.7) k/uL Sodium 129 L (137-145) mmol/L Chloride 96 L (98-107) mmol/L Glucose 103 H (74-99) mg/dL POC Glucose (mg/dL) 117 H (75-99) mg/dL Total Protein 5.7 L (6.3-8.2) g/dL Assessment and Plan Assessment: Tripple vessel coronary disease - s/p CABG POD #3 - management per cardiothorasic surgery Acute blood loss anemia and thrombocytopenia - anticipated acute blood loss anemia monitor cbc HTN - controlled - follow BP - resume medications per CV surgery HLD - resume statin when okay per CV surgery Hyperglycemia -monitor blood sugars COPD with a component of exacerbation - pulm recs - bronchodilators Peripheral vascular disease Tobacco abuse - cesation advised AM labs
[2019-12-30 11:56] LABS: Glucose,Whole Blood 169 mg/dL (75-99)
--- NOTE | 2019-12-30 12:18 | P.PN ---
Subjective Progress Note Date: 12/30/19 On 12/30/2019, the patient is postop day #3. Doing well. Using incentive spirometer. All of the tubes have been removed. The chest x-ray from today shows some atelectatic changes in lung bases which is expected post surgery. The patient has no specific complaints. Chest wall pain is under good control. Cardiac rhythm is sinus. The blood pressure was slightly low earlier and the patient was given a total of 2 50 mL of albumin 5%. Lopressor dose was also decreased. No significant bronchospasm or wheezing. The patient is a chronic smoker and has COPD. Objective - Vital Signs Vital signs: Vital Signs Temp 98.8 F 12/30/19 08:00 Pulse 86 12/30/19 09:00 Resp 19 12/30/19 09:00 BP 99/63 12/30/19 09:00 Pulse Ox 94 L 12/30/19 09:00 Intake & Output 12/29/19 12/30/19 12/30/19 18:59 06:59 18:59 Intake Total 240 240 20 Output Total 1710 1360 490 Balance -1470 -1120 -470 Weight 99.1 kg Intake: IV 240 240 20 Lactated Ringers 1,000 ml 240 240 20 @ 20 mls/hr IV .Q24H [facility] Rx#:[id number] Output: Chest Tube Drainage 160 50 0 Chest Tube Left Lateral 100 50 0 Chest Chest Tube Left Mid- 20 Clavicular Chest Chest Tube Mediastinal 40 Urine 1550 1310 490 Other: Voiding Method Urinal Urinal # Voids 0 ABP, PAP, CO, CI - Last Documented Arterial Blood Pressure 121/61 Pulmonary Artery Pressure 17/8 Cardiac Output 7.8 Cardiac Index 3.8 - Exam - Constitutional General appearance: Present: cooperative, no acute distress, obese - EENT Eyes: Present: PERRLA, poor dentition, normal appearance. Absent: scleral icterus ENT: Present: hearing grossly normal - Neck Details: Neck is supple, no JVD, no lymphadenopathy. - Respiratory Details: Lung sounds with few expiratory wheezes and crackles to his bilateral bases. No rhonchi. Respirations are symmetrical and nonlabored. Oxygen saturation is 93% on room air. Achieving 750 mL on his incentive spirometry with encouragement. - Cardiovascular Details: Regular rhythm and rate. S1 and S2 present, negative for S3, gallop or murmur. Sternum is stable. Knee-high MICKY hose and sequential compression devices in place to his bilateral lower extremities. Heart hugger is in place and he is demonstrating appropriate use. Atrial and ventricular epicardial pacemaker wires in place and grounded. No edema present. Bedside telemetry showing normal sinus rhythm heart rate 83 BPM. - Gastrointestinal Gastrointestinal Comment(s): Abdomen is soft, nontender and nondistended. Active bowel sounds present in all 4 abdominal quadrants. No guarding or rigidity. No organomegaly appreciated. Tolerating oral intake. - Genitourinary Genitourinary Comment(s): Voiding clear yellow urine. - Integumentary Integumentary Comment(s): Skin is warm and dry. No clubbing or cyanosis is present. Midline sternal incision is clean, dry and approximated. No drainage or redness is present. Gauze dressing is clean, dry and intact. Left lower extremity EVH site is clean, dry and approximated. No drainage or redness is present. - Neurologic Neurologic: Present: CNII-XII intact - Musculoskeletal Musculoskeletal: Present: gait normal, generalized weakness, strength equal bilaterally - Psychiatric Psychiatric: Present: A&O x's 3, appropriate affect, intact judgment & insight - Labs CBC & Chem 7: 12/30/19 05:07 12/30/19 05:07 Labs: Abnormal Lab Results - Last 24 Hours (Table) 12/29/19 12/29/19 12/29/19 Range/Units 12:32 16:54 20:53 WBC (3.8-10.6) k/uL RBC (4.30-5.90) m/uL Hgb (13.0-17.5) gm/dL Hct (39.0-53.0) % Plt Count (150-450) k/uL Neutrophils # (1.3-7.7) k/uL Sodium (137-145) mmol/L Chloride (98-107) mmol/L Glucose (74-99) mg/dL POC Glucose (mg/dL) 122 H 107 H 156 H (75-99) mg/dL Total Protein (6.3-8.2) g/dL 12/30/19 12/30/19 12/30/19 Range/Units 05:07 05:07 06:55 WBC 14.9 H (3.8-10.6) k/uL RBC 3.58 L (4.30-5.90) m/uL Hgb 10.9 L (13.0-17.5) gm/dL Hct 32.3 L (39.0-53.0) % Plt Count 129 L (150-450) k/uL Neutrophils # 10.5 H (1.3-7.7) k/uL Sodium 129 L (137-145) mmol/L Chloride 96 L (98-107) mmol/L Glucose 103 H (74-99) mg/dL POC Glucose (mg/dL) 117 H (75-99) mg/dL Total Protein 5.7 L (6.3-8.2) g/dL 12/30/19 Range/Units 11:55 WBC (3.8-10.6) k/uL RBC (4.30-5.90) m/uL Hgb (13.0-17.5) gm/dL Hct (39.0-53.0) % Plt Count (150-450) k/uL Neutrophils # (1.3-7.7) k/uL Sodium (137-145) mmol/L Chloride (98-107) mmol/L Glucose (74-99) mg/dL POC Glucose (mg/dL) 169 H (75-99) mg/dL Total Protein (6.3-8.2) g/dL Assessment and Plan Plan: 1 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 The patient underwent three-vessel bypass surgery. The patient is postop day #3. The patient is doing well. The patient's hemodynamically stable. 2 post thoracotomy, and the patient was extubated without any major difficulties. The chest tubes are all removed and the patient is doing well using incentive spirometer. 3 COPD Preoperatively her FEV1 is no other 46% of predicted. 4 hypertension 5 hyperlipidemia 6 peripheral vascular disease 7 tobacco marijuana smoking Plan Continue using incentive spirometer Continue albuterol neb last treatment [id number] Given IV albumin and the metoprolol dose has been adjusted. Continue using incentive spirometer. Adequate pain control Ambulate in the hallway Increased level of activity as tolerated Continue the combination of aspirin and Plavix and beta blockers and will increase the metoprolol to 25 mg by mouth 3 times a day We'll transfer this patient out to a medical floor. He will go to the cardiac floor with telemetry monitoring.
--- NOTE | 2019-12-30 13:14 | PN ---
PROGRESS NOTE Mr. Garcia is in sinus rhythm status post bypass surgery. He is doing much better today. His blood pressure was somewhat low. I am suggesting that we change the Lopressor from 50 b.i.d. to 25 mg t.i.d. PHYSICAL EXAMINATION: Vitals are stable. JVD is not evident. S1-S2 heard normally. Lungs reveal improved air entry. Abdomen and lower extremity exam unchanged. PLAN: Plan is to continue all his other medications as before. He may hopefully be discharged in the next 24 to 48 hours. MMODL / IJN: [id number] /
[2019-12-30] MEDS: IPRATROPIUM-ALBUTEROL 3 ML NEB INHALATION PRN (17:12)
[2019-12-30 17:22] LABS: Glucose,Whole Blood 128 mg/dL (75-99)
[2019-12-30 21:49] LABS: Glucose,Whole Blood 129 mg/dL (75-99)
[2019-12-30] MEDS: SENNOSIDES-DOCUSATE SODIUM 1 EACH TAB PO SCH (21:50)
[2019-12-31 06:27] LABS: Glucose,Whole Blood 90 mg/dL (75-99)
[2019-12-31 06:34] LABS: Basophils # (A) 0.1 k/uL (0-0.2); Basophils % (A) 1 %; Eosinophils # (A) 0.6 k/uL (0-0.7); Eosinophils % (A) 5 %; HCT 30.8 % (39.0-53.0); HGB 10.6 gm/dL (13.0-17.5); Lymphocytes # (A) 2.6 k/uL (1.0-4.8); Lymphocytes % (A) 22 %; MCH 31.1 pg (25.0-35.0); MCHC 34.4 g/dL (31.0-37.0); MCV 90.4 fL (80.0-100.0); Mean Platelet Volume 10.2; Monocytes # (A) 0.9 k/uL (0-1.0); Monocytes % (A) 7 %; Neutrophils # (A) 7.5 k/uL (1.3-7.7); Neutrophils % (A) 64 %; Platelet Count 145 k/uL (150-450); RBC 3.41 m/uL (4.30-5.90); RDW 13.2 % (11.5-15.5); WBC 11.9 k/uL (3.8-10.6)
[2019-12-31 06:37] LABS: African American GFR (CKD) >90 (>60 ml/min/1.73 sqM); Anion Gap 6 mmol/L; Blood Urea Nitrogen 20 mg/dL (9-20); Calcium 8.3 mg/dL (8.4-10.2); Carbon Dioxide 26 mmol/L (22-30); Chloride 101 mmol/L (98-107); Non-African American GFR(CKD) >90 (>60 ml/min/1.73 sqM); Sodium 133 mmol/L (137-145)
[2019-12-31 06:38] LABS: Glucose 90 mg/dL (74-99); Potassium 5.6 mmol/L (3.5-5.1)
[2019-12-31] MEDS: KETOROLAC 30 MG/ML 1 ML VIAL IVP SCH ×3 (06:54→13:20)
[2019-12-31] MEDS: PANTOPRAZOLE 40 MG TABLET PO SCH (06:54)
[2019-12-31] MEDS: guaiFENesin 600 MG TABLET.ER PO SCH (07:54)
[2019-12-31] MEDS: ATORVASTATIN 40 MG TAB PO SCH (07:54)
[2019-12-31] MEDS: METOPROLOL TARTRATE 25 MG TAB PO SCH ×2 (07:54→13:19)
[2019-12-31] MEDS: THIAMINE 100 MG TAB PO SCH (07:54)
[2019-12-31] MEDS: FOLIC ACID 1 MG TAB PO SCH (07:55)
[2019-12-31] MEDS: ASPIRIN 325 MG TAB PO SCH (07:55)
[2019-12-31] MEDS: HEPARIN SODIUM,PORCINE 5,000 UNIT/ML 1 ML VIAL SQ SCH ×2 (07:55→13:19)
[2019-12-31] MEDS ORDERED: FUROSEMIDE 20 MG TAB PO STA (08:13)
[2019-12-31] MEDS: BUDESONIDE 0.5 MG/2 ML NEBU INHALATION SCH (08:19)
[2019-12-31] MEDS: IPRATROPIUM-ALBUTEROL 3 ML NEB INHALATION SCH ×2 (08:19→11:43)
--- NOTE | 2019-12-31 09:39 | FL ---
Sniff test,2 view chest x-ray HISTORY: Hemidiaphragm paralysis on the left, post chest tube removal Correlation to chest x-ray 12/30/2019 43 seconds fluoroscopy time. No images obtained for sniff test. Chest x-ray submitted on 2 images. There is paradoxical motion of the left hemidiaphragm noted. No descent of the left hemidiaphragm on inspiration as on the right. Chest x-ray shows patchy subsegmental basilar atelectatic changes. Patie nt is post median sternotomy and atrial appendage clipping placement. Left chest tube has been remove d. No evident pneumothorax. 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 Postop changes. Left lower lobe atelectasis.
[2019-12-31 10:15] VITALS: BP 113/69; PULSE 83; RESP 19; TEMP 97.7
--- NOTE | 2019-12-31 10:57 | P.DS ---
Providers Date of admission: 12/27/19 06:59 Expected date of discharge: 12/31/19 Attending physician: Trenton Miguel Consults: 12/27/19 15:01 Consult Physician Routine Consulting Provider: Danya Domingo Consult Reason/Comments: Chief Dispatcher Service Consult: post cardiac surgery Do you want consulting provider notified?: Yes Consult Physician Routine Consulting Provider: Tala Martinez Consult Reason/Comments: med mgmt; pt with no PCP Do you want consulting provider notified?: Yes Consult Physician Routine Consulting Provider: Ramona Koch Consult Reason/Comments: Purchasing Contracting Clerk Consult: post cardiac surgery Do you want consulting provider notified?: Yes Primary care physician: Stated None Hospital Course: FINAL DIAGNOSIS: 1. Coronary artery disease with left main disease, status post three-vessel coronary artery bypass grafting surgery 2. Hypertension 3. Dyslipidemia 4. Peripheral vascular disease 5. Daily marijuana use 6. COPD with a preoperative FEV1 of 46% of predicted value 7. Chronic ongoing tobacco dependence 8. Postoperative acute blood loss anemia 9. Postoperative elevation of the left hemidiaphragm PRINCIPAL PROCEDURE: 1. Coronary artery bypass grafting 3 vessels with placement of the left internal mammary artery to left anterior descending coronary artery, a reverse greater saphenous vein graft to the diagonal coronary artery, a reverse greater saphenous vein graft to the obtuse marginal coronary artery. 2. Endoscopic harvesting of the left greater saphenous vein. 3. Epi-aortic ultrasound 4. Ligation of the left atrial appendage using a 40 mm Atriclip. 5. Intraoperative transesophageal echocardiogram. HISTORY OF PRESENT ILLNESS: This is a 59-year-old gentleman who does not follow with a primary care physician on a regular outpatient basis. He has a past medical history significant for hypertension, dyslipidemia, peripheral vascular disease, COPD with a preoperative FEV1 of 46% of predicted value, chronic ongoing tobacco dependence and daily marijuana use. The patient has a known history of coronary artery disease and underwent a cardiac catheterization in February 2019 at [facility]. The heart catheterization completed at [facility] showed significant coronary artery disease with left main disease and was advised to undergo myocardial revascularization surgery. The patient decided to seek a second opinion and refused myocardial revascularization surgery at that time in February 2019. Recently, the patient continued to have symptoms of chest pain with activity which was associated with shortness of breath. He obtained a second opinion from Dr. Bran from [facility] and subsequently underwent a repeat left heart cardiac catheterization on 12/12/2019 which demonstrated an 80% stenosis to his distal left main coronary artery, an 80% stenosis to his ostial left anterior desc ending coronary artery, an 80% stenosis to a second diagonal coronary artery, a 40% stenosis to his mid left anterior descending coronary artery and a 45% stenosis to his right coronary artery. Due to the findings on the cardiac catheterization films, the patient's recent symptoms and history of coronary artery disease consult was placed Dr. Trenton Miguel from cardiothoracic surgery for further evaluation and treatment recommendations including myocardial revascularization surgery. Dr. Miguel met with the patient and his , discussed treatment options including myocardial revascularization surgery. Risks and benefits of myocardial revascularization surgery were discussed with the patient including the STS risk or and knowing the risks the patient wished to proceed with coronary artery bypass grafting surgery. HOSPITAL COURSE: The patient was brought to the preoperative area on 12/27/2019, prepared in the usual fashion and subsequently taken to the ope rating room where Dr. Trenton Miguel performed a coronary artery bypass grafting 3 vessels with placement of the left internal mammary artery to left anterior descending coronary artery, a reverse greater saphenous vein graft to the diagonal coronary artery, a reverse greater saphenous vein graft to the obtuse marginal coronary artery. Endoscopic harvesting of the left greater saphenous vein, epi-aortic ultrasound, ligation of the left atrial appendage using a 40 mm Atriclip and an intraoperative transesophageal echocardiogram. Upon completion of the surgery the patient was transferred to the cardiovascular intensive care unit where he was recovered, monitored hemodynamically and where he progressed cardiac rehabilitation phase 1. He was extubated, all lines, tubes and supportive drips were discontinued when appropriate and transfer orders were placed to the third floor cardiac stepdown unit. His oxygen was titrated down, he continued to work with physical and occupational therapy, he was tolerating an oral diet, his pain was well-controlled and he was ready to be discharged home with home health care on postoperative day #4. He has received written and verbal instructions regarding his medications, activity restrictions, signs and symptoms requiring physician notification and his follow-up appointments. COMPLICATIONS: His postoperative recovery was complicated by findings consistent with paralysis of the left hemidiaphragm which will be followed on an outpatient basis. CONSULTATIONS: 1. Dr. Kishor Bran for cardiology management. 2. Dr. Domingo for pulmonary and ventilator management. 3. Dr. Martinez for medical management DISCHARGE INSTRUCTIONS: 1. No driving for 4 weeks, or until physician gives their ok. 2. The patient should sleep in their own bed, no medical bed needed. 3. Stairs are not an issue. If the bedroom is upstairs, it is advised that the patient go up at night and down in the morning for the first week. Go slowly, using handrail and take 1 step at a time. 4. MICKY hose are to be worn for 30 days or until physician discontinues. 5. Heart hugger is to be worn 100% of the time until physician discontinues.(except when showering) 6. No lifting, pushing, or pulling more than 10 pounds for 12 weeks. The physician will advise of any restriction changes. 7. The patient is expected to continue the prescribed walking program. 8. Continue pain control per as needed orders. 9. Continue with incentive spirometry and splinting/heart hugger until otherwise directed by the physician. 10. Must shower daily using liquid antibacterial soap and a separate white washcloth for each individual incision. 11. Routine sternal incision care. No powders, lotions, ointments on incisions. No dressings are necessary on incisions unless they are draining. Dermabond tape is to remain on sternal incision until surgeon follow-up. 12. Please call surgeon/HORSE RACE STARTER for temp greater than 101 F or purulent drainage from incisions. 13. All prescriptions given by surgeon for 30 days. Refills need to be filled through production supply equipment tender/primary care physician. 14. A Red armband has been placed on the patient. It should be worn for 30 days post surgery and will be removed by the cardiac surgeons. If an ER visit is necessary, please make sure the number on the Red armband is called. 15. You have been referred to and are expected to begin Cardiac Rehab in approximately 4-6 weeks. LABORATORY: CBC, CMP TO BE DRAWN on the third day post discharge, (RAN STAT) FAX RESULTS TO [phone] HOME HEALTH SERVICES TO PROVIDE: RN SKILLED HOME CARE SERVICES FOR POST-OP SURGICAL PATIENTS WITH THE FO LLOWING: Coronary Artery Bypass Surgery (CABG), Mitral Valve Replacement/Repair ( MVR), Aortic Valve Replacement/Repair (AVR) RN TO CONTINUE EDUCATION FROM ``ROAD TO A HEALTH HEART PATIENT EDUCATION MANUAL (GIVEN TO PATIENT IN THE HOSPITAL) MEDICATION RECONCILIATION WITH EDUCATION NEEDED ON FIRST HOME VISIT EMPHASIZE IMPORTANCE OF WEARING BREAST SUPPORT/HEART HUGGER ENCOURAGE USE OF INCENTIVE SPIROMETER 10 X EVERY HOUR WHILE AWAKE ENCOURAGE UTILIZATION OF LOWER EXTREMITY COMPRESSION STOCKINGS/MICKY HOSE and ELEVATE LEGS ABOVE LEVEL OF HEART WHILE AT REST. ENCOURAGE AMBULATION 3-5x/day INCREASING TOLERATES, WHILE AVOIDING EXTREMES IN TEMPERATURE FREQUENCY: RN TO OPEN THE PATIENT WITHIN 24 HOURS OF DISCHARGE FROM [place]IENT [place] [facility] [place] VISIT 2-3 X A WEEK FOR 4 WEEKS ESTABLISHED BY PATIENT NEEDS. TELEHEALTH PARAMETERS: WEIGHT: NOTIFY MD OF WEIGHT GAIN OF 2 LBS IN 24 HOURS OR 5 LBS IN ONE WEEK HR: NOTIFY MD OF HR <55 BPM OR HR>100 BPM BP: NOTIFY MD IF BP <90/55 OR BP>140/100 O2 SAT: NOTIFY MD IF PO2<93% ON ROOM AIR SEND TELEHEALTH REPORT TO DRAWING INSTRUCTOR AND CARDIOVASCULAR SURGEON THE FIRST WEEK OF CARE AND THEN BI-WEEKLY. PLEASE ADDITIONALLY COMMUNICATE ANY ABNORMALS AND NEW FINDINGS TO THE SURGEONS OFFICE. For any questions or concerns please call ballpoint pens assembler Misty @ or Don @ Plan - Discharge Summary Discharge Rx Participant: No New Discharge Prescriptions: New Aspirin 325 mg PO DAILY #30 tab Atorvastatin [Lipitor] 40 mg PO DAILY #30 tab Metoprolol Tartrate [Lopressor] 25 mg PO TID #90 tab guaiFENesin [Mucinex] 1,200 mg PO Q12HR #14 tablet.er Pantoprazole [Protonix] 40 mg PO AC-BRKFST #30 tablet.dr Ruiz-Docusate Sodium [Senokot-S] 2 each PO HS #14 tab Acetaminophen Tab [Tylenol] 1,000 mg PO Q6HR PRN tab PRN Reason: Fever And/ Or Pain Ipratropium-Albuterol Nebulize [Duoneb 0.5 mg-3 mg/3 ml Soln] 3 ml INHALATION QID 30 Days #5 box Budesonide-Formot 160-4.5 Mcg [Symbicort 160-4.5 Mcg Inhaler] 2 puff INHALATION BID 30 Days #1 inhaler Continue Clopidogrel [Plavix] 75 mg PO DAILY #30 tab Discontinued Lisinopril [Zestril] 2.5 mg PO BID Atorvastatin [Lipitor] 40 mg PO DAILY Metoprolol Tartrate 25 mg PO BID Aspirin [Adult Low Dose Aspirin EC] 81 mg PO DAILY Mupirocin [Mupirocin 2%] 1 applic NASAL BID #1 tube Naproxen Sodium [Aleve] 220 mg PO BID PRN PRN Reason: Pain Discharge Medication List Acetaminophen Tab [Tylenol] 1,000 mg PO Q6HR PRN tab 12/31/19 [Rx] Aspirin 325 mg PO DAILY #30 tab 12/31/19 [Rx] Atorvastatin [Lipitor] 40 mg PO DAILY #30 tab 12/31/19 [Rx] Budesonide-Formot 160-4.5 Mcg [Symbicort 160-4.5 Mcg Inhaler] 2 puff INHALATION BID 30 Days #1 inhaler 12/31/19 [Rx] Clopidogrel [Plavix] 75 mg PO DAILY #30 tab 12/31/19 [Rx] Ipratropium-Albuterol Nebulize [Duoneb 0.5 mg-3 mg/3 ml Soln] 3 ml INHALATION QID 30 Days #5 box 12/31/19 [Rx] Metoprolol Tartrate [Lopressor] 25 mg PO TID #90 tab 12/31/19 [Rx] Pantoprazole [Protonix] 40 mg PO AC-BRKFST #30 tablet.dr 12/31/19 [Rx] Sennosides-Docusate Sodium [Senokot-S] 2 each PO HS #14 tab 12/31/19 [Rx] guaiFENesin [Mucinex] 1,200 mg PO Q12HR #14 tablet.er 12/31/19 [Rx] Follow up Appointment(s)/Referral(s): Misty Ferreira NPC [Nurse Practitioner] - 01/08/20 11:00 am (Please follow-up at [address] [place] [address] [address], [facility], [address]. Phone number is [phone].) Glenis Pelayo NPC [Nurse Practitioner] - 01/17/20 3:00 pm [facility], [NON-STAFF] - Trenton Miguel MD [STAFF PHYSICIAN] - 01/23/20 9:30 am Brina Bran MD [STAFF PHYSICIAN] - 01/21/20 4:00 pm AlexanderBoaz [STAFF PHYSICIAN] - 01/08/20 9:45 am Ambulatory/Diagnostic Orders: Complete Blood Count w/diff [LAB.AMB] Time Frame: 01/03/20, Facility: [facility], Location: Laboratory [facility] Comprehensive Metabolic Panel [LAB.AMB] Time Frame: 01/03/20, Facility: [facility], Location: Laboratory [facility] Activity/Diet/Wound Care/Special Instructions: DISCHARGE INSTRUCTIONS: 1. No driving for 4 weeks, or until physician gives their ok. 2. The patient should sleep in their own bed, no medical bed needed. 3. Stairs are not an issue. If the bedroom is upstairs, it is advised that the patient go up at night and down in the morning for the first week. Go slowly, using handrail and take 1 step at a time. 4. MICKY hose are to be worn for 30 days or until physician discontinues. 5. Heart hugger is to be worn 100% of the time until physician discontinues.(except when showering) 6. No lifting, pushing, or pulling more than 10 pounds for 12 weeks. The physician will advise of any restriction changes. 7. The patient is expected to continue the prescribed walking program. 8. Continue pain control per as needed orders. 9. Continue with incentive spirometry and splinting/heart hugger until otherwise directed by the physician. 10. Must shower daily using liquid antibacterial soap and a separate white washcloth for each individual incision. 11. Routine sternal incision care. No powders, lotions, ointments on incisions. No dressings are necessary on incisions unless they are draining. Dermabond ta pe is to remain on sternal incision until surgeon follow-up. 12. Please call surgeon/HORSE RACE STARTER for temp greater than 101 F or purulent drainage from incisions. 13. All prescriptions given by surgeon for 30 days. Refills need to be filled through production supply equipment tender/primary care physician. 14. A Red armband has been placed on the patient. It should be worn for 30 days post surgery and will be removed by the cardiac surgeons. If an ER visit is necessary, please make sure the number on the Red armband is called. 15. You have been referred to and are expected to begin Cardiac Rehab in approx imately 4-6 weeks. LABORATORY: CBC, CMP TO BE DRAWN ON THE THIRD DAY POST DISCHARGE, (RAN STAT) FAX RESULTS TO [phone] HOME HEALTH SERVICES TO PROVIDE: RN SKILLED HOME CARE SERVICES FOR POST-OP SURGICAL PATIENTS WITH THE FOLLOWING: Coronary Artery Bypass Surgery (CABG), Mitral Valve Replacement/Repair ( MVR), Aortic Valve Replacement/Repair (AVR) RN TO CONTINUE EDUCATION FROM ``ROAD TO A HEALTH HEART PATIENT EDUCATION MANUAL (GIVEN TO PATIENT IN THE HOSPITAL) MEDICATION RECONCILIATION WITH EDUCATION NEEDED ON FIRST HOME VISIT EMPHASIZE IMPORTANCE OF WEARING BREAST SUPPORT/HEART HUGGER ENCOURAGE USE OF INCENTIVE SPIROMETER 10 X EVERY HOUR WHILE AWAKE ENCOURAGE UTILIZATION OF LOWER EXTREMITY COMPRESSION STOCKINGS/MICKY HOSE and ELEVATE LEGS ABOVE LEVEL OF HEART WHILE AT REST. ENCOURAGE AMBULATION 3-5x/day INCREASING TOLERATES, WHILE AVOIDING EXTREMES IN TEMPERATURE FREQUENCY: RN TO OPEN THE PATIENT WITHIN 24 HOURS OF DISCHARGE FROM [place]PATIENT REHAB WITH [place]HE[place] [facility] [place] TO VISIT 2-3 X A WEEK FOR 4 WEEKS ESTABLISHED BY PATIENT NEEDS. TELEHEALTH PARAMETERS: WEIGHT: NOTIFY MD OF WEIGHT GAIN OF 2 LBS IN 24 HOURS OR 5 LBS IN ONE WEEK HR: NOTIFY MD OF HR <55 BPM OR HR>100 BPM BP: NOTIFY MD IF BP <90/55 OR BP>140/100 O2 SAT: NOTIFY MD IF PO2<93% ON ROOM AIR SEND TELEHEALTH REPORT TO DRAWING INSTRUCTOR AND CARDIOVASCULAR SURGEON THE FIRST WEEK OF CARE AND THEN BI-WEEKLY. PLEASE ADDITIONALLY COMMUNICATE ANY ABNORMALS AND NEW FINDINGS TO THE SURGEONS OFFICE. For any questions or concerns please call ballpoint pens assembler Misty @ or Chele @ Discharge Disposition: HOME WITH HOME HEALTH SERVICES
[2019-12-31 12:08] LABS: Glucose,Whole Blood 124 mg/dL (75-99)
[2019-12-31] MEDS: INSULIN ASPART (NovoLOG) 100 UNIT/ML VIAL SQ SCH ×2 (12:30→13:19)
--- NOTE | 2019-12-31 13:00 | P.PN ---
Subjective Progress Note Date: 12/31/19 Principal diagnosis: Multivessel coronary artery disease with significant left main involvement, status post three-vessel bypass grafting On 12/30/2019, the patient is postop day #3. Doing well. Using incentive spirometer. All of the tubes have been removed. The chest x-ray from today shows some atelectatic changes in lung bases which is expected post surgery. The patient has no specific complaints. Chest wall pain is under good control. Cardiac rhythm is sinus. The blood pressure was slightly low earlier and the patient was given a total of 2 50 mL of albumin 5%. Lopressor dose was also decreased. No significant bronchospasm or wheezing. The patient is a chronic smoker and has COPD. On 12/31/2019 patient seen in follow-up on selective care unit, days posto perative day #4, status post three-vessel bypass grafting surgery. Patient is doing well, no specific complaints, room air pulse ox is 93%, still has some limited coughing and minimal wheezing, overall much improved, vital signs have been stable. He has been ambulating with minimal assistance and supervision. No acute events overnight, today's chest x-ray shows elevation of the left hemidiaphragm consistent with paralysis of the left hemidiaphragm. Left lower lobe atelectasis. His labs have been reviewed, showing a little, 11.9, hemoglobin is 10.6, sodium is 133, potassium is 5.6, the rest of electrolytes and renal profile were within normal limits. Mentation is appropriate, patient is oriented 3, his incisions are clean dry and intact, including sternal incision and chest tube sites. Chest tubes and lines have been discontinued, [place] has been discontinued, and patient has been voiding without any difficulty. Objective - Vital Signs Vital signs: Vital Signs Temp 97.7 F 12/31/19 08:00 Pulse 83 12/31/19 08:00 Resp 19 12/31/19 08:00 BP 113/69 12/31/19 08:00 Pulse Ox 93 L 12/31/19 08:00 Intake & Output 12/30/19 12/31/19 12/31/19 18:59 06:59 18:59 Intake Total 20 240 480 Output Total 490 1 Balance -470 240 479 Weight 99 kg Intake: IV 20 Lactated Ringers 1,000 ml 20 @ 20 mls/hr IV .Q24H FERNIE Rx#:[id number] Oral 240 480 Output: Chest Tube Drainage 0 Chest Tube Left Lateral 0 Chest Urine 490 1 Other: Voiding Method Urinal Toilet Toilet Urinal Urinal # Voids 1 175 ABP, PAP, CO, CI - Last Documented Arterial Blood Pressure 121/61 Pulmonary Artery Pressure 17/8 Cardiac Output 7.8 Cardiac Index 3.8 - Exam GENERAL EXAM: Alert, very pleasant, 59-year-old white male, currently on room air, with a pulse ox of 93%, comfortable in no apparent distress. HEAD: Normocephalic/atraumatic. EYES: Normal reaction of pupils, equal size. Conjunctiva pink, sclera white. NOSE: Clear with pink turbinates. THROAT: No erythema or exudates. NECK: No masses, no JVD, no thyroid enlargement, no adenopathy. CHEST: No chest wall deformity. Symmetrical expansion. Midsternal incision is clean dry intact, chest tube sites are clean dry and intact LUNGS: Equal air entry with end expiratory wheezes CVS: Regular rate and rhythm, normal S1 and S2, no gallops, no murmurs, no rubs ABDOMEN: Soft, nontender. No hepatosplenomegaly, normal bowel sounds, no guarding or rigidity. EXTREMITIES: No clubbing, no edema, no cyanosis, 2+ pulses and upper and lower extremities. MUSCULOSKELETAL: Muscle strength and tone normal. SPINE: No scoliosis or deformity SKIN: No rashes CENTRAL NERVOUS SYSTEM: Alert and oriented -3. No focal deficits, tone is normal in all 4 extremities. PSYCHIATRIC: Alert and oriented -3. Appropriate affect. Intact judgment and insight. - Labs CBC & Chem 7: 12/31/19 05:30 12/31/19 05:30 Labs: Abnormal Lab Results - Last 24 Hours (Table) 12/30/19 12/30/19 12/31/19 Range/Units 17:19 21:48 05:30 WBC 11.9 H (3.8-10.6) k/uL RBC 3.41 L (4.30-5.90) m/uL Hgb 10.6 L (13.0-17.5) gm/dL Hct 30.8 L (39.0-53.0) % Plt Count 145 L (150-450) k/uL Sodium (137-145) mmol/L Potassium (3.5-5.1) mmol/L POC Glucose (mg/dL) 128 H 129 H (75-99) mg/dL Calcium (8.4-10.2) mg/dL 12/31/19 12/31/19 Range/Units 05:30 12:00 WBC (3.8-10.6) k/uL RBC (4.30-5.90) m/uL Hgb (13.0-17.5) gm/dL Hct (39.0-53.0) % Plt Count (150-450) k/uL Sodium 133 L (137-145) mmol/L Potassium 5.6 H (3.5-5.1) mmol/L POC Glucose (mg/dL) 124 H (75-99) mg/dL Calcium 8.3 L (8.4-10.2) mg/dL Assessment and Plan Plan: Assessment: 1 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 The patient underwent three-vessel bypass surgery. The patient is postop day #4. The patient is doing well. The patient's hemodynamically stable. 2 post thoracotomy, and the patient was extubated without any major difficulties. The chest tubes are all removed and the patient is doing well using incentive spirometer. 3 COPD Preoperatively her FEV1 is no other 46% of predicted. 4 hypertension 5 hyperlipidemia 6 peripheral vascular disease 7 tobacco marijuana smoking Plan: Continue encouraging deep breathing and coughing, patient is on room air, does have some exertional dyspnea, wheezing and coughing, continue bronchodilators, otherwise patient is on room air, vital signs have been stable. No acute events overnight. Today's chest x-ray shows elevation of the left hemidiaphragm, sniff test was done showing paradoxical motion of the left hemidiaphragm consistent with paralysis of the left hemidiaphragm, left lower lobe atelectasis. Discharge planning is in progress for discharge home today, patient will go home on DuoNeb nebulized treatments and Symbicort, and he'll need outpatient follow- up with Dr. Domingo in the office in 7-10 days I performed a history & physical examination of the patient and discussed their management with my nurse practitioner, Angleita Montes. I reviewed the nurse practitioner's note and agree with the documented findings and plan of care. Lung sounds are positive for diminished breath sounds with expiratory wheezes. The findings and the impression was discussed with the patient. I attest to the documentation by the nurse practitioner. Time with Patient: Less than 30
--- NOTE | 2019-12-31 13:22 | P.PN ---
Subjective Progress Note Date: 12/31/19 This is a 59-year-old gentleman who is status post coronary artery bypass grafting surgery. Patient is overall doing well, hemodynamically stable. Up ambulating with assistance in the room with no difficulties. He's reaching thousand on of his incentive spirometer. Chest x-ray from today showed elevation of the left hemidiaphragm consistent with paralysis of the left hemidiaphragm and left lower lobe atelectasis. White blood cell count 11.9, hemoglobin 10.6, sodium 133, potassium 5.6. Objective - Vital Signs Vital signs: Vital Signs Temp 97.7 F 12/31/19 08:00 Pulse 83 12/31/19 08:00 Resp 19 12/31/19 08:00 BP 113/69 12/31/19 08:00 Pulse Ox 93 L 12/31/19 08:00 Intake & Output 12/30/19 12/31/19 12/31/19 18:59 06:59 18:59 Intake Total 20 240 480 Output Total 490 1 Balance -470 240 479 Weight 99 kg Intake: IV 20 Lactated Ringers 1,000 ml 20 @ 20 mls/hr IV .Q24H [facility] Rx#:[id number] Oral 240 480 Output: Chest Tube Drainage 0 Chest Tube Left Lateral 0 Chest Urine 490 1 Other: Voiding Method Urinal Toilet Toilet Urinal Urinal # Voids 1 175 ABP, PAP, CO, CI - Last Documented Arterial Blood Pressure 121/61 Pulmonary Artery Pressure 17/8 Cardiac Output 7.8 Cardiac Index 3.8 - Exam GENERAL EXAM: Alert, very pleasant, 59-year-old white male, currently on room air, with a pulse ox of 93%, comfortable in no apparent distress. HEAD: Normocephalic/atraumatic. EYES: Normal reaction of pupils, equal size. Conjunctiva pink, sclera white. NOSE: Clear with pink turbinates. THROAT: No erythema or exudates. NECK: No masses, no JVD, no thyroid enlargement, no adenopathy. CHEST: No chest wall deformity. Symmetrical expansion. Midsternal incision is clean dry intact, chest tube sites are clean dry and intact LUNGS: Equal air entry with end expiratory wheezes CVS: Regular rate and rhythm, normal S1 and S2, no gallops, no murmurs, no rubs ABDOMEN: Soft, nontender. No hepatosplenomegaly, normal bowel sounds, no guarding or rigidity. EXTREMITIES: No clubbing, no edema, no cyanosis, 2+ pulses and upper and lower extremities. MUSCULOSKELETAL: Muscle strength and tone normal. SPINE: No scoliosis or deformity SKIN: No rashes CENTRAL NERVOUS SYSTEM: Alert and oriented -3. No focal deficits, tone is normal in all 4 extremities. PSYCHIATRIC: Alert and oriented -3. Appropriate affect. Intact judgment and insight. - Labs CBC & Chem 7: 12/31/19 05:30 12/31/19 05:30 Labs: Abnormal Lab Results - Last 24 Hours (Table) 12/30/19 12/30/19 12/31/19 Range/Units 17:19 21:48 05:30 WBC 11.9 H (3.8-10.6) k/uL RBC 3.41 L (4.30-5.90) m/uL Hgb 10.6 L (13.0-17.5) gm/dL Hct 30.8 L (39.0-53.0) % Plt Count 145 L (150-450) k/uL Sodium (137-145) mmol/L Potassium (3.5-5.1) mmol/L POC Glucose (mg/dL) 128 H 129 H (75-99) mg/dL Calcium (8.4-10.2) mg/dL 12/31/19 12/31/19 Range/Units 05:30 12:00 WBC (3.8-10.6) k/uL RBC (4.30-5.90) m/uL Hgb (13.0-17.5) gm/dL Hct (39.0-53.0) % Plt Count (150-450) k/uL Sodium 133 L (137-145) mmol/L Potassium 5.6 H (3.5-5.1) mmol/L POC Glucose (mg/dL) 124 H (75-99) mg/dL Calcium 8.3 L (8.4-10.2) mg/dL Assessment and Plan Plan: Assessment and plan: #1 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 The patient underwent three-vessel bypass surgery. The patient is postop day #4. The patient is doing well. The patient's hemodynamically stable. #2 nicotine dependence #3 COPD #4 hypertension #5 hyperlipidemia #6 peripheral vascular disease Plan Patient has been encouraged regarding the use of his incentive spirometer. Anticipating discharge home soon. We'll make a follow-up appointment in the office. DNP note has been reviewed, I agree with a documented findings and plan of care. Patient was seen and examined.
--- NOTE | 2019-12-31 15:00 | P.PN ---
Subjective Patient is doing fairly well today. No acute events overnight reported by nursing staff. Patient is looking forward to be discharged home today. Objective - Vital Signs Vital signs: Vital Signs Temp 97.7 F 12/31/19 08:00 Pulse 83 12/31/19 08:00 Resp 19 12/31/19 08:00 BP 113/69 12/31/19 08:00 Pulse Ox 93 L 12/31/19 08:00 Intake & Output 12/30/19 12/31/19 12/31/19 18:59 06:59 18:59 Intake Total 20 240 480 Output Total 490 1 Balance -470 240 479 Weight 99 kg Intake: IV 20 Lactated Ringers 1,000 ml 20 @ 20 mls/hr IV .Q24H [facility] Rx#:[id number] Oral 240 480 Output: Chest Tube Drainage 0 Chest Tube Left Lateral 0 Chest Urine 490 1 Other: Voiding Method Urinal Toilet Toilet Urinal Urinal # Voids 1 175 ABP, PAP, CO, CI - Last Documented Arterial Blood Pressure 121/61 Pulmonary Artery Pressure 17/8 Cardiac Output 7.8 Cardiac Index 3.8 - Exam General: The patient is awake and alert, in no distress Eye: there is normal conjunctiva bilaterally. Neck: The neck is supple, there is no JVD. Cardiovascular: Normal S1-S2, no S3-S4, no murmurs. Respiratory: Lungs clear to auscultation bilaterally Gastrointestinal: Abdomen is soft, nontender Musculoskeletal: There is no pedal edema. Neurological:. Speech is normal. Skin: Skin is warm and dry - Labs CBC & Chem 7: 12/31/19 05:30 12/31/19 05:30 Labs: Abnormal Lab Results - Last 24 Hours (Table) 12/30/19 12/30/19 12/31/19 Range/Units 17:19 21:48 05:30 WBC 11.9 H (3.8-10.6) k/uL RBC 3.41 L (4.30-5.90) m/uL Hgb 10.6 L (13.0-17.5) gm/dL Hct 30.8 L (39.0-53.0) % Plt Count 145 L (150-450) k/uL Sodium (137-145) mmol/L Potassium (3.5-5.1) mmol/L POC Glucose (mg/dL) 128 H 129 H (75-99) mg/dL Calcium (8.4-10.2) mg/dL 12/31/19 12/31/19 Range/Units 05:30 12:00 WBC (3.8-10.6) k/uL RBC (4.30-5.90) m/uL Hgb (13.0-17.5) gm/dL Hct (39.0-53.0) % Plt Count (150-450) k/uL Sodium 133 L (137-145) mmol/L Potassium 5.6 H (3.5-5.1) mmol/L POC Glucose (mg/dL) 124 H (75-99) mg/dL Calcium 8.3 L (8.4-10.2) mg/dL Assessment and Plan Assessment: Tripple vessel coronary disease - s/p CABG POD #4 - management per cardiothorasic surgery Acute blood loss anemia and thrombocytopenia - anticipated acute blood loss anemia monitor cbc HTN - controlled - follow BP - resume medications per CV surgery HLD - resume statin when okay per CV surgery Hyperglycemia -monitor blood sugars COPD with a component of exacerbation - pulm recs - bronchodilators Peripheral vascular disease Tobacco abuse - cesation advised Discharge planning per primary team
--- NOTE | 2020-01-01 23:38 | CDI ---
Documentation Clarification Form Date: 01/02/2020 From: Fransisco Koch Phone: If you have a question about this query, please contact Rossy Sal[employer] at [phone] between 8am and 5pm. Admit Date: 12/27/2019 Discharge Date: 12/31/2019 Patient Name: Jone Garcia Visit Number: [id number] ATTENTION: The Clinical Documentation Specialists (CDI) and [facility] Coding Staff appreciate your assistance in clarifying documentation. Please respond to the clarification below the line at the bottom and electronically sign. The CDI & [facility] Coding staff will review the response and follow-up if needed. Please note: Queries are made part of the Legal Health Record. If you have any questions, please contact the author of this message via ITS. Dear Omar.MD Cristel., The patient presented with the CAD and underwent CABG. The patient is a 59-year-old male with past medical history significant for hypertension, dyslipidemia, severe peripheral vascular disease, obesity, and tobacco use who initially underwent a cardiac catheterization back in February of 2019 History/Risk Factors: CAD, COPD, hyperlipidemia Radiology findings:There is a small left effusion. In OP report "At this point, the patient did become bradycardic and eventually asystolic requiring one dose of atropine and epinephrine" In your professional opinion, can you please clarify Asystole related to Cardiac Arrest ? YES NO Other, please specify Unable to determine unable to determine MTDD
--- NOTE | 2020-01-08 08:38 | CDI ---
Documentation Clarification Form Date: 01/08/2020 08:01:01 AM From: Gwendolyn Monroe RN CCDS Admit Date: 12/27/2019 06:59:00 AM Patient Name: Jone Garcia Visit Number: [id number] Discharge Date: 12/31/2019 02:12:00 PM ATTENTION: The Clinical Documentation Specialists (CDI) and [facility] Coding Staff appreciate your assistance in clarifying documentation. Please respond to the clarification below the line at the bottom and electronically sign. The CDI & [facility] Coding staff will review the response and follow-up if needed. Please note: Queries are made part of the Legal Health Record. If you have any questions, please contact the author of this message via ITS. Dr. Trenton Miguel Postoperative recovery was complicated by findings consistent with paralysis of the left hemidiaphragm which will be followed on an outpatient basis. Found in the discharge summary 12/30 Patients Admitting Diagnosis: Coronary artery disease Post-Operative Diagnosis: Coronary artery disease Procedure performed: Coronary artery bypass grafting three vessels (left internal mammary artery to left anterior descending artery, saphenous vein graft to diagonal artery, saphenous vein graft to obtuse marginal artery). Endoscopic harvest left greater saphenous vein. Epiaortic ultrasound. Ligation of left atrial appendage using 40mm Atriclip. Transesophageal echocardiogram. History/Risk Factors: 59-year-old male presents to [facility] for elective CABG surgery. Medical History: CAD, COPD with previous history of smoking and obesity. Clinical Indicators: 12/29 CXR: elevation of the left hemidiaphragm. 12/30 SNIFF: Findings consistent with paralysis of the left hemidiaphragm. Treatment: Encouraged use of his incentive spirometer. Outpatient appointment with Pulmonary. Pulmonary Consult: Left hemidiaphragm, sniff test was done showing paradoxical motion of the left hemidiaphragm consistent with paralysis of the left hemidiaphragm, left lower lobe atelectasis. In order to accurately reflect this patients severity of illness, please clarify if the paralysis of the left hemidiaphragm: -is a complication of surgical procedure -is an expected outcome of the surgical procedure -is related to co-morbid condition(s) of -Other please specify -Unable to determine (Last Revision: July 2019) - is a complication of surgical procedure MTDD
== END 2019-12-31 14:12 | disposition home health service (06) | DRG 236 ==
LOC: 2ORMAIN 12-27 06:59 → 2SICU 12-27 15:32 → 3SCARD 12-30 14:55
PROVIDERS: ADMIT Surgery; ATTEND Surgery
PROC: 02100Z9 Bypass Coronary Artery, One Artery from Left Internal Mammary, Open Approach (ICD-10-PCS; principal; 2019-12-27 09:00)
PROC: 02L70CK Occlusion of Left Atrial Appendage with Extraluminal Device, Open Approach (ICD-10-PCS; principal; 2019-12-27 09:00)
PROC: 0211093 Bypass Coronary Artery, Two Arteries from Coronary Artery with Autologous Venous Tissue, Open Approach (ICD-10-PCS; principal; 2019-12-27 09:00)
PROC: 06BQ4ZZ Excision of Left Saphenous Vein, Percutaneous Endoscopic Approach (ICD-10-PCS; principal; 2019-12-27 09:00)
PROC: B24BZZ4 Ultrasonography of Heart with Aorta, Transesophageal (ICD-10-PCS; principal; 2019-12-27 09:00)
PROC: 5A1935Z Respiratory Ventilation, Less than 24 Consecutive Hours (ICD-10-PCS; 2019-12-27 09:00)
PROC: 0BH17EZ Insertion of Endotracheal Airway into Trachea, Via Natural or Artificial Opening (ICD-10-PCS; 2019-12-27 09:00)
DX: I25.10 Atherosclerotic heart disease of native coronary artery without angina pectoris (principal); E87.2 Acidosis; J44.1 Chronic obstructive pulmonary disease with (acute) exacerbation; D62 Acute posthemorrhagic anemia; J98.11 Atelectasis; J98.6 Disorders of diaphragm; T81.89XA Other complications of procedures, not elsewhere classified, initial encounter; E78.5 Hyperlipidemia, unspecified; D69.6 Thrombocytopenia, unspecified; I10 Essential (primary) hypertension; I73.9 Peripheral vascular disease, unspecified; F12.90 Cannabis use, unspecified, uncomplicated; F17.200 Nicotine dependence, unspecified, uncomplicated; G43.909 Migraine, unspecified, not intractable, without status migrainosus; R73.9 Hyperglycemia, unspecified; Z98.890 Other specified postprocedural states; Z83.2 Family history of diseases of the blood and blood-forming organs and certain disorders involving the immune mechanism; Z79.82 Long term (current) use of aspirin; Z79.899 Other long term (current) drug therapy; I25.2 Old myocardial infarction; Z79.02 Long term (current) use of antithrombotics/antiplatelets
CPT/HCPCS: 71045; 71046; 76000; 80048; 80053; 82330; 82805; 83735; 85025; 85520; 85610; 85730; 86850; 86891; 86900; 86901; 86920; 94002; 94640

== ENCOUNTER → 2019-12-24 | Outpatient (CLI) | payer OTHER ==
[2019-12-24 09:20] LABS: Appearance,Urine Clear (Clear); Bilirubin,Urine Negative (Negative); Blood,Urine Negative (Negative); Color,Urine Yellow; Glucose,Urine (UA) Negative (Negative); Ketones,Urine Negative (Negative); Leukocyte Esterase,Urine Negative (Negative); Nitrite,Urine Negative (Negative); Protein,Urine Negative (Negative); Urobilinogen,Urine <2.0 mg/dL (<2.0)
[2019-12-24 09:25] LABS: Partial Thromboplastin Time 22.9 sec (22.0-30.0); Prothrombin Time 10.3 sec (9.0-12.0)
[2019-12-24 09:28] LABS: ALT 26 U/L (4-49); AST 35 U/L (17-59); African American GFR (CKD) >90 (>60 ml/min/1.73 sqM); Albumin 4.1 g/dL (3.5-5.0); Alkaline Phosphatase 46 U/L (38-126); Anion Gap 6 mmol/L; Blood Urea Nitrogen 16 mg/dL (9-20); Calcium 8.9 mg/dL (8.4-10.2); Carbon Dioxide 27 mmol/L (22-30); Chloride 106 mmol/L (98-107); Cholesterol 143 mg/dL (<200); Glucose 101 mg/dL (74-99); HDL Cholesterol 54 mg/dL (40-60); LDL Cholesterol,Calculated 67 mg/dL (0-99); Magnesium 1.8 mg/dL (1.6-2.3); Non-African American GFR(CKD) 81 (>60 ml/min/1.73 sqM); Potassium 4.4 mmol/L (3.5-5.1); Sodium 139 mmol/L (137-145); Total Bilirubin 0.4 mg/dL (0.2-1.3); Total Protein 6.2 g/dL (6.3-8.2); Triglycerides 111 mg/dL (<150)
[2019-12-24 09:39] LABS: HGB 13.4 gm/dL (13.0-17.5); MCH 29.2 pg (25.0-35.0); MCHC 32.6 g/dL (31.0-37.0); MCV 89.6 fL (80.0-100.0); Mean Platelet Volume 8.1; Platelet Count 199 k/uL (150-450); RBC 4.58 m/uL (4.30-5.90); RDW 12.9 % (11.5-15.5)
--- NOTE | 2019-12-24 11:49 | XR ---
EXAMINATION TYPE: XR chest 2V DATE OF EXAM: 12/24/2019 COMPARISON: NONE HISTORY: Shortness of breath TECHNIQUE: Frontal and lateral views of the chest are obtained. FINDINGS: Scattered senescent parenchymal changes noted. Hyperinflation compatible with COPD. No evidence for infiltrate. No evidence for atelectasis. Heart size is stable. Mediastinal structures are stable and grossly unremarkable. No evidence for hilar prominence. Degenerative changes dorsal spine. IMPRESSION: 1. No evidence for acute pulmonary disease.
[2019-12-24 16:02] LABS: Hepatitis A Antibody IgM Non-Reactive (Non-Reactive); Hepatitis B Core IgM Non-Reactive (Non-Reactive); Hepatitis B Surface Antigen Non-Reactive (Non-Reactive); Hepatitis C IgG Antibody Non-Reactive (Non-Reactive)
--- NOTE | 2019-12-25 08:34 | P.PN ---
Progress Note - Text Progress Note Date: 12/24/19 5 meter walk test completed: #1 5.30 sec #2 4.66 sec #3 4.46 sec Patient tolerated well without CP or SOB. STS risk score calculated and discussed with patient
[2019-12-25 16:39] LABS: Hemoglobin A1C 5.8 % (4.0-6.0)
--- NOTE | 2019-12-26 12:11 | P.VSCSTY ---
Greater Saphenous Vein Mapping This is bilateral lower extremity greater saphenous vein mapping. Date of service: 12/24/2019 Vein quality and ultrasound appearance: We see no intraluminal thrombus or wall changes. Vein size groin right : 5 x 7 groin left: 7 x 6 High thigh right: 2 x 2 high thigh left: 3 x 2 Mid thigh right: 2 x 2 mid thigh left: 2 x 2 Above-knee right: 2 x 1 above-knee left: 2 x 2 Below knee right: 2 x 1 below-knee left: 2 x 1 Mid calf right: 2 x 1 mid calf left: One by one Ankle right: One by one ankle left: 2 x 1 Impression: The areas of the vein mid to high thigh on the right and at the knee and above on the left may be usable. Below the knee appears probably too small for use as conduit. Clinical correlation recommended..
--- NOTE | 2019-12-26 12:13 | P.ARTDOP ---
Arterial Doppler Bilateral radial artery studies: Date of study: 12/24/2019 Reason for study: Pre-CABG Findings: Doppler assessment shows no right to left or segmental pressure gradients. Imaging shows all areas of both radials to be above 3 mm. However, there is a drastic decrease in pressure to almost no flow with radial artery compression on both sides. Impression: Neither radial appears to be usable based on pressure changes with radial artery compression.
== END | disposition home or self-care (01) ==
LOC: LABWHC1 07:06
PROVIDERS: ATTEND Surgery
DX: I25.10 Atherosclerotic heart disease of native coronary artery without angina pectoris (principal); U07.1 COVID-19
CPT/HCPCS: 94150; 80061; 80053; 80074; 84443; 83735; 85027; 85610; 85730; 81003; 87070; 87086; 83036; 71046; 93930; 93970; 93923; U0003; C9803

== ENCOUNTER 2020-01-31 13:41 | Inpatient (IN) | payer OTHER ==
[2020-01-31] MEDS ORDERED: SODIUM CHLORIDE 0.9% 1,000 ML IV STA (13:58)
[2020-01-31] MEDS ORDERED: SODIUM CHLORIDE 0.9% 500 ML 500 ML IV STA (13:58)
--- NOTE | 2020-01-31 13:59 | ED ---
Arrhythmia/Palpitations HPI - General Chief Complaint: Arrhythmia/Palpitations Stated Complaint: Rapid HR-Sent by dr lunauma Time Seen by Provider: 01/31/20 13:58 Source: patient, RN notes reviewed, old records reviewed Mode of arrival: ambulatory Limitations: no limitations - History of Present Illness Initial Comments: This is a 5-year-old male sent from to his office for evaluation regards to elevated heart rate significantly elevated heart rate, patient is going to some testing including an echo to ER because of abnormal findings maybe being t achycardia. Patient has history of triple bypass. Patient has several from recent increased shortness of breath and chest pain - Related Data Previous Rx's Medication Instructions Recorded Acetaminophen Tab [Tylenol] 1,000 mg PO Q6HR PRN tab 12/31/19 Aspirin 325 mg PO DAILY #30 tab 12/31/19 Atorvastatin [Lipitor] 40 mg PO DAILY #30 tab 12/31/19 Budesonide-Formot 160-4.5 Mcg 2 puff INHALATION BID 30 Days #1 12/31/19 [Symbicort 160-4.5 Mcg Inhaler] inhaler Clopidogrel [Plavix] 75 mg PO DAILY #30 tab 12/31/19 Ipratropium-Albuterol Nebulize 3 ml INHALATION QID 30 Days #5 box 12/31/19 [Duoneb 0.5 mg-3 mg/3 ml Soln] Metoprolol Tartrate [Lopressor] 25 mg PO TID #90 tab 12/31/19 Pantoprazole [Protonix] 40 mg PO AC-BRKFST #30 tablet. 12/31/19 Sennosides-Docusate Sodium 2 each PO HS #14 tab 12/31/19 [Senokot-S] guaiFENesin [Mucinex] 1,200 mg PO Q12HR #14 tablet.er 12/31/19 Allergies Allergy/AdvReac Type Severity Reaction Status Date / Time No Known Allergies Allergy Verified 01/31/20 13:51 Review of Systems ROS Statement: Those systems with pertinent positive or pertinent negative responses have been documented in the HPI. ROS Other: All systems not noted in ROS Statement are negative. Past Medical History Past Medical History: Coronary Artery Disease (CAD), COPD, Hyperlipidemia, Hypertension, Vascular Disorder Additional Past Medical History / Comment(s): hx migrainres, gets SOB, soreness both lower legs Last Myocardial Infarction Date:: unkown History of Any Multi-Drug Resistant Organisms: None Reported Past Surgical History: Coronary Bypass/CABG, Heart Catheterization, Orthopedic Surgery Additional Past Surgical History / Comment(s): surgery for fx rt shoulder, heart cath about 9 months ago at [facility], triple bypass Past Anesthesia/Blood Transfusion Reactions: No Reported Reaction Additional Past Anesthesia/Blood Transfusion Reaction / Comment(s): no hx blood transfusion Past Psychological History: No Psychological Hx Reported Smoking Status: Current every day smoker Past Alcohol Use History: Occasional Past Drug Use History: Marijuana - Past Family History Mother History Unknown: Yes Additional Family Medical History / Comment(s): mother had blood clot - not sure where General Exam Limitations: no limitations Course Vital Signs 01/31/20 13:51 Temperature 97.8 F Pulse Rate 130 H Respiratory 18 Rate Blood Pressure 124/83 O2 Sat by Pulse 97 Oximetry - Reevaluation(s) Reevaluation #1: 01/31/20 15:57 Medical records reviewed Reevaluation #2: 01/31/20 15:57 Patient symptoms and heart rate did improve significantly here in the ER Reevaluation #3: 01/31/20 15:57 Patient informed results and questions answered - Consultations Consultation #1: Spoke with PMH agree to admit this patient EKG Findings - EKG Comments: EKG Findings:: EKG shows atrial flutter rate of 128 QRS 94 QTC 493. Repeat. EKG shows atrial flutter rate of 65 QRS 88 QTc of 426 Medical Decision Making - Medical Decision Making 59 male DF for evaluation patient with chest pain found to be in atrial fibrillation with RVR will admit for cardiology evaluation continued care - Lab Data Result diagrams: 01/31/20 14:08 01/31/20 14:08 Lab Results 01/31/20 01/31/20 01/31/20 Range/Units 14:08 14:08 14:08 WBC 10.4 (3.8-10.6) k/uL RBC 4.52 (4.30-5.90) m/uL Hgb 12.8 L (13.0-17.5) gm/dL Hct 40.3 (39.0-53.0) % MCV 89.1 (80.0-100.0) fL MCH 28.4 (25.0-35.0) pg MCHC 31.8 (31.0-37.0) g/dL RDW 14.2 (11.5-15.5) % Plt Count 277 (150-450) k/uL Neutrophils % 59 % Lymphocytes % 26 % Monocytes % 5 % Eosinophils % 7 % Basophils % 1 % Neutrophils # 6.2 (1.3-7.7) k/uL Lymphocytes # 2.7 (1.0-4.8) k/uL Monocytes # 0.5 (0-1.0) k/uL Eosinophils # 0.7 (0-0.7) k/uL Basophils # 0.1 (0-0.2) k/uL PT 11.1 (9.0-12.0) sec INR 1.1 (<1.2) APTT 23.7 (22.0-30.0) sec Sodium 137 (137-145) mmol/L Potassium 4.4 (3.5-5.1) mmol/L Chloride 103 (98-107) mmol/L Carbon Dioxide 25 (22-30) mmol/L Anion Gap 9 mmol/L BUN 15 (9-20) mg/dL Creatinine 1.06 (0.66-1.25) mg/dL Est GFR (CKD-EPI)AfAm 88 (>60 ml/min/1.73 sqM) Est GFR (CKD-EPI)NonAf 77 (>60 ml/min/1.73 sqM) Glucose 129 H (74-99) mg/dL Calcium 9.6 (8.4-10.2) mg/dL Phosphorus 3.9 (2.5-4.5) mg/dL Magnesium 2.0 (1.6-2.3) mg/dL Total Bilirubin 0.7 (0.2-1.3) mg/dL AST 44 (17-59) U/L ALT 42 (4-49) U/L Alkaline Phosphatase 86 (38-126) U/L Creatine Kinase 51 L (55-170) U/L CK-MB (CK-2) (0.0-2.4) ng/mL Troponin I (0.000-0.034) ng/mL NT-Pro-B Natriuret Pep pg/mL Total Protein 6.9 (6.3-8.2) g/dL Albumin 4.3 (3.5-5.0) g/dL TSH 1.830 (0.465-4.680) mIU/L 01/31/20 01/31/20 Range/Units 14:08 14:08 WBC (3.8-10.6) k/uL RBC (4.30-5.90) m/uL Hgb (13.0-17.5) gm/dL Hct (39.0-53.0) % MCV (80.0-100.0) fL MCH (25.0-35.0) pg MCHC (31.0-37.0) g/dL RDW (11.5-15.5) % Plt Count (150-450) k/uL Neutrophils % % Lymphocytes % % Monocytes % % Eosinophils % % Basophils % % Neutrophils # (1.3-7.7) k/uL Lymphocytes # (1.0-4.8) k/uL Monocytes # (0-1.0) k/uL Eosinophils # (0-0.7) k/uL Basophils # (0-0.2) k/uL PT (9.0-12.0) sec INR (<1.2) APTT (22.0-30.0) sec Sodium (137-145) mmol/L Potassium (3.5-5.1) mmol/L Chloride (98-107) mmol/L Carbon Dioxide (22-30) mmol/L Anion Gap mmol/L BUN (9-20) mg/dL Creatinine (0.66-1.25) mg/dL Est GFR (CKD-EPI)AfAm (>60 ml/min/1.73 sqM) Est GFR (CKD-EPI)NonAf (>60 ml/min/1.73 sqM) Glucose (74-99) mg/dL Calcium (8.4-10.2) mg/dL Phosphorus (2.5-4.5) mg/dL Magnesium (1.6-2.3) mg/dL Total Bilirubin (0.2-1.3) mg/dL AST (17-59) U/L ALT (4-49) U/L Alkaline Phosphatase (38-126) U/L Creatine Kinase (55-170) U/L CK-MB (CK-2) 2.5 H (0.0-2.4) ng/mL Troponin I <0.012 (0.000-0.034) ng/mL NT-Pro-B Natriuret Pep 2940 pg/mL Total Protein (6.3-8.2) g/dL Albumin (3.5-5.0) g/dL TSH (0.465-4.680) mIU/L - Radiology Data Radiology results: report reviewed (Chest x-ray with pleural effusion), image reviewed Critical Care Time Critical Care Time: Yes Total Critical Care Time: 31 Disposition Clinical Impression: CAD (coronary artery disease), Atrial fibrillation Disposition: ADMITTED IP TO THIS HOSP Condition: Fair Is patient prescribed a controlled substance at d/c from ED?: No Referrals: None,Stated [Primary Care Provider] - 1-2 days
[2020-01-31] MEDS ORDERED: METOPROLOL TARTRATE 5 MG/5 ML VIAL IVP STA (14:01)
[2020-01-31] MEDS ORDERED: DILTIAZEM DRIP BOLUS FROM BAG 1 MG SOLN IV ONE (14:01)
[2020-01-31] MEDS: DILTIAZEM 125 MG in SODIUM CHLORIDE 0.9% 100 ML IV SCH (14:17)
[2020-01-31 14:23] LABS: Basophils # (A) 0.1 k/uL (0-0.2); Basophils % (A) 1 %; Eosinophils # (A) 0.7 k/uL (0-0.7); Eosinophils % (A) 7 %; HCT 40.3 % (39.0-53.0); HGB 12.8 gm/dL (13.0-17.5); Lymphocytes # (A) 2.7 k/uL (1.0-4.8); Lymphocytes % (A) 26 %; MCH 28.4 pg (25.0-35.0); MCHC 31.8 g/dL (31.0-37.0); MCV 89.1 fL (80.0-100.0); Mean Platelet Volume 7.8; Monocytes # (A) 0.5 k/uL (0-1.0); Monocytes % (A) 5 %; Neutrophils # (A) 6.2 k/uL (1.3-7.7); Neutrophils % (A) 59 %; Platelet Count 277 k/uL (150-450); RBC 4.52 m/uL (4.30-5.90); RDW 14.2 % (11.5-15.5); WBC 10.4 k/uL (3.8-10.6)
[2020-01-31 14:38] LABS: INR 1.1 (<1.2); Partial Thromboplastin Time 23.7 sec (22.0-30.0); Prothrombin Time 11.1 sec (9.0-12.0)
[2020-01-31 14:39] LABS: Albumin 4.3 g/dL (3.5-5.0); Calcium 9.6 mg/dL (8.4-10.2); Phosphorus 3.9 mg/dL (2.5-4.5); Potassium 4.4 mmol/L (3.5-5.1); Total Bilirubin 0.7 mg/dL (0.2-1.3); Total Protein 6.9 g/dL (6.3-8.2)
[2020-01-31 14:59] LABS: Creatine Kinase MB 2.5 ng/mL (0.0-2.4); Troponin I <0.012 ng/mL (0.000-0.034)
--- NOTE | 2020-01-31 15:18 | XR ---
EXAMINATION TYPE: XR chest 2V DATE OF EXAM: 01/31/2020 COMPARISON: 01/17/2020 TECHNIQUE: PA and lateral views submitted. HISTORY: Post CABG FINDINGS: Elevated left hemidiaphragm with tiny pleural effusion and basilar consolidation. Right lung clear. H eart size enlarged with postsurgical changes but no pneumothorax or overt failure. Hyperinflation sug gests COPD. Arthropathy of the shoulders and degenerative change of the spine. IMPRESSION: 1. Left basilar atelectasis and tiny effusion or pleural thickening with elevated left hemidiaphragm. Findings are slightly improved.
[2020-01-31] MEDS ORDERED: HEPARIN SODIUM,PORCINE 5,000 UNIT/ML 1 ML VIAL IV ONE (15:55)
[2020-01-31] MEDS ORDERED: HEPARIN SODIUM,PORCINE 5,000 UNIT/ML 1 ML VIAL IV PRN (15:55)
[2020-01-31] MEDS ORDERED: ASPIRIN 81 MG PO STA (15:55)
[2020-01-31] MEDS ORDERED: NITROGLYCERIN SL TABS 0.4 MG TAB SUBLINGUAL PRN (15:55)
[2020-01-31] MEDS ORDERED: HEPARIN SOD,PORK IN 0.45% NACL 25,000 UNIT in 0.45% NACL 1 250ML.BAG IV SCH (16:00)
[2020-01-31] MEDS: SODIUM CHLORIDE 0.9% 1,000 ML IV SCH (18:19)
[2020-01-31] MEDS ORDERED: ALPRAZolam 0.25 MG TAB PO PRN (18:46)
[2020-01-31] MEDS ORDERED: TEMAZEPAM 15 MG CAP PO PRN (18:46)
[2020-01-31] MEDS ORDERED: ACETAMINOPHEN TAB 500 MG TAB PO PRN (18:46)
[2020-01-31] MEDS: METOPROLOL TARTRATE 25 MG TAB PO SCH (20:19)
[2020-01-31] MEDS: NICOTINE 14MG/24HR PATCH TRANSDERM SCH (20:19)
[2020-01-31] MEDS: HYDROcodone/APAP 5-325MG 1 EACH TAB PO PRN (20:21)
--- NOTE | 2020-01-31 20:21 | HP ---
HISTORY AND PHYSICAL DATE OF SERVICE: 01/31/2020 CHIEF COMPLAINT: Palpitations. HISTORY OF PRESENT ILLNESS: This 59-year-old gentleman with a past medical history of multiple medical problems, including history of COPD, hypertension, hyperlipidemia, history of migraine, recently had CAD, CABG x3. The patient was evaluated by Cardiology today. Patient has complaints of palpitations. Patient was found to have atrial fibrillation with a fast ventricular rate. The patient was given Cardizem bolus with IV at 5 mg/hour and the patient is being closely monitored. TSH is normal at this time. There is no history of any fever, rigor or chills. No history of headache, loss of consciousness, seizures. EKG, which I reviewed at the time of admission, showed possibly atrial flutter with 2:1 AV conduction. Chest x-ray, which was reviewed by me, showed left basal atelectasis and tiny effusion. PAST MEDICAL HISTORY: History of recent CAD, CABG, history of hypertension, hyperlipidemia, COPD. MEDICATIONS: Medications prior to admission include Protonix 40 mg daily, lopressor 75 mg b.i.d., DuoNeb q.i.d., Symbicort b.i.d., Plavix 75 mg p.o. daily, Lipitor 40 mg daily, aspirin 325 mg daily and Tylenol p.r.n. ALLERGIES: NONE. FAMILY HISTORY: History of blood clot in the family. SOCIAL HISTORY: History of smoking, ongoing. History of THC. REVIEW OF SYSTEMS: ENT: No diminished hearing. No diminished vision. CARDIOVASCULAR SYSTEM: No angina, palpitations. RESPIRATORY SYSTEM: As mentioned earlier. GI: No nausea, vomiting. : No dysuria or retention. NERVOUS SYSTEM: No numbness, weakness. ALLERGY/IMMUNOLOGY: No asthma, hayfever. MUSCULOSKELETAL: As mentioned earlier. HEMATOLOGY/ONCOLOGY: No history of anemia. ENDOCRINE: No history of diabetes, hypothyroidism. CONSTITUTIONAL: As mentioned earlier. DERMATOLOGY: Negative. RHEUMATOLOGY: Negative. PSYCHIATRY: As mentioned earlier. PHYSICAL EXAMINATION: Patient alert and oriented x3. Pulse is 79, blood pressure 133/86, respiration 16, temperature 98.2, pulse ox 97% on room air. HEENT: Conjunctivae normal. Oral mucosa moist. NECK: No jugular venous distention. No carotid bruit. No lymph node enlargement. CARDIOVASCULAR SYSTEM: S1, S2 irregular. No murmur. No thrills. RESPIRATORY SYSTEM: Breath sounds diminished at the bases. Bilateral scattered rhonchi and crackles, especially on the left side. ABDOMEN: Soft, non-tender. No mass palpable. LEGS: No edema. No swelling. NERVOUS SYSTEM: Higher functions as mentioned earlier. Moves all 4 limbs. No focal motor or sensory deficit. LYMPHATICS: No lymph node palpable in neck, axillae or groin. SKIN: No ulcer, rash, bleeding. JOINTS: No active deforming arthropathy. LABS: WBC 10.2, hemoglobin 12.8. Creatine kinase 51. Otherwise, EKG shows atrial flutter with 2:1 AV block. ASSESSMENT: 1. Atrial flutter with fast ventricular rate with 2:1 AV block, present on admission. 2. History of recent coronary artery disease, coronary artery bypass grafting x3. 3. Chronic obstructive pulmonary disease. 4. Hypertension. 5. Hyperlipidemia. 6. History of continued ongoing nicotine dependence. 7. History of degenerative joint disease. 8. History of right shoulder surgery. 9. History of tetrahydrocannabinol. RECOMMENDATIONS AND DISCUSSION: In this 62-year-old gentleman who presented with multiple complex medical issues, we will monitor the patient closely, continue the current medications, continue symptomatic treatment. The patient is on Cardizem. Cardiology consultation. Otherwise, I would recommend bronchodilators, resume the home medications. Guarded prognosis because of multiple complex medical issues. Will cut down on the IV fluids to KVO. Also recommend UA with micro. Symptomatic treatment. Further recommendation to follow. Repeat labs in the morning. Also recommend smoking cessation and follow with primary physician closely in the outpatient setting. MMODL / IJN: [id number] /
[2020-01-31] MEDS: SYMBICORT 160-4.5 MCG INHALER INHALATION SCH (20:51)
[2020-01-31 22:53] LABS: Appearance,Urine Clear (Clear); Bilirubin,Urine Negative (Negative); Blood,Urine Negative (Negative); Color,Urine Yellow; Glucose,Urine (UA) Negative (Negative); Ketones,Urine Negative (Negative); Leukocyte Esterase,Urine Negative (Negative); Nitrite,Urine Negative (Negative); Protein,Urine Negative (Negative); Specific Gravity,Urine 1.012 (1.001-1.035)
[2020-02-01] MEDS: SODIUM CHLORIDE 0.9% 1,000 ML IV SCH (05:42)
[2020-02-01] MEDS: PANTOPRAZOLE 40 MG TABLET PO SCH (06:33)
[2020-02-01] MEDS: HYDROcodone/APAP 5-325MG 1 EACH TAB PO PRN ×3 (06:56→23:14)
[2020-02-01 07:55] LABS: African American GFR (CKD) >90 (>60 ml/min/1.73 sqM); Anion Gap 6 mmol/L; Blood Urea Nitrogen 16 mg/dL (9-20); Calcium 8.7 mg/dL (8.4-10.2); Carbon Dioxide 28 mmol/L (22-30); Chloride 102 mmol/L (98-107); Cholesterol 109 mg/dL (<200); Glucose 116 mg/dL (74-99); HDL Cholesterol 40 mg/dL (40-60); LDL Cholesterol,Calculated 47 mg/dL (0-99); Non-African American GFR(CKD) 82 (>60 ml/min/1.73 sqM); Potassium 4.3 mmol/L (3.5-5.1); Sodium 136 mmol/L (137-145); Triglycerides 108 mg/dL (<150)
[2020-02-01 07:57] LABS: Basophils # (A) 0.1 k/uL (0-0.2); Basophils % (A) 1 %; Eosinophils # (A) 1.1 k/uL (0-0.7); Eosinophils % (A) 10 %; HCT 38.3 % (39.0-53.0); HGB 11.8 gm/dL (13.0-17.5); Hypochromasia Moderate; Lymphocytes # (A) 2.9 k/uL (1.0-4.8); Lymphocytes % (A) 26 %; MCH 28.4 pg (25.0-35.0); MCHC 30.7 g/dL (31.0-37.0); MCV 92.6 fL (80.0-100.0); Mean Platelet Volume 8.3; Monocytes # (A) 0.8 k/uL (0-1.0); Monocytes % (A) 7 %; Neutrophils % (A) 54 %; Platelet Count 213 k/uL (150-450); RBC 4.14 m/uL (4.30-5.90); RDW 14.1 % (11.5-15.5)
[2020-02-01] MEDS: IPRATROPIUM-ALBUTEROL 3 ML NEB INHALATION PRN (08:08)
[2020-02-01] MEDS: SYMBICORT 160-4.5 MCG INHALER INHALATION SCH ×2 (08:08→20:27)
[2020-02-01] MEDS: NICOTINE 14MG/24HR PATCH TRANSDERM SCH (08:42)
[2020-02-01] MEDS: METOPROLOL TARTRATE 25 MG TAB PO SCH (08:53)
[2020-02-01] MEDS: CLOPIDOGREL 75 MG TAB PO SCH (08:53)
[2020-02-01] MEDS: ATORVASTATIN 40 MG TAB PO SCH (08:53)
[2020-02-01] MEDS ORDERED: ASPIRIN 325 MG TAB PO SCH (09:00)
[2020-02-01 11:51] VITALS: BMI 29.2
--- NOTE | 2020-02-01 13:31 | P.CRDCN ---
History of Present Illness Consult date: 02/01/20 Reason for Consult (text): Atrial flutter with rapid ventricular rate History of present illness: HISTORY OF PRESENTING ILLNESS This is a pleasant 59-year-old male past medical history significant for peripheral arterial disease, tobacco abuse, hypertension, hypercholesterolemia and coronary artery disease status post CABG. The patient follows with Dr. Bran in the office. He previously was having what he felt was GERD over the preceding year and had workup which showed multivessel disease and he did eventually end up undergoing CABG 1.5 months ago. He denies any further episodes of his GERD which is likely his anginal equivalent however has noticed at times decreased exercise tolerance since his bypass. He was following up in the office and was noted to have a rapid heart rate with atrial flutter and RVR. He was therefore transferred to the hospital. He denies any chest pain however admits to some feeling of fatigue and shortness of breath. He has been on his aspirin and Plavix since the bypass. Patient was placed on a Cardizem drip and is currently at 5 mg with improved heart rate to the 70s. DIAGNOSTICS EKG reveals atrial flutter with a 2-1 block with a heart rate of 129, poor R- wave progression, nonspecific ST-T wave abnormalities. Chest xray left basilar atelectasis and elevated left hemidiaphragm which is sl ightly improved. Laboratory reviewed, he does have a mild leukocytosis with white blood cell count of 11.0, hemoglobin 11.8, creatinine 1.0, troponin normal 2. ProBNP was elevated at 2900 Current cardiac medications include aspirin 325 mg daily, Lipitor 40 mg daily, Plavix 75 mg daily, Lopressor 25 mg twice a day, and a Cardizem drip. REVIEW OF SYSTEMS At the time of my exam: CONSTITUTIONAL: Denies fever or chills. CARDIOVASCULAR: Denies chest pain, +shortness of breath, no orthopnea, PND or palpitations. RESPIRATORY: Denies cough. GASTROINTESTINAL: Denies abdominal pain, diarrhea, constipation, nausea or vomiting. MUSCULOSKELETAL: Denies myalgias. NEUROLOGIC: Denies numbness, tingling or weakness. ENDOCRINE: +fatigue, weight change, polydipsia or polyurina. GENITOURINARY: Denies burning, hematuria or urgency with micturation. HEMATOLOGIC: Denies history of anemia or bleeding. PHYSICAL EXAMINATION Blood pressure 120/76 heart rate 101 afebrile and maintaining oxygen saturation on room air. CONSTITUTIONAL: No apparent distress, obese HEENT: Head is normocephalic. Pupils are equal, round. Sclerae anicteric. Mucous membranes of the mouth are moist. No JVD. No carotid bruit. CHEST EXAMINATION: Lungs are clear to auscultation. Mild crackles at bases. HEART EXAMINATION: Regular rate and rhythm. S1, S2 heard. No murmurs, gallops or rub. ABDOMEN: Soft, nontender. Positive bowel sounds. EXTREMITIES: 2+ peripheral pulses, no lower extremity edema and no calf tenderness. NEUROLOGIC EXAMINATION: Patient is awake, alert and oriented x3. ASSESSMENT 1. New onset atrial flutter 2. Stable coronary artery disease, status post CABG 1.5 months ago. No angina and normal troponins 3. Recent worsening dyspnea since his surgery, suspect component of acute diastolic heart failure with proBNP elevated at 2900 and mild crackles on exam. Likely exacerbated by atrial flutter with RVR. 4. Tobacco abuse 5. Hypertension 6. Hypercholesterolemia 7. Peripheral arterial disease PLAN Patient's heart rates have been better improved on the Cardizem drip at 5. He is normally on Lopressor 75 mg twice a day. We will increase his Lopressor to 100 mg twice a day and attempt to wean the Cardizem drip. We'll check a 2-D echo given his concerns of shortness breath since surgery to evaluate LV function. It does appear to be volume overloaded and likely diastolic heart failure. We will give him 1 dose of IV Lasix and monitor response. Discussed anticoagulation and patient is agreeable. We will try Eliquis 5 mg twice a day. Patient may benefit from a atrial flutter ablation however this can be arranged as an outpatient. Ideally hope to control his heart rate and optimize his fluid status in hospital. Past Medical History Past Medical History: Coronary Artery Disease (CAD), COPD, Hyperlipidemia, Hypertension, Vascular Disorder Additional Past Medical History / Comment(s): hx migrainres, gets SOB, soreness both lower legs, neck pain Last Myocardial Infarction Date:: unkown History of Any Multi-Drug Resistant Organisms: None Reported Past Surgical History: Coronary Bypass/CABG, Heart Catheterization, Orthopedic Surgery Additional Past Surgical History / Comment(s): surgery for fx rt shoulder, heart cath about 9 months ago at [facility], triple bypass Past Anesthesia/Blood Transfusion Reactions: No Reported Reaction Additional Past Anesthesia/Blood Transfusion Reaction / Comment(s): no hx blood transfusion Past Psychological History: No Psychological Hx Reported Smoking Status: Current every day smoker Past Alcohol Use History: Occasional Additional Past Alcohol Use History / Comment(s): smokes 3-4 cigarettes daily. started smoking age 8 or 9 Past Drug Use History: Marijuana Additional Drug Use History / Comment(s): occ use - Past Family History Mother History Unknown: Yes Additional Family Medical History / Comment(s): mother had blood clot - not sure where Medications and Allergies Home Medications Medication Instructions Recorded Confirmed Type Acetaminophen Tab [Tylenol] 1,000 mg PO Q6HR PRN tab 12/31/19 01/31/20 Rx Aspirin 325 mg PO DAILY #30 tab 12/31/19 01/31/20 Rx Atorvastatin [Lipitor] 40 mg PO DAILY #30 tab 12/31/19 01/31/20 Rx Clopidogrel [Plavix] 75 mg PO DAILY #30 tab 12/31/19 01/31/20 Rx Pantoprazole [Protonix] 40 mg PO AC-BRKFST #30 tablet. 12/31/19 01/31/20 Rx Fluticasone/Salmeterol 1 puff INHALATION RT-BID 01/31/20 01/31/20 History [Fluticasone-Salmeterol 232-14] Ipratropium-Albuterol Nebulize 3 ml INHALATION RT-QID PRN 01/31/20 01/31/20 History [Duoneb 0.5 mg-3 mg/3 ml Soln] Metoprolol Tartrate [Lopressor] 75 mg PO BID 01/31/20 01/31/20 History Allergies Allergy/AdvReac Type Severity Reaction Status Date / Time No Known Allergies Allergy Verified 01/31/20 13:51 Physical Exam Vitals: Vital Signs Temp Pulse Pulse Resp BP BP Pulse Ox 02/01/20 11:05 97.9 F 101 H 16 120/76 95 02/01/20 08:35 98.0 F 126 H 16 123/80 94 L 02/01/20 08:20 89 02/01/20 08:08 88 02/01/20 03:13 98.7 F 63 16 124/77 100 01/31/20 23:05 98.1 F 67 18 118/79 97 01/31/20 19:31 98 F 90 18 119/83 100 01/31/20 17:58 97 01/31/20 17:30 98.2 F 79 16 133/86 97 01/31/20 16:30 98.2 F 66 79 16 116/105 133/86 97 01/31/20 16:00 66 17 115/80 97 01/31/20 15:30 65 17 96/74 96 01/31/20 15:09 101/68 01/31/20 13:51 97.8 F 130 H 18 124/83 97 Intake and Output 01/31/20 02/01/20 02/01/20 22:59 06:59 14:59 Intake Total 240 Balance 240 Intake: Oral 240 Other: # Voids 1 1 2 Weight 74.389 kg 90 kg 90 kg Results 02/01/20 06:53 02/01/20 06:53 Cardiac Enzymes 01/31/20 01/31/20 01/31/20 Range/Units 14:08 14:08 17:00 AST 44 (17-59) U/L CK-MB (CK-2) 2.5 H (0.0-2.4) ng/mL Troponin I <0.012 <0.012 (0.000-0.034) ng/mL 01/31/20 Range/Units 20:01 AST (17-59) U/L CK-MB (CK-2) (0.0-2.4) ng/mL Troponin I 0.014 (0.000-0.034) ng/mL Coagulation 01/31/20 02/01/20 Range/Units 14:08 00:18 PT 11.1 (9.0-12.0) sec APTT 23.7 47.5 H (22.0-30.0) sec Lipids 02/01/20 Range/Units 06:53 Triglycerides 108 (<150) mg/dL Cholesterol 109 (<200) mg/dL HDL Cholesterol 40 (40-60) mg/dL CBC 01/31/20 02/01/20 Range/Units 14:08 06:53 WBC 10.4 11.0 H (3.8-10.6) k/uL RBC 4.52 4.14 L (4.30-5.90) m/uL Hgb 12.8 L 11.8 L (13.0-17.5) gm/dL Hct 40.3 38.3 L (39.0-53.0) % Plt Count 277 213 (150-450) k/uL Comprehensive Metabolic Panel 01/31/20 02/01/20 Range/Units 14:08 06:53 Sodium 137 136 L (137-145) mmol/L Potassium 4.4 4.3 (3.5-5.1) mmol/L Chloride 103 102 (98-107) mmol/L Carbon Dioxide 25 28 (22-30) mmol/L BUN 15 16 (9-20) mg/dL Creatinine 1.06 1.00 (0.66-1.25) mg/dL Glucose 129 H 116 H (74-99) mg/dL Calcium 9.6 8.7 (8.4-10.2) mg/dL AST 44 (17-59) U/L ALT 42 (4-49) U/L Alkaline Phosphatase 86 (38-126) U/L Total Protein 6.9 (6.3-8.2) g/dL Albumin 4.3 (3.5-5.0) g/dL Current Medications Generic Name Dose Route Start Last Admin Trade Name Freq PRN Reason Stop Dose Admin Acetaminophen 1,000 mg 01/31/20 18:46 Tylenol Tab PO Q6HR PRN Fever and/ or Mild Pain Hydrocodone Bitart/Acetaminophen 1 each 01/31/20 18:46 02/01/20 06:56 Harlan 5-325 PO 1 each Q6HR PRN Administration Pain Albuterol/Ipratropium 3 ml 01/31/20 18:46 02/01/20 08:08 Duoneb 0.5 Mg-3 Mg/3 Ml Soln INHALATION 3 ml RT-QID PRN Administration Shortness Of Breath Alprazolam 0.25 mg 01/31/20 18:46 Xanax PO TID PRN Anxiety Aspirin 325 mg 02/01/20 09:00 02/01/20 08:53 Aspirin PO 325 mg DAILY FERNIE Administration Atorvastatin Calcium 40 mg 02/01/20 09:00 02/01/20 08:53 Lipitor PO 40 mg DAILY FERNIE Administration Budesonide/Formoterol Fumarate 2 puff 01/31/20 20:00 02/01/20 08:08 Symbicort 160-4.5 Mcg Inhaler INHALATION 2 puff RT-BID FERNIE Administration Clopidogrel Bisulfate 75 mg 02/01/20 09:00 02/01/20 08:53 Plavix PO 75 mg DAILY FERNIE Administration Heparin Sodium (Porcine) 0 unit 01/31/20 15:55 Heparin IV Q6HR PRN Low PTT Protocol Diltiazem HCl 125 mg/ Sodium 125 mls @ 5 mls/hr 01/31/20 14:15 01/31/20 14:17 Chloride IV 5 mg/hr .Q24H FERNIE 5 mls/hr Administration 5 MG/HR Sodium Chloride 1,000 mls @ 20 mls/hr 01/31/20 16:00 02/01/20 05:42 Saline 0.9% IV Not Given .Q24H FERNIE Heparin Sodium/Sodium Chloride 250 mls @ 8.927 mls/hr 01/31/20 16:00 01/31/20 18:01 25,000 unit/ Sodium Chloride IV 12 units/kg/hr .Q24H FERNIE 8.927 mls/hr Administration Protocol 12 UNITS/KG/HR Metoprolol Tartrate 25 mg 01/31/20 21:00 02/01/20 08:53 Lopressor PO 25 mg BID [facility] Administration Nicotine 1 patch 01/31/20 19:00 02/01/20 08:42 Habitrol 14mg/24hr Patch TRANSDERM Not Given DAILY [facility] Nitroglycerin 0.4 mg 01/31/20 15:55 Nitrostat SUBLINGUAL Q5M PRN Chest Pain Pantoprazole Sodium 40 mg 02/01/20 07:30 02/01/20 06:33 Protonix PO 40 mg AC-BRKFST [facility] Administration Temazepam 15 mg 01/31/20 18:46 Restoril PO HS PRN Insomnia Intake and Output 01/31/20 02/01/20 02/01/20 22:59 06:59 14:59 Intake Total 240 Balance 240 Intake: Oral 240 Other: # Voids 1 1 2 Weight 74.389 kg 90 kg 90 kg Patient Weight 02/02/20 06:59 Weight 90 kg 02/01/20 06:53 02/01/20 06:53
[2020-02-01] MEDS: DILTIAZEM 125 MG in SODIUM CHLORIDE 0.9% 100 ML IV SCH (16:50)
[2020-02-01] MEDS: APIXABAN 5 MG TAB PO SCH ×2 (17:09→20:14)
[2020-02-01] MEDS: METOPROLOL TARTRATE 50 MG TAB PO SCH (20:14)
[2020-02-02] MEDS: PANTOPRAZOLE 40 MG TABLET PO SCH (06:26)
[2020-02-02] MEDS: HYDROcodone/APAP 5-325MG 1 EACH TAB PO PRN ×3 (06:26→17:28)
[2020-02-02 06:45] LABS: Basophils # (A) 0.1 k/uL (0-0.2); Basophils % (A) 1 %; Eosinophils # (A) 1.1 k/uL (0-0.7); Eosinophils % (A) 10 %; HCT 36.4 % (39.0-53.0); HGB 11.4 gm/dL (13.0-17.5); Hypochromasia Slight; Lymphocytes # (A) 2.2 k/uL (1.0-4.8); Lymphocytes % (A) 19 %; MCH 28.5 pg (25.0-35.0); MCHC 31.4 g/dL (31.0-37.0); MCV 90.8 fL (80.0-100.0); Mean Platelet Volume 8.3; Monocytes # (A) 0.7 k/uL (0-1.0); Monocytes % (A) 7 %; Neutrophils # (A) 6.9 k/uL (1.3-7.7); Neutrophils % (A) 62 %; Platelet Count 197 k/uL (150-450); RBC 4.01 m/uL (4.30-5.90); RDW 14.5 % (11.5-15.5); WBC 11.2 k/uL (3.8-10.6)
[2020-02-02 07:14] LABS: African American GFR (CKD) >90 (>60 ml/min/1.73 sqM); Anion Gap 6 mmol/L; Blood Urea Nitrogen 16 mg/dL (9-20); Carbon Dioxide 27 mmol/L (22-30); Chloride 103 mmol/L (98-107); Glucose 124 mg/dL (74-99); Non-African American GFR(CKD) >90 (>60 ml/min/1.73 sqM); Potassium 4.5 mmol/L (3.5-5.1); Sodium 136 mmol/L (137-145)
[2020-02-02] MEDS: SYMBICORT 160-4.5 MCG INHALER INHALATION SCH ×2 (07:55→20:21)
[2020-02-02] MEDS: IPRATROPIUM-ALBUTEROL 3 ML NEB INHALATION PRN (07:55)
[2020-02-02] MEDS: CLOPIDOGREL 75 MG TAB PO SCH (08:44)
[2020-02-02] MEDS: ATORVASTATIN 40 MG TAB PO SCH (08:44)
[2020-02-02] MEDS: NICOTINE 14MG/24HR PATCH TRANSDERM SCH ×2 (08:44→08:48)
[2020-02-02] MEDS: DILTIAZEM 125 MG in SODIUM CHLORIDE 0.9% 100 ML IV SCH (08:44)
[2020-02-02] MEDS: APIXABAN 5 MG TAB PO SCH ×2 (08:44→20:22)
[2020-02-02] MEDS: METOPROLOL TARTRATE 50 MG TAB PO SCH ×2 (08:44→20:22)
--- NOTE | 2020-02-02 10:24 | P.PN ---
Subjective Progress Note Date: 02/01/20 59-year-old male past medical history significant for peripheral arterial disease, tobacco abuse, hypertension, hypercholesterolemia and coronary artery disease status post CABG. The patient follows with Dr. Bran in the office. He previously was having what he felt was GERD over the preceding year and had workup which showed multivessel disease and he did eventually end up undergoing CABG 1.5 months ago. He denies any further episodes of his GERD which is likely his anginal equivalent however has noticed at times decreased exercise tolerance since his bypass. He was following up in the office and was noted to have a rapid heart rate with atrial flutter and RVR. He was therefore transferred to the hospital. He has been on his aspirin and Plavix since the bypass. Patient was placed on a Cardizem drip and is currently at 5 mg with improved heart rate to the 70s. Patient remains on IV Cardizem infusion and heparin has been transitioned to oral Eliquis Objective - Vital Signs Vital signs: Vital Signs Temp 98.7 F 02/01/20 03:13 Pulse 89 02/01/20 08:20 Resp 18 02/01/20 03:13 BP 124/77 02/01/20 03:13 Pulse Ox 100 02/01/20 03:13 Intake & Output 01/31/20 02/01/20 02/01/20 18:59 06:59 18:59 Intake Total 240 Balance 240 Weight 74.389 kg 90 kg Intake: Oral 240 Other: # Voids 1 1 - Exam Blood pressure 120/76 heart rate 101 afebrile and maintaining oxygen saturation on room air. CONSTITUTIONAL: No apparent distress, obese HEENT: Head is normocephalic. Pupils are equal, round. Sclerae anicteric. Mucous membranes of the mouth are moist. No JVD. No carotid bruit. CHEST EXAMINATION: Lungs are clear to auscultation. Mild crackles at bases. HEART EXAMINATION: Regular rate and rhythm. S1, S2 heard. No murmurs, gallops or rub. ABDOMEN: Soft, nontender. Positive bowel sounds. EXTREMITIES: 2+ peripheral pulses, no lower extremity edema and no calf tenderness. - Labs CBC & Chem 7: 02/02/20 05:53 02/02/20 05:53 Labs: Abnormal Lab Results - Last 24 Hours (Table) 01/31/20 01/31/20 01/31/20 Range/Units 14:08 14:08 14:08 WBC (3.8-10.6) k/uL RBC (4.30-5.90) m/uL Hgb 12.8 L (13.0-17.5) gm/dL Hct (39.0-53.0) % MCHC (31.0-37.0) g/dL Eosinophils # (0-0.7) k/uL APTT (22.0-30.0) sec Sodium (137-145) mmol/L Glucose 129 H (74-99) mg/dL Creatine Kinase 51 L (55-170) U/L CK-MB (CK-2) 2.5 H (0.0-2.4) ng/mL 02/01/20 02/01/20 02/01/20 Range/Units 00:18 06:53 06:53 WBC 11.0 H (3.8-10.6) k/uL RBC 4.14 L (4.30-5.90) m/uL Hgb 11.8 L (13.0-17.5) gm/dL Hct 38.3 L (39.0-53.0) % MCHC 30.7 L (31.0-37.0) g/dL Eosinophils # 1.1 H (0-0.7) k/uL APTT 47.5 H (22.0-30.0) sec Sodium 136 L (137-145) mmol/L Glucose 116 H (74-99) mg/dL Creatine Kinase (55-170) U/L CK-MB (CK-2) (0.0-2.4) ng/mL Assessment and Plan Assessment: 1. New onset atrial flutter - Cardiology is following and patient remains on IV Cardizem which is a rate of 5; cardiology recommending to increase Lopressor from 75 mg twice a day up to 100 mg twice a day and attempt to wean Cardizem drip; patient has received 1 dose of IV Lasix for possible volume overload for diastolic CHF; Discussed anticoagulation and patient is agreeable. We will try Eliquis 5 mg twice a day. Patient may benefit from a atrial flutter ablation however this can be arranged as an outpatient. Ideally hope to control his heart rate and optimize his fluid status in hospital. 2. Stable coronary artery disease, status post CABG 1.5 months ago. She remains stable on aspirin, Plavix, statins and beta blockers 3. Acute diastolic heart failure with proBNP elevated at 2900 and mild crackles on exam. Likely exacerbated by atrial flutter with RVR. Patient did receive Lasix IV 1; cardiology recommending to monitor 4. Hypertension; stable on home dose of metoprolol which has been increased to 100 mg twice a day 6. Hypercholesterolemia; Lipitor 40 mg daily 7. Peripheral arterial disease; remains on aspirin and Plavix DVT prophylaxis; systemic anticoagulation CODE STATUS; full code
--- NOTE | 2020-02-02 17:30 | P.PN ---
Subjective Progress Note Date: 02/02/20 Principal diagnosis: New-onset atrial flutter Acute exacerbation CHF 59-year-old male past medical history significant for peripheral arterial disease, tobacco abuse, hypertension, hypercholesterolemia and coronary artery disease status post CABG. The patient follows with Dr. Bran in the office. He previously was having what he felt was GERD over the preceding year and had w orkup which showed multivessel disease and he did eventually end up undergoing CABG 1.5 months ago. He denies any further episodes of his GERD which is likely his anginal equivalent however has noticed at times decreased exercise tolerance since his bypass. He was following up in the office and was noted to have a rapid heart rate with atrial flutter and RVR. He was therefore transferred to the hospital. He has been on his aspirin and Plavix since the bypass. Patient was placed on a Cardizem drip and is currently at 5 mg with improved heart rate to the 70s. Patient remains on IV Cardizem infusion and heparin has been transitioned to oral Eliquis 02/02/2020; shouldn't is seen and evaluated in room at bedside; vital signs are stable; labs are reviewed and are stable Patient remains on IV Cardizem for rate control; await final recommendations from cardiology service regarding continuation of Cardizem for atrial flutter Cardiology has recommended echocardiogram to evaluate left ventricular function but hasn't been ordered; we will proceed with ordering an echo and await final recommendations from cardiology service Objective - Vital Signs Vital signs: Vital Signs Temp 97.7 F 02/02/20 08:00 Pulse 95 02/02/20 08:07 Resp 18 02/02/20 08:00 BP 123/57 02/02/20 08:00 Pulse Ox 95 02/02/20 08:00 Intake & Output 02/01/20 02/02/20 02/02/20 18:59 06:59 18:59 Intake Total 845 819.5 Balance 845 819.5 Weight 90 kg 88.6 kg Intake: Intake, IV Titration 125 99.5 Amount Diltiazem 125 mg In 125 79.5 Sodium Chloride 0.9% 100 ml @ 5 MG/HR 5 mls/hr IV .Q24H FERNIE Rx#:[id number] Sodium Chloride 0.9% 1, 20 000 ml @ 20 mls/hr IV . Q24H FERNIE Rx#:[id number] Oral 720 720 Other: Voiding Method Toilet # Voids 1 1 - Exam Blood pressure 120/76 heart rate 101 afebrile and maintaining oxygen saturation on room air. CONSTITUTIONAL: No apparent distress, obese HEENT: Head is normocephalic. Pupils are equal, round. Sclerae anicteric. Mucous membranes of the mouth are moist. No JVD. No carotid bruit. CHEST EXAMINATION: Lungs are clear to auscultation. Mild crackles at bases. HEART EXAMINATION: Regular rate and rhythm. S1, S2 heard. No murmurs, gallops or rub. ABDOMEN: Soft, nontender. Positive bowel sounds. EXTREMITIES: 2+ peripheral pulses, no lower extremity edema and no calf tenderness. - Labs CBC & Chem 7: 02/02/20 05:53 02/02/20 05:53 Labs: Abnormal Lab Results - Last 24 Hours (Table) 02/02/20 02/02/20 Range/Units 05:53 05:53 WBC 11.2 H (3.8-10.6) k/uL RBC 4.01 L (4.30-5.90) m/uL Hgb 11.4 L (13.0-17.5) gm/dL Hct 36.4 L (39.0-53.0) % Eosinophils # 1.1 H (0-0.7) k/uL Sodium 136 L (137-145) mmol/L Glucose 124 H (74-99) mg/dL Assessment and Plan Assessment: 1. New onset atrial flutter - Cardiology is following and patient remains on IV Cardizem which is a rate of 5; cardiology recommending to increase Lopressor from 75 mg twice a day up to 100 mg twice a day and attempt to wean Cardizem drip; patient has received 1 dose of IV Lasix for possible volume overload for diastolic CHF; Discussed anticoagulation and patient is agreeable. We will try Eliquis 5 mg twice a day. Patient may benefit from a atrial flutter ablation however this can be arranged as an outpatient. Ideally hope to control his heart rate and optimize his fluid status in hospital. 2. Stable coronary artery disease, status post CABG 1.5 months ago. She remains stable on aspirin, Plavix, statins and beta blockers 3. Acute diastolic heart failure with proBNP elevated at 2900 and mild crackles on exam. Likely exacerbated by atrial flutter with RVR. Patient did receive Lasix IV 1; cardiology recommending to monitor 4. Hypertension; stable on home dose of metoprolol which has been increased to 100 mg twice a day 6. Hypercholesterolemia; Lipitor 40 mg daily 7. Peripheral arterial disease; remains on aspirin and Plavix DVT prophylaxis; systemic anticoagulation CODE STATUS; full code
[2020-02-02] MEDS: FUROSEMIDE 10 MG/ML 4 ML VIAL IV SCH (18:01)
[2020-02-02] MEDS ORDERED: HYDROmorphone 0.5 MG/0.5 ML SYRINGE IVP PRN (18:30)
--- NOTE | 2020-02-02 21:08 | P.PN ---
Subjective Progress Note Date: 02/02/20 Atrial flutter with rapid ventricular rate History of present illness: HISTORY OF PRESENTING ILLNESS This is a pleasant 59-year-old male past medical history significant for periph eral arterial disease, tobacco abuse, hypertension, hypercholesterolemia and coronary artery disease status post CABG. The patient follows with Dr. Bran in the office. He previously was having what he felt was GERD over the preceding year and had workup which showed multivessel disease and he did eventually end up undergoing CABG 1.5 months ago. He denies any further episodes of his GERD which is likely his anginal equivalent however has noticed at times decreased exercise tolerance since his bypass. He was following up in the office and was noted to have a rapid heart rate with atrial flutter and RVR. He was therefore transferred to the hospital. He denies any chest pain however admits to some feeling of fatigue and shortness of breath. He has been on his aspirin and Plavix since the bypass. Patient was placed on a Cardizem drip and is currently at 5 mg with improved heart rate to the 70s. 02/02/2020 Patient seen and examined. Patient denies any chest pain or pressure. He r emains in atrial flutter however heart rates predominantly controlled. Patient was placed on Eliquis and Lopressor 100 mg twice a day was added yesterday. REVIEW OF SYSTEMS At the time of my exam: CONSTITUTIONAL: Denies fever or chills. CARDIOVASCULAR: Denies chest pain, +shortness of breath, no orthopnea, PND or palpitations. RESPIRATORY: Denies cough. GASTROINTESTINAL: Denies abdominal pain, diarrhea, constipation, nausea or vomiting. MUSCULOSKELETAL: Denies myalgias. NEUROLOGIC: Denies numbness, tingling or weakness. ENDOCRINE: +fatigue, weight change, polydipsia or polyurina. GENITOURINARY: Denies burning, hematuria or urgency with micturation. HEMATOLOGIC: Denies history of anemia or bleeding. PHYSICAL EXAMINATION Vital signs were reviewed CONSTITUTIONAL: No apparent distress, obese HEENT: Head is normocephalic. Pupils are equal, round. Sclerae anicteric. Mucous membranes of the mouth are moist. No JVD. No carotid bruit. CHEST EXAMINATION: Lungs are clear to auscultation. Mild crackles at bases. HEART EXAMINATION: Regular rate and rhythm. S1, S2 heard. No murmurs, gallops or rub. ABDOMEN: Soft, nontender. Positive bowel sounds. EXTREMITIES: 2+ peripheral pulses, no lower extremity edema and no calf tenderness. NEUROLOGIC EXAMINATION: Patient is awake, alert and oriented x3. ASSESSMENT 1. New onset atrial flutter 2. Stable coronary artery disease, status post CABG 1.5 months ago. No angina and normal troponins 3. Recent worsening dyspnea since his surgery, suspect component of acute diastolic heart failure with proBNP elevated at 2900 and mild crackles on exam. Likely exacerbated by atrial flutter with RVR. 4. Tobacco abuse 5. Hypertension 6. Hypercholesterolemia 7. Peripheral arterial disease PLAN Discussed with nursing to stop the Cardizem drip. Continue with Lopressor 100 mg twice a day. Patient states he had a 2-D echo performed in the office 2 days ago and we will obtain those records. He still has some shortness breath and we will give 1 more dose of Lasix IV and monitor response. Hopeful discharge tomorrow if patient's heart rate continues to be stable and continues improved. Objective - Vital Signs Vital signs: Vital Signs Temp 97.6 F 02/02/20 19:35 Pulse 91 02/02/20 19:35 Resp 18 02/02/20 19:35 BP 139/74 02/02/20 19:35 Pulse Ox 97 02/02/20 19:35 Intake & Output 02/02/20 02/02/20 02/03/20 06:59 18:59 06:59 Intake Total 2039.5 Balance 2039.5 Weight 88.6 kg Intake: IV 140 0.9 140 Intake, IV Titration 99.5 Amount Diltiazem 125 mg In 79.5 Sodium Chloride 0.9% 100 ml @ 5 MG/HR 5 mls/hr IV .Q24H FERNIE Rx#:[id number] Sodium Chloride 0.9% 1, 20 000 ml @ 20 mls/hr IV . Q24H FERNIE Rx#:[id number] Oral 1800 Other: Voiding Method Toilet Toilet # Voids 3 - Labs CBC & Chem 7: 02/02/20 05:53 02/02/20 05:53 Labs: Abnormal Lab Results - Last 24 Hours (Table) 02/02/20 02/02/20 Range/Units 05:53 05:53 WBC 11.2 H (3.8-10.6) k/uL RBC 4.01 L (4.30-5.90) m/uL Hgb 11.4 L (13.0-17.5) gm/dL Hct 36.4 L (39.0-53.0) % Eosinophils # 1.1 H (0-0.7) k/uL Sodium 136 L (137-145) mmol/L Glucose 124 H (74-99) mg/dL
[2020-02-03] MEDS: PANTOPRAZOLE 40 MG TABLET PO SCH (04:44)
[2020-02-03] MEDS: HYDROcodone/APAP 5-325MG 1 EACH TAB PO PRN ×3 (04:44→18:20)
[2020-02-03] MEDS: METOPROLOL TARTRATE 50 MG TAB PO SCH ×2 (04:44→21:40)
[2020-02-03 06:16] LABS: Basophils # (A) 0.1 k/uL (0-0.2); Basophils % (A) 1 %; Eosinophils # (A) 1.1 k/uL (0-0.7); Eosinophils % (A) 11 %; HCT 39.1 % (39.0-53.0); HGB 12.5 gm/dL (13.0-17.5); Hypochromasia Slight; Lymphocytes # (A) 2.6 k/uL (1.0-4.8); Lymphocytes % (A) 26 %; MCH 28.7 pg (25.0-35.0); MCV 89.6 fL (80.0-100.0); Mean Platelet Volume 7.7; Monocytes # (A) 0.8 k/uL (0-1.0); Monocytes % (A) 8 %; Neutrophils # (A) 5.3 k/uL (1.3-7.7); Neutrophils % (A) 52 %; Platelet Count 219 k/uL (150-450); RBC 4.37 m/uL (4.30-5.90); RDW 14.3 % (11.5-15.5); WBC 10.1 k/uL (3.8-10.6)
[2020-02-03 06:52] LABS: African American GFR (CKD) >90 (>60 ml/min/1.73 sqM); Anion Gap 7 mmol/L; Blood Urea Nitrogen 18 mg/dL (9-20); Calcium 9.1 mg/dL (8.4-10.2); Carbon Dioxide 28 mmol/L (22-30); Chloride 101 mmol/L (98-107); Glucose 99 mg/dL (74-99); Non-African American GFR(CKD) 86 (>60 ml/min/1.73 sqM); Potassium 4.2 mmol/L (3.5-5.1); Sodium 136 mmol/L (137-145)
[2020-02-03] MEDS: SYMBICORT 160-4.5 MCG INHALER INHALATION SCH ×2 (08:09→20:59)
[2020-02-03] MEDS: NICOTINE 14MG/24HR PATCH TRANSDERM SCH (08:24)
[2020-02-03] MEDS: FUROSEMIDE 10 MG/ML 4 ML VIAL IV SCH (08:28)
[2020-02-03] MEDS: CLOPIDOGREL 75 MG TAB PO SCH (08:28)
[2020-02-03] MEDS: APIXABAN 5 MG TAB PO SCH ×2 (08:28→21:40)
[2020-02-03] MEDS: ATORVASTATIN 40 MG TAB PO SCH (08:28)
--- NOTE | 2020-02-03 11:26 | P.PN ---
<Alena Harrington A - Last Filed: 02/03/20 13:52> Subjective Progress Note Date: 02/03/20 History of present illness: HISTORY OF PRESENTING ILLNESS This is a pleasant 59-year-old male past medical history significant for peripheral arterial disease, tobacco abuse, hypertension, hypercholesterolemia and coronary artery disease status post CABG. The patient follows with Dr. Bran in the office. He previously was having what he felt was GERD over the preceding year and had workup which showed multivessel disease and he did eventually end up undergoing CABG 1.5 months ago. He denies any further episodes of his GERD which is likely his anginal equivalent however has noticed at times decreased exercise tolerance since his bypass. He was following up in the office and was noted to have a rapid heart rate with atrial flutter and RVR. He was therefore transferred to the hospital. He denies any chest pain however admits to some feeling of fatigue and shortness of breath. He has been on his aspirin and Plavix since the bypass. Patient was placed on a Cardizem drip and is currently at 5 mg with improved heart rate to the 70s. 02/02/2020 Patient seen and examined. Patient denies any chest pain or pressure. He remains in atrial flutter however heart rates predominantly controlled. Patient was placed on Eliquis and Lopressor 100 mg twice a day was added yesterday. 02/02: Patient remains in atrial flutter he has had episodes of 240 bpm currently running at 122 to the low 100s. He states that when he walks he can feel a thumping of his heart at the low sternal area. He states he sometimes develops a pain in the back of his head the left occipital region that extends down. He does not call it a true lightheadedness or dizziness. Patient has been off the Cardizem drip for greater than 24 hours and currently on Lopressor 100 mg twice daily and eliquis. Blood pressure is 131/83 and pulse ox 96% on room air. He denies having any shortness of breath. Reviewed echocardiogram done in the office prior to admission which revealed EF of 35%, mild mitral regurgitation, global hypokinesia. PHYSICAL EXAMINATION Vital signs were reviewed CONSTITUTIONAL: No apparent distress, obese HEENT: Head is normocephalic. Pupils are equal, round. Sclerae anicteric. Mucous membranes of the mouth are moist. No JVD. No carotid bruit. CHEST EXAMINATION: Lungs are clear to auscultation. Mild crackles at bases. HEART EXAMINATION: Regular rate and rhythm. S1, S2 heard. No murmurs, gallops or rub. ABDOMEN: Soft, nontender. Positive bowel sounds. EXTREMITIES: 2+ peripheral pulses, no lower extremity edema and no calf tenderness. NEUROLOGIC EXAMINATION: Patient is awake, alert and oriented x3. ASSESSMENT 1. New onset atrial flutter 2. Stable coronary artery disease, status post CABG 1.5 months ago. No angina and normal troponins 3. Recent worsening dyspnea since his surgery, suspect component of acute diastolic heart failure with proBNP elevated at 2900 and mild crackles on exam. Likely exacerbated by atrial flutter with RVR. 4. Tobacco abuse 5. Hypertension 6. Hypercholesterolemia 7. Peripheral arterial disease PLAN Continue Lopressor 100 mg twice a day. Patient will follow-up with Dr. Bran in the outpatient setting. Nurse practitioner note has been reviewed, I agree with documented findings and plan of care. Patient was seen and examined. Objective - Vital Signs Vital signs: Vital Signs Temp 97.6 F 02/03/20 08:00 Pulse 117 H 02/03/20 08:00 Resp 19 02/03/20 08:00 BP 131/83 02/03/20 08:00 Pulse Ox 96 02/03/20 08:00 Intake & Output 02/02/20 02/03/20 02/03/20 18:59 06:59 18:59 Intake Total 2039.5 240 Output Total 3000 1000 Balance 2039.5 -3000 -760 Weight 87.6 kg Intake: IV 140 0.9 140 Intake, IV Titration 99.5 Amount Diltiazem 125 mg In 79.5 Sodium Chloride 0.9% 100 ml @ 5 MG/HR 5 mls/hr IV .Q24H FERNIE Rx#:[id number] Sodium Chloride 0.9% 1, 20 000 ml @ 20 mls/hr IV . Q24H FERNIE Rx#:[id number] Oral 1800 240 Output: Urine 3000 1000 Other: Voiding Method Toilet Toilet Toilet # Voids 3 5 3 - Labs CBC & Chem 7: 02/03/20 05:57 02/03/20 05:57 Labs: Abnormal Lab Results - Last 24 Hours (Table) 02/03/20 02/03/20 Range/Units 05:57 05:57 Hgb 12.5 L (13.0-17.5) gm/dL Eosinophils # 1.1 H (0-0.7) k/uL Sodium 136 L (137-145) mmol/L <Baljit Patel - Last Filed: 02/03/20 15:53> Subjective Patient seen and examined with at bedside. Patient still remains tachycard ic in the 110s and 120s. He believes this may be in part secondary to frustration with financial issues with trying to get medical disability or go back to work. He however has had issues with his shortness of breath since his surgery. We discussed findings of worsened ejection fraction 35% from echo in the office last week which may be tachycardic-induced or secondary to failure of some of his grafts. We have been attempting to rate control patient with Lopressor without much success. We discussed potentially performing a KERI to ensure no left atrial appendage thrombus and then performing cardioversion. Patient did have his left atrial appendage clipped during CABG however still be thrombus formation and would still recommend KERI to further assess. Continue with Lopressor 100 mg twice a day and add losartan 100 mg daily for heart failure regimen. Patient appears near euvolemic. Hopeful KERI and cardioversion tomorrow with hopeful discharge soon after that if remains stable. Baljit Patel D.O. Objective - Vital Signs Vital signs: Vital Signs Temp 97.6 F 02/03/20 08:00 Pulse 117 H 02/03/20 08:00 Resp 19 02/03/20 08:00 BP 131/83 02/03/20 08:00 Pulse Ox 96 02/03/20 08:00 Intake & Output 02/02/20 02/03/20 02/03/20 18:59 06:59 18:59 Intake Total 2039.5 600 Output Total 3000 1000 Balance 2039.5 -3000 -400 Weight 87.6 kg Intake: IV 140 0.9 140 Intake, IV Titration 99.5 Amount Diltiazem 125 mg In 79.5 Sodium Chloride 0.9% 100 ml @ 5 MG/HR 5 mls/hr IV .Q24H FERNIE Rx#:[id number] Sodium Chloride 0.9% 1, 20 000 ml @ 20 mls/hr IV . Q24H FERNIE Rx#:[id number] Oral 1800 600 Output: Urine 3000 1000 Other: Voiding Method Toilet Toilet Toilet # Voids 3 5 4 - Labs CBC & Chem 7: 02/03/20 05:57 02/03/20 05:57 Labs: Abnormal Lab Results - Last 24 Hours (Table) 02/03/20 02/03/20 Range/Units 05:57 05:57 Hgb 12.5 L (13.0-17.5) gm/dL Eosinophils # 1.1 H (0-0.7) k/uL Sodium 136 L (137-145) mmol/L
--- NOTE | 2020-02-03 16:34 | P.PN ---
Subjective Progress Note Date: 02/03/20 Principal diagnosis: New-onset atrial flutter Acute exacerbation CHF 59-year-old male past medical history significant for peripheral arterial disease, tobacco abuse, hypertension, hypercholesterolemia and coronary artery disease status post CABG. The patient follows with Dr. Bran in the office. He previously was having what he felt was GERD over the preceding year and had w orkup which showed multivessel disease and he did eventually end up undergoing CABG 1.5 months ago. He denies any further episodes of his GERD which is likely his anginal equivalent however has noticed at times decreased exercise tolerance since his bypass. He was following up in the office and was noted to have a rapid heart rate with atrial flutter and RVR. He was therefore transferred to the hospital. He has been on his aspirin and Plavix since the bypass. Patient was placed on a Cardizem drip and is currently at 5 mg with improved heart rate to the 70s. Patient remains on IV Cardizem infusion and heparin has been transitioned to oral Eliquis 02/02/2020; shouldn't is seen and evaluated in room at bedside; vital signs are stable; labs are reviewed and are stable Patient remains on IV Cardizem for rate control; await final recommendations from cardiology service regarding continuation of Cardizem for atrial flutter Cardiology has recommended echocardiogram to evaluate left ventricular function but hasn't been ordered; we will proceed with ordering an echo and await final recommendations from cardiology service 02/03/2020 Patient is seen and evaluated in room with family members at bedside Review of vital signs reveal tachycardia with heart rates ranging between 1 teens to 120s; patient continues to complain of shortness of breath with minimal exertion; medications have been adjusted with Lopressor 100 mg twice a day; patient remains in rapid atrial flutter; cardiology is following and planning to schedule cardioversion tomorrow; anticoagulation has been switched to oral Eliquis 5 mg twice a day Objective - Vital Signs Vital signs: Vital Signs Temp 97.6 F 02/03/20 08:00 Pulse 117 H 02/03/20 08:00 Resp 19 02/03/20 08:00 BP 131/83 02/03/20 08:00 Pulse Ox 96 02/03/20 08:00 Intake & Output 02/02/20 02/03/20 02/03/20 18:59 06:59 18:59 Intake Total 2039.5 240 Output Total 3000 1000 Balance 2038.5 -3000 -760 Weight 87.6 kg Intake: IV 140 0.9 140 Intake, IV Titration 99.5 Amount Diltiazem 125 mg In 79.5 Sodium Chloride 0.9% 100 ml @ 5 MG/HR 5 mls/hr IV .Q24H FERNIE Rx#:[id number] Sodium Chloride 0.9% 1, 20 000 ml @ 20 mls/hr IV . Q24H FERNIE Rx#:[id number] Oral 1800 240 Output: Urine 3000 1000 Other: Voiding Method Toilet Toilet Toilet # Voids 3 5 3 - Exam Blood pressure 120/76 heart rate 101 afebrile and maintaining oxygen saturation on room air. CONSTITUTIONAL: No apparent distress, obese HEENT: Head is normocephalic. Pupils are equal, round. Sclerae anicteric. Mucous membranes of the mouth are moist. No JVD. No carotid bruit. CHEST EXAMINATION: Lungs are clear to auscultation. Mild crackles at bases. HEART EXAMINATION: Regular rate and rhythm. S1, S2 heard. No murmurs, gallops or rub. ABDOMEN: Soft, nontender. Positive bowel sounds. EXTREMITIES: 2+ peripheral pulses, no lower extremity edema and no calf tenderness. - Labs CBC & Chem 7: 02/03/20 05:57 02/03/20 05:57 Labs: Abnormal Lab Results - Last 24 Hours (Table) 02/03/20 02/03/20 Range/Units 05:57 05:57 Hgb 12.5 L (13.0-17.5) gm/dL Eosinophils # 1.1 H (0-0.7) k/uL Sodium 136 L (137-145) mmol/L Assessment and Plan Assessment: 1. New onset atrial flutter - Cardiology is following and patient remains on IV Cardizem which is a rate of 5; cardiology recommending to increase Lopressor from 75 mg twice a day up to 100 mg twice a day and attempt to wean Cardizem drip; patient has received 1 dose of IV Lasix for possible volume overload for diastolic CHF; Discussed anticoagulation and patient is agreeable. We will try Eliquis 5 mg twice a day. Patient may benefit from a atrial flutter ablation however this can be arranged as an outpatient. Ideally hope to control his heart rate and optimize his fluid status in hospital. 2. Stable coronary artery disease, status post CABG 1.5 months ago. She remains stable on aspirin, Plavix, statins and beta blockers 3. Acute diastolic heart failure with proBNP elevated at 2900 and mild crackles on exam. Likely exacerbated by atrial flutter with RVR. Patient did receive Lasix IV 1; cardiology recommending to monitor 4. Hypertension; stable on home dose of metoprolol which has been increased to 100 mg twice a day 6. Hypercholesterolemia; Lipitor 40 mg daily 7. Peripheral arterial disease; remains on aspirin and Plavix DVT prophylaxis; systemic anticoagulation CODE STATUS; full code
[2020-02-04] MEDS: HYDROcodone/APAP 5-325MG 1 EACH TAB PO PRN ×2 (00:02→10:07)
[2020-02-04 06:53] LABS: Basophils # (A) 0.1 k/uL (0-0.2); Basophils % (A) 1 %; Eosinophils # (A) 1.1 k/uL (0-0.7); Eosinophils % (A) 11 %; HCT 40.3 % (39.0-53.0); HGB 12.4 gm/dL (13.0-17.5); Lymphocytes # (A) 2.7 k/uL (1.0-4.8); Lymphocytes % (A) 25 %; MCH 27.6 pg (25.0-35.0); MCHC 30.7 g/dL (31.0-37.0); MCV 89.9 fL (80.0-100.0); Mean Platelet Volume 7.7; Monocytes # (A) 0.7 k/uL (0-1.0); Monocytes % (A) 7 %; Neutrophils # (A) 5.7 k/uL (1.3-7.7); Neutrophils % (A) 54 %; Platelet Count 247 k/uL (150-450); RBC 4.48 m/uL (4.30-5.90); RDW 14.5 % (11.5-15.5); WBC 10.5 k/uL (3.8-10.6)
[2020-02-04 07:12] LABS: African American GFR (CKD) >90 (>60 ml/min/1.73 sqM); Anion Gap 9 mmol/L; Blood Urea Nitrogen 22 mg/dL (9-20); Calcium 9.4 mg/dL (8.4-10.2); Carbon Dioxide 26 mmol/L (22-30); Chloride 101 mmol/L (98-107); Glucose 106 mg/dL (74-99); Non-African American GFR(CKD) 85 (>60 ml/min/1.73 sqM); Potassium 4.4 mmol/L (3.5-5.1); Sodium 136 mmol/L (137-145)
[2020-02-04] MEDS: BENZOCAINE SPRAY 1 CAN TOPICAL ONE ×2 (07:36→07:40)
[2020-02-04] MEDS: SYMBICORT 160-4.5 MCG INHALER INHALATION SCH (08:36)
[2020-02-04] MEDS ORDERED: PROPOFOL 10 MG/ML 20 ML VIAL IV ONE (08:36)
[2020-02-04] MEDS ORDERED: SODIUM CHLORIDE 0.9% 1,000 ML IV SCH (09:00)
[2020-02-04] MEDS ORDERED: IV FLUID CONTINUATION 1,000 ML IV ONE (09:12)
[2020-02-04] MEDS: METOPROLOL TARTRATE 50 MG TAB PO SCH (09:57)
[2020-02-04] MEDS: APIXABAN 5 MG TAB PO SCH (09:57)
[2020-02-04] MEDS: CLOPIDOGREL 75 MG TAB PO SCH (09:58)
[2020-02-04] MEDS: ATORVASTATIN 40 MG TAB PO SCH (09:58)
[2020-02-04] MEDS: FUROSEMIDE 10 MG/ML 4 ML VIAL IV SCH (09:58)
[2020-02-04] MEDS: NICOTINE 14MG/24HR PATCH TRANSDERM SCH (09:59)
[2020-02-04] MEDS: PANTOPRAZOLE 40 MG TABLET PO SCH (10:07)
[2020-02-04 10:21] VITALS: RESP 18
--- NOTE | 2020-02-04 10:24 | ECHOT ---
TRANSESOPHAGEAL ECHOCARDIOGRAM PROCEDURE: Transesophageal echo. INDICATION: Atrial flutter prior to cardioversion. PROCEDURE NOTE: After obtaining informed consent, transesophageal echocardiogram was performed in the left lateral position using an Omni plane probe. Local and IV sedation were obtained by the copywriter. Patient tolerated the procedure well without any obvious immediate complications. FINDINGS: 1. Left atrial appendage. This has been occluded at the open heart surgery that the patient recently had. We did not see any thrombus. There is no intracardiac thrombus within the left atrium, right atrium, right ventricular or left ventricle. 2. There is biatrial enlargement. 3. Left ventricle is normal size, shows diffuse global hypokinesis with mild LV systolic dysfunction with an ejection fraction of around 40%-45% with atypical septal motion noted. 4. Interatrial septum: There is no evidence of pozd-ch-fmbkz shunt by color-flow Doppler or kdxjr-hn-xcut shunt by agitated saline contrast study. 5. Mitral valve appears anatomically normal. There is mild mitral regurgitation noted. 6. Aortic valve is free of stenosis or regurgitation. 7. There is mild tricuspid regurgitation. 8. Aorta shows mild to moderate atherosclerotic changes. CONCLUSION: 1. No intracardiac thrombus. 2. Mild LV systolic dysfunction. PLAN: Patient will undergo cardioversion. CARDIOVERSION NOTE: INDICATION: Atrial flutter with poorly controlled ventricular rate. PROCEDURE NOTE: After obtaining informed consent and making sure that there is no car intracardiac thrombus with a KERI and after patient has been on anticoagulation, he underwent electrical cardioversion with 200 joules of synchronized DC current. He converted to sinus rhythm following a single shock and remained in sinus rhythm. Plan is to continue with anticoagulation, discharge him home and repeat an outpatient echocardiogram on him. MMODL / IJN: [id number] /
[2020-02-04 12:06] VITALS: BP 120/89; PULSE 95; TEMP 97.9
--- NOTE | 2020-02-04 12:12 | P.PN ---
Subjective Progress Note Date: 02/04/20 CHIEF COMPLAINT: A flutter HISTORY OF PRESENT ILLNESS: Patient examined this morning at the bedside. He denies chest pain. Denies shortness of breath. Denies palpitations. Patient underwent KERI with cardioversion today with Dr. Bran. PHYSICAL EXAM: VITAL SIGNS: Reviewed. GENERAL: Well-developed in no acute distress. NECK: Supple. No JVD or thyromegaly LUNGS: Respirations even and unlabored. Lungs essentially clear to auscultation bilaterally. HEART: Regular rate and rhythm. S1 and S2 heard. EXTREMITIES: Normal range of motion. No clubbing or cyanosis. Peripheral pulses intact. No lower extremity edema ASSESSMENT: 1. New-onset atrial flutter, status post cardioversion now maintaining sinus rhythm 2. History of coronary artery disease, status post CABG 3. Hypertension 4. Hyperlipidemia PLAN: -Patient is status post cardioversion this morning. Patient is to continue on metoprolol and Eliquis. He is stable for discharge from a cardiac standpoint and is to follow up with Dr. Bran outpatient. Nurse practitioner note has been reviewed by physician. Signing provider agrees with the documented findings, assessment, and plan of care. Objective - Vital Signs Vital signs: Vital Signs Temp 97.9 F 02/04/20 12:00 Pulse 95 02/04/20 12:00 Resp 18 02/04/20 12:00 BP 120/89 02/04/20 12:00 Pulse Ox 95 02/04/20 12:00 Intake & Output 02/03/20 02/04/20 02/04/20 18:59 06:59 18:59 Intake Total 1200 100 Output Total 1600 1090 300 Balance -400 -1090 -200 Weight 85.6 kg Intake: IV 100 Oral 1200 0 Output: Urine 1600 1090 300 Other: Voiding Method Toilet Toilet # Voids 5 3 - Labs CBC & Chem 7: 02/04/20 06:19 02/04/20 06:19 Labs: Abnormal Lab Results - Last 24 Hours (Table) 02/04/20 02/04/20 Range/Units 06:19 06:19 Hgb 12.4 L (13.0-17.5) gm/dL MCHC 30.7 L (31.0-37.0) g/dL Eosinophils # 1.1 H (0-0.7) k/uL Sodium 136 L (137-145) mmol/L BUN 22 H (9-20) mg/dL Glucose 106 H (74-99) mg/dL
--- NOTE | 2020-02-04 15:18 | P.DS ---
Providers Date of admission: 01/31/20 15:55 Expected date of discharge: 02/04/20 Attending physician: Chris Justin Consults: 01/31/20 15:55 Consult Physician Urgent Consulting Provider: Jace Kaiser Consult Reason/Comments: afib Do you want consulting provider notified?: Yes Primary care physician: Stated None Hospital Course: Final diagnosis -New onset atrial flutter -Stable coronary artery disease, status post CABG 1.5 months ago -Acute diastolic heart failure with acute on chronic exacerbation, possibility of being exacerbated by atrial flutter with RVR -Hypertension -Hypercholesterolemia -Peripheral arterial disease -DVT prophylaxis -Full code Discharge disposition Patient is being discharged in a stable condition with guarded prognosis to home. Patient will follow-up with Dr. Conti in the outpatient setting upon discharge. Resources provided. Patient will also follow-up with Dr. Yina zamora in the outpatient setting. Total time taken is greater than 35 minutes. History of present illness This is a 59-year-old male who was recently admitted with new onset atrial flutter an acute CHF exacerbation and was being closely monitored. She was seen and evaluated by cardiology and initially placed on a Cardizem drip and converted to normal sinus with heart rates in the 70s. Patient was also started on IV heparin and transitioned oral Eliquis and will continue with Plavix in the outpatient setting. Patient underwent KERI with cardioversion and converted. Patient would like to go home today. Patient was cleared by cardiology and recommending outpatient follow-up in one week. Patient currently does not have a primary care provider and resources were provided. Currently no reports of chest pain, shortness of breath, or palpitations. Patient is afebrile. No reports of nausea or vomiting and patient is tolerating diet. Patient will be discharged home today. On exam vital signs are stable. Temp is 97.9F, pulse is 95, respirations are 18, blood pressure is 120/89, oxygen saturation is 95% on room air. Cardio S1, S2 are muffled. Respiratory system shows diminished breath sounds at the bases with no wheezing or rhonchi noted. Abdomen is soft and nontender. Nervous system shows no focal deficits. Please refer to medication reconciliation sheet for a list of medications. Patient Condition at Discharge: Fair Plan - Discharge Summary Discharge Rx Participant: Yes New Discharge Prescriptions: New Apixaban [Eliquis] 5 mg PO BID 30 Days #60 tab Metoprolol Tartrate [Lopressor] 100 mg PO BID 30 Days #60 tab Nitroglycerin Sl Tabs [Nitrostat] 0.4 mg SUBLINGUAL Q5M PRN #30 tab PRN Reason: Chest Pain Continue Aspirin 325 mg PO DAILY #30 tab Atorvastatin [Lipitor] 40 mg PO DAILY #30 tab Pantoprazole [Protonix] 40 mg PO AC-BRKFST #30 tablet. Acetaminophen Tab [Tylenol] 1,000 mg PO Q6HR PRN tab PRN Reason: Fever And/ Or Pain Clopidogrel [Plavix] 75 mg PO DAILY #30 tab Fluticasone/Salmeterol [Fluticasone-Salmeterol 232-14] 1 puff INHALATION RT- BID Ipratropium-Albuterol Nebulize [Duoneb 0.5 mg-3 mg/3 ml Soln] 3 ml INHALATION RT-QID PRN PRN Reason: Shortness Of Breath Discontinued Metoprolol Tartrate [Lopressor] 75 mg PO BID Discharge Medication List Acetaminophen Tab [Tylenol] 1,000 mg PO Q6HR PRN tab 12/31/19 [Rx] Aspirin 325 mg PO DAILY #30 tab 12/31/19 [Rx] Atorvastatin [Lipitor] 40 mg PO DAILY #30 tab 12/31/19 [Rx] Clopidogrel [Plavix] 75 mg PO DAILY #30 tab 12/31/19 [Rx] Pantoprazole [Protonix] 40 mg PO AC-BRKFST #30 tablet. 12/31/19 [Rx] Fluticasone/Salmeterol [Fluticasone-Salmeterol 232-14] 1 puff INHALATION RT-BID 01/31/20 [History] Ipratropium-Albuterol Nebulize [Duoneb 0.5 mg-3 mg/3 ml Soln] 3 ml INHALATION RT-QID PRN 01/31/20 [History] Apixaban [Eliquis] 5 mg PO BID 30 Days #60 tab 02/04/20 [Rx] Metoprolol Tartrate [Lopressor] 100 mg PO BID 30 Days #60 tab 02/04/20 [Rx] Nitroglycerin Sl Tabs [Nitrostat] 0.4 mg SUBLINGUAL Q5M PRN #30 tab 02/04/20 [Rx] Follow up Appointment(s)/Referral(s): Kyree Pierre MD [STAFF PHYSICIAN] - 02/19/20 1:15 pm Brian Bran MD [STAFF PHYSICIAN] - 02/11/20 11:30 am Patient Instructions/Handouts: A-fib (Atrial Fibrillation) (DC), How to Stop Smoking (DC) Discharge Disposition: HOME SELF-CARE
--- NOTE | 2020-02-07 08:26 | CDI ---
Documentation Clarification Form Date: 02/07/20 From: Gaby Prabhakar Phone: If you have a question about this query, please contact Rossy Salinas, Pulp House Supervisor at [phone] between 8am and 5pm. Admit Date: 01/31/20 Discharge Date:02/04/24 Patient Name: Jone Garcia Visit Number: [id number] ATTENTION: The Clinical Documentation Specialists (CDI) and [facility] Coding Staff appreciate your assistance in clarifying documentation. Please respond to the clarification below the line at the bottom and electronically sign. The CDI & [facility] Coding staff will review the response and follow-up if needed. Please note: Queries are made part of the Legal Health Record. If you have any questions, please contact the author of this message via ITS. Dear Dr. Bran Atrial Flutter is documented throughout the chart.. History/Risk factors: Hypertension, CAD, history of CABG, acute exacerbation of diastolic CHF. Clinical Indicators: Rapid heart rate EKG/telemetry: Reveals atrial flutter with a 2:1 block with a heart rate of 129, poor R-wave progression, nonspecific ST-T wave abnormalities documented in the cardiology consult note Treatment: IV Cardizem 15 mg once, IV Cardizem 125 mg, KERI, Cardioversion Consults: Cardiology documented new onset atrial flutter In your professional opinion, in order to capture the severity of condition; can you please clarify the type of Atrial Flutter if known? Typical/Type I Atypical/Type II Other, please specify Unable to determine Unable to determine MTDD
== END 2020-02-04 14:47 | disposition home or self-care (01) | DRG 308 ==
LOC: EC 13:41 → 3SCARD 15:55
PROVIDERS: ADMIT Hospitalist; ATTEND Hospitalist
PROC: B24BZZ4 Ultrasonography of Heart with Aorta, Transesophageal (ICD-10-PCS; principal; 2020-02-04 13:25)
PROC: 5A2204Z Restoration of Cardiac Rhythm, Single (ICD-10-PCS; principal; 2020-02-04 13:25)
DX: I48.92 Unspecified atrial flutter (principal); I50.33 Acute on chronic diastolic (congestive) heart failure; J98.6 Disorders of diaphragm; I11.0 Hypertensive heart disease with heart failure; I48.91 Unspecified atrial fibrillation; I25.118 Atherosclerotic heart disease of native coronary artery with other forms of angina pectoris; I44.1 Atrioventricular block, second degree; D72.829 Elevated white blood cell count, unspecified; E78.00 Pure hypercholesterolemia, unspecified; E78.5 Hyperlipidemia, unspecified; F17.200 Nicotine dependence, unspecified, uncomplicated; I73.9 Peripheral vascular disease, unspecified; J44.9 Chronic obstructive pulmonary disease, unspecified; G43.909 Migraine, unspecified, not intractable, without status migrainosus; M19.90 Unspecified osteoarthritis, unspecified site; E66.9 Obesity, unspecified; Z68.27 Body mass index [BMI] 27.0-27.9, adult; Z79.02 Long term (current) use of antithrombotics/antiplatelets; Z79.51 Long term (current) use of inhaled steroids; Z79.82 Long term (current) use of aspirin; Z79.899 Other long term (current) drug therapy; Z95.1 Presence of aortocoronary bypass graft; Z98.890 Other specified postprocedural states; Z82.49 Family history of ischemic heart disease and other diseases of the circulatory system
CPT/HCPCS: 36415; 71046; 80048; 80053; 80061; 81003; 82550; 82553; 83735; 83880; 84100; 84443; 84484; 85025; 85610; 85730; 92960; 93005; 93312; 93320; 93325; 94640; 94760; 96365; 96366; 96375; 96376; 99291

== ENCOUNTER → 2020-12-25 | Day surgery (SDC) | payer OTHER ==
[2020-12-24 14:02] VITALS: BMI 30.2
[~2020-12-25] MED LIST changes: +ASPIRIN 325 MG TAB PO PRN; -ASPIRIN 325 MG TAB PO STA; -ATORVASTATIN 80 MG TAB PO STA; -FAMOTIDINE 20 MG/2 ML VIAL IV PRN; +HEPARIN SODIUM,PORCINE 10,000 UNIT in SODIUM CHLORIDE 0.9% 1,000 ML IRRIGATION PRN; +HEPARIN SODIUM,PORCINE 2,500 UNIT in SODIUM CHLORIDE 0.9% 250 ML IRRIGATION PRN; +HYDROcodone/APAP 10-325MG 1 EACH TAB ONE; -HYDROmorphone 0.5 MG/0.5 ML SYRINGE IVP PRN; -LACTATED RINGERS 1,000 ML IV SCH; -NITROGLYCERIN SL TABS 0.4 MG TAB SUBLINGUAL PRN; +ZOLPIDEM 5 MG TAB PO PRN
[2020-12-25 07:45] VITALS: BP 124/88; PULSE 80; RESP 16; TEMP 98.1
[2020-12-25 07:54] LABS: Basophils # (A) 0.1 k/uL (0-0.2); Basophils % (A) 1 %; Eosinophils # (A) 0.5 k/uL (0-0.7); Eosinophils % (A) 5 %; HGB 14.2 gm/dL (13.0-17.5); Lymphocytes # (A) 2.7 k/uL (1.0-4.8); Lymphocytes % (A) 29 %; MCH 30.4 pg (25.0-35.0); MCHC 34.7 g/dL (31.0-37.0); MCV 87.7 fL (80.0-100.0); Mean Platelet Volume 7.8; Monocytes # (A) 0.6 k/uL (0-1.0); Monocytes % (A) 7 %; Neutrophils # (A) 5.2 k/uL (1.3-7.7); Neutrophils % (A) 56 %; Platelet Count 188 k/uL (150-450); RBC 4.68 m/uL (4.30-5.90); RDW 13.4 % (11.5-15.5); WBC 9.3 k/uL (3.8-10.6)
[2020-12-25 08:07] LABS: African American GFR (CKD) >90 (>60 ml/min/1.73 sqM); Anion Gap 7 mmol/L; Blood Urea Nitrogen 14 mg/dL (9-20); Calcium 9.5 mg/dL (8.4-10.2); Carbon Dioxide 28 mmol/L (22-30); Chloride 105 mmol/L (98-107); Glucose 119 mg/dL (74-99); Non-African American GFR(CKD) >90 (>60 ml/min/1.73 sqM); Potassium 4.1 mmol/L (3.5-5.1); Sodium 140 mmol/L (137-145)
== END ==
LOC: CATHCVL 07:14
PROVIDERS: ATTEND Internal Medicine Interventional Cardiology
DX: I73.9 Peripheral vascular disease, unspecified (principal); Z53.9 Procedure and treatment not carried out, unspecified reason
CPT/HCPCS: 80048; 85025

== ENCOUNTER 2021-12-31 22:22 | Emergency (ER) | payer OTHER, MEDICARE ==
[2021-12-31 22:31] VITALS: BP 137/69; PULSE 63; RESP 16; TEMP 98
--- NOTE | 2021-12-31 22:58 | ED ---
Extremity Problem HPI - General Chief complaint: Extremity Problem,Nontraumatic Stated complaint: Leg cramping Time Seen by Provider: 12/31/21 22:32 Source: patient Mode of arrival: ambulatory Limitations: no limitations - History of Present Illness Initial comments: This patient is a 61-year-old man who presents to be evaluated for left leg "cramps" that come on if he walks. Patient states this problem has been going on for a couple of years, he noticed it after he had his bypass. The patient states that he was previously seen by a "blockage specialist" at the other hospital. He states that due to transportation issues he had never followed up on this. He is given medications that do help to relieve the symptoms. He states that he would probably not be able to walk across the entire department here without having pains, with the oxycodone he is given he is able walk to the parking lot. Patient also is taking Trental. comes here for attention today because the symptoms have been more pronounced for the past few days. No pain currently at rest. Patient does smoke he states he has cut down to 3/4 pack per day from well over pack Complaint: extremity pain Onset/Timin -: year(s) Location: left, lower extremity History of Same: Yes Quality: other (Cramping) Consistency: intermittent Improves with: medication, rest Worsens with: walking Associated Symptoms: denies other symptoms - Related Data Home Medications Medication Instructions Recorded Confirmed Albuterol Sulfate [Proair Hfa] 2 puff INHALATION Q6HR PRN 12/24/20 12/25/20 Budesonide/Formoterol Fumarate 2 puff INHALATION DAILY 12/24/20 12/25/20 [Symbicort 160-4.5 Mcg Inhaler] Ergocalciferol [Vitamin D2 (1250 1,250 mcg PO TU 12/24/20 12/25/20 Mcg = 90926 Iu)] oxyCODONE-APAP 10-325MG [Percocet 1 tab PO Q6HR PRN 12/25/20 12/25/20 10-325 mg] Previous Rx's Medication Instructions Recorded Acetaminophen Tab [Tylenol] 1,000 mg PO Q6HR PRN tab 12/31/19 Aspirin 325 mg PO DAILY #30 tab 12/31/19 Atorvastatin [Lipitor] 40 mg PO DAILY #30 tab 12/31/19 Pantoprazole [Protonix] 40 mg PO MARCUS-BRKFST #30 tablet. 12/31/19 Apixaban [Eliquis] 5 mg PO BID 30 Days #60 tab 02/04/20 Metoprolol Tartrate [Lopressor] 100 mg PO BID 30 Days #60 tab 02/04/20 Nitroglycerin Sl Tabs [Nitrostat] 0.4 mg SUBLINGUAL Q5M PRN #30 tab 02/04/20 Allergies Allergy/AdvReac Type Severity Reaction Status Date / Time No Known Allergies Allergy Verified 12/31/21 22:31 Review of Systems ROS Statement: Those systems with pertinent positive or pertinent negative responses have been documented in the HPI. ROS Other: All systems not noted in ROS Statement are negative. Constitutional: Denies: fever, chills, weakness Respiratory: Denies: cough, dyspnea Cardiovascular: Denies: chest pain, palpitations, edema Gastrointestinal: Denies: abdominal pain, vomiting Musculoskeletal: Denies: back pain Skin: Denies: rash Neurological: Denies: headache, weakness, numbness Past Medical History Past Medical History: Coronary Artery Disease (CAD), Hyperlipidemia, Hypertension, Vascular Disorder Additional Past Medical History / Comment(s): hx migrainres, gets SOB, soreness both lower legs, neck pain Last Myocardial Infarction Date:: unkown History of Any Multi-Drug Resistant Organisms: None Reported Past Surgical History: Coronary Bypass/CABG, Heart Catheterization, Orthopedic Surgery Additional Past Surgical History / Comment(s): surgery for fx rt shoulder, heart cath about at [facility], triple bypass Past Anesthesia/Blood Transfusion Reactions: No Reported Reaction Additional Past Anesthesia/Blood Transfusion Reaction / Comment(s): no hx blood transfusion Past Psychological History: Depression Smoking Status: Current every day smoker Past Alcohol Use History: Rare Past Drug Use History: Marijuana - Past Family History Mother History Unknown: Yes Additional Family Medical History / Comment(s): mother had blood clot - not sure where General Exam Limitations: no limitations General appearance: alert, in no apparent distress Head exam: Present: atraumatic, normocephalic Eye exam: Present: normal appearance. Absent: scleral icterus, conjunctival injection Neck exam: Present: normal inspection Respiratory exam: Present: normal lung sounds bilaterally. Absent: respiratory distress, wheezes, rales, rhonchi, stridor Cardiovascular Exam: Present: regular rate, normal rhythm, normal heart sounds. Absent: systolic murmur, diastolic murmur, rubs, gallop GI/Abdominal exam: Present: soft. Absent: distended, tenderness, guarding, rebo und, rigid, mass Course Vital Signs 12/31/21 22:28 Temperature 98 F Pulse Rate 63 Respiratory 16 Rate Blood Pressure 137/69 O2 Sat by Pulse 98 Oximetry Medical Decision Making - Lab Data Result diagrams: 12/31/21 23:18 12/31/21 23:18 Lab Results 12/31/21 12/31/21 12/31/21 Range/Units 23:18 23:18 23:18 WBC 11.9 H (3.8-10.6) k/uL RBC 4.74 (4.30-5.90) m/uL Hgb 14.1 (13.0-17.5) gm/dL Hct 42.6 (39.0-53.0) % MCV 89.9 (80.0-100.0) fL MCH 29.7 (25.0-35.0) pg MCHC 33.1 (31.0-37.0) g/dL RDW 12.9 (11.5-15.5) % Plt Count 202 (150-450) k/uL MPV 8.4 Neutrophils % 56 % Lymphocytes % 29 % Monocytes % 8 % Eosinophils % 5 % Basophils % 1 % Neutrophils # 6.6 (1.3-7.7) k/uL Lymphocytes # 3.4 (1.0-4.8) k/uL Monocytes # 0.9 (0-1.0) k/uL Eosinophils # 0.6 (0-0.7) k/uL Basophils # 0.1 (0-0.2) k/uL Sodium 136 L (137-145) mmol/L Potassium 4.3 (3.5-5.1) mmol/L Chloride 103 (98-107) mmol/L Carbon Dioxide 25 (22-30) mmol/L Anion Gap 8 mmol/L BUN 18 (9-20) mg/dL Creatinine 1.13 (0.66-1.25) mg/dL Est GFR (CKD-EPI)AfAm 81 (>60 ml/min/1.73 sqM) Est GFR (CKD-EPI)NonAf 70 (>60 ml/min/1.73 sqM) Glucose 100 H (74-99) mg/dL Plasma Lactic Acid Natanael 1.3 (0.7-2.0) mmol/L Calcium 9.0 (8.4-10.2) mg/dL Magnesium 1.9 (1.6-2.3) mg/dL Disposition Clinical Impression: Claudication of left lower extremity Disposition: HOME SELF-CARE Condition: Good Instructions (If sedation given, give patient instructions): Peripheral Artery Disease (ED) Is patient prescribed a controlled substance at d/c from ED?: No Referrals: Kyree Pierre MD [Primary Care Provider] - 1-2 days Sadiq Yu DO [STAFF PHYSICIAN] - 1-2 days
[2021-12-31 23:27] LABS: Basophils # (A) 0.1 k/uL (0-0.2); Basophils % (A) 1 %; Eosinophils # (A) 0.6 k/uL (0-0.7); Eosinophils % (A) 5 %; HCT 42.6 % (39.0-53.0); HGB 14.1 gm/dL (13.0-17.5); Lymphocytes # (A) 3.4 k/uL (1.0-4.8); Lymphocytes % (A) 29 %; MCH 29.7 pg (25.0-35.0); MCHC 33.1 g/dL (31.0-37.0); MCV 89.9 fL (80.0-100.0); Mean Platelet Volume 8.4; Monocytes # (A) 0.9 k/uL (0-1.0); Monocytes % (A) 8 %; Neutrophils # (A) 6.6 k/uL (1.3-7.7); Neutrophils % (A) 56 %; Platelet Count 202 k/uL (150-450); RBC 4.74 m/uL (4.30-5.90); RDW 12.9 % (11.5-15.5); WBC 11.9 k/uL (3.8-10.6)
[2021-12-31 23:39] LABS: Magnesium 1.9 mg/dL (1.6-2.3); Potassium 4.3 mmol/L (3.5-5.1)
== END 2022-01-01 01:04 | disposition home or self-care (01) ==
LOC: EC 22:22
DX: I73.9 Peripheral vascular disease, unspecified (principal); I25.10 Atherosclerotic heart disease of native coronary artery without angina pectoris; E78.5 Hyperlipidemia, unspecified; I10 Essential (primary) hypertension; F17.200 Nicotine dependence, unspecified, uncomplicated
CPT/HCPCS: 36415; 80048; 83605; 83735; 85025; 99283

== ENCOUNTER → 2022-03-24 | Outpatient (CLI) | payer MEDICARE ==
--- NOTE | 2022-03-25 14:47 | CTL ---
EXAMINATION TYPE: CT Low Dose Lung DATE OF EXAM ORDERED: 03/24/2022 HISTORY: History of smoking, Lung cancer screening CT DLP: 114.[address] CTDI: 3.40 mGy Automated exposure control for dose reduction was used. SCREENING VISIT: Initial iv therapy nurse lungs cancer screening COMPARISON: Chest radiograph 04/24/2020. TECHNIQUE: Low dose computed tomography scan was performed through the chest at 1 mm thick sections a nd reconstructed images in multiple planes at 1 mm and [address] DIAGNOSTIC QUALITY: Satisfactory FINDINGS: LUNG NODULES: None. LUNGS: COPD: Severity: Mild centrilobular emphysema changes are present. Fibrosis: Severity: None Lymph nodes: Partially calcified lymph node in the right paratracheal region. Other findings: Right fat containing Bochdalek hernia. RIGHT PLEURAL SPACE: Effusion: None Calcification: None Thickening: None Pneumothorax: None LEFT PLEURAL SPACE: Effusion: None Calcification: None Thickening: None Pneumothorax: None HEART: Heart Size: Heart is within normal limits for size. Coronary Calcification: Moderate severe coronary artery atherosclerosis with suspected post CABG walker ges. Pericardial Effusion: None OTHER FINDINGS: Upper abdomen: None Bony thorax: Sternotomy wires are present. 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 Multilevel disc degenera tion changes are seen throughout the spine. Supraclavicular region: None Other: None IMPRESSION: 1. No pulmonary nodules. 2. Mild abdomen emphysema changes. CT LUNG RAD AND CT CHEST RECOMMENDATION: Lung-Rad 1 Negative: Continue annual screening with LDCT in 12 months. S Modifier (other clinically significant findings):
== END | disposition home or self-care (01) ==
LOC: RADCTMAIN 16:06
PROVIDERS: ATTEND Internal Medicine Critical Care Medicine
DX: Z12.2 Encounter for screening for malignant neoplasm of respiratory organs (principal); J43.2 Centrilobular emphysema; Z87.891 Personal history of nicotine dependence
CPT/HCPCS: 71271

== ENCOUNTER → 2024-03-14 | Outpatient (CLI) | payer MEDICARE, OTHER ==
--- NOTE | 2024-03-14 10:01 | US ---
EXAMINATION TYPE: US arterial LE multi level DATE OF EXAM: 03/14/2024 9:10 AM CLINICAL INDICATION: Male, 63 years old with history of I70.213 CLAUDICATION; Z12.2; Bilateral leg pa in. History of: Smoker: Current Hypertension: Yes Diabetic: No Hyperlipidemia: No TIA/CVA: No Previous Vascular Surgery: Vein strip for CABG CAD: Yes Vascular Ulcers: No Claudication: Yes Gangrene: No Doppler Waveforms: Right: Monophasic Left: Monophasic Right Brachial Pressure: 156 Left Brachial Pressure: 112 Bilateral brachial pressure taken x 2 Ankle-Brachial Indices: Right: 0.4 Left: 0.3 (Vessel hardening > 1.4; Normal 0.9 - 1.4, Moderate 0.7 - 0.9, Severe 0.5-0.7) IMPRESSION: Ankle-brachial indices suggestive of severe bilateral peripheral vascular disease. [facility], , 03/14/2024 9:58 AM
--- NOTE | 2024-03-14 13:42 | CTL ---
EXAMINATION TYPE: CT Low Dose Lung DATE OF EXAM: 03/14/2024 10:42 AM CLINICAL INDICATION: Male, 63 years old with history of Z12.2 SCREENING NEOPLASM, F17.210 NICOTINE DE PENDANCE; Personal history of nicotine dependence , history of tobacco use. COMPARISON: 03/24/2022 TECHNIQUE: Multiple axial non-contrast scans were obtained from approximately the lung apices through the upper abdomen. Coronal and sagittal reformatted images were obtained. Low dose technique was uti lized. MIP were created on a separate workstation and submitted for review. CT DLP: 60.00 mGycm, Automated exposure control for dose reduction was used. CT Contrast: Contrast used: None Oral contrast used: None FINDINGS: ======== Lack of intravenous contrast and low dose technique limits the evaluation of the vascular and soft ti ssue structures. LUNGS: No evidence of pulmonary fibrosis. No evidence of focal consolidation, pneumothorax or pleural effusion. Centrilobular emphysema changes. Right posterior Bochdalek fat-containing hernia Nodules: RUL: None. RML: None. RLL: None. SEAN: None. LLL: None. AIRWAY: Patent and unremarkable. HEART: Size within normal limits. Severe coronary artery calcifications. Atrial appendage occlusion d evice. MEDIASTINUM: No gross evidence of adenopathy. Scattered partially calcified lymph nodes. VASCULATURE: No aortic aneurysm. MUSCULOSKELETAL: No acute osseous abnormalities, sternotomy wires are present. SOFT TISSUES/LYMPH NODES: Unremarkable. LOWER NECK: No significant findings. UPPER ABDOMEN: No significant findings. IMPRESSION: 1. No pulmonary nodules. 2. Mild emphysema. 3. Severe coronary artery atherosclerosis. CT LUNG RAD AND CT CHEST RECOMMENDATION: Lung-Rad 2 Benign Appearance or Behavior: Continue annual sc reening with LDCT in 12 months. S Modifier (other clinically significant findings): None Recommend smoking cessation (if current smoker), or continuation of smoking cessation (if prior smoke r). Annual screening for lung cancer with low-dose computed tomography is recommended in adults ages 55 to 77 years who have a 30 pack-year smoking history and currently smoke or have quit within the pa st 15 years. Screening should be discontinued once a person has not smoked for 15 years or develops a health problem that substantially limits life expectancy or the ability or willingness to have curat wilian lung surgery. Lung rads 2021 [email or web address] [facility], , 03/14/2024 1:40 PM
== END | disposition home or self-care (01) ==
LOC: RADUSWWP 08:34
PROVIDERS: ATTEND Family Medicine
DX: Z12.2 Encounter for screening for malignant neoplasm of respiratory organs (principal); I70.213 Atherosclerosis of native arteries of extremities with intermittent claudication, bilateral legs; J43.9 Emphysema, unspecified; I25.10 Atherosclerotic heart disease of native coronary artery without angina pectoris; F17.210 Nicotine dependence, cigarettes, uncomplicated
CPT/HCPCS: 71271; 93923

== ENCOUNTER 2024-11-24 16:52 | Emergency (ER) | payer MEDICARE, OTHER ==
[2024-11-24] MEDS: HYDROcodone/APAP 7.5-325MG 1 EACH TAB PO ONE (17:59)
--- NOTE | 2024-11-24 18:16 | ED ---
General Adult HPI - General Chief complaint: Recheck/Abnormal Lab/Rx Stated complaint: B/L Leg Pain Time Seen by Provider: 11/24/24 17:04 Source: patient, family Mode of arrival: ambulatory - History of Present Illness Initial comments: 64-year-old male presenting with chief complaint of bilateral leg pain. He reports that this is an ongoing issue. Reports that pain will start in his feet and comes up into his back. He denies any injury or trauma. No loss of bowel or bladder control or saddle paresthesia. Pain is worse with walking. Patient takes hydrocodone for his pain, he has been out for the past few days, states that he left them in his car and he thinks someone stole them. Patient reports that he has followed with Dr. Hawthorne in the past, he reports that at his last visit he left before seeing her because he was frustrated with the wait. No fever or chills. No abdominal pain. No chest pain or difficulty breathing. No swelling of the legs. - Related Data Home Medications Medication Instructions Recorded Confirmed Albuterol Sulfate [Proair Hfa] 2 puff INHALATION Q6HR PRN 12/24/20 12/25/20 Budesonide/Formoterol Fumarate 2 puff INHALATION DAILY 12/24/20 12/25/20 [Symbicort 160-4.5 Mcg Inhaler] Ergocalciferol [Vitamin D2 (1250 1,250 mcg PO TU 12/24/20 12/25/20 Mcg = 84348 Iu)] oxyCODONE-APAP 10-325MG [Percocet 1 tab PO Q6HR PRN 12/25/20 12/25/20 10-325 mg] Previous Rx's Medication Instructions Recorded Acetaminophen Tab [Tylenol] 1,000 mg PO Q6HR PRN tab 12/31/19 Aspirin 325 mg PO DAILY #30 tab 12/31/19 Atorvastatin [Lipitor] 40 mg PO DAILY #30 tab 12/31/19 Pantoprazole [Protonix] 40 mg PO AC-BRKFST #30 tablet. 12/31/19 Apixaban [Eliquis] 5 mg PO BID 30 Days #60 tab 02/04/20 Metoprolol Tartrate [Lopressor] 100 mg PO BID 30 Days #60 tab 02/04/20 Nitroglycerin Sl Tabs [Nitrostat] 0.4 mg SUBLINGUAL Q5M PRN #30 tab 02/04/20 HYDROcodone/APAP 7.5-325MG [Rebecca 1 tab PO Q6HR PRN 3 Days #12 tab 11/24/24 7.5-325] Allergies Allergy/AdvReac Type Severity Reaction Status Date / Time No Known Allergies Allergy Verified 11/24/24 17:02 Review of Systems ROS Statement: Those systems with pertinent positive or pertinent negative responses have been documented in the HPI. ROS Other: All systems not noted in ROS Statement are negative. Past Medical History Past Medical History: Coronary Artery Disease (CAD), Hyperlipidemia, Hypertension, Vascular Disorder Additional Past Medical History / Comment(s): hx migrainres, gets SOB, soreness both lower legs, neck pain Last Myocardial Infarction Date:: unkown History of Any Multi-Drug Resistant Organisms: None Reported Past Surgical History: Coronary Bypass/CABG, Heart Catheterization, Orthopedic Surgery Additional Past Surgical History / Comment(s): surgery for fx rt shoulder, heart cath about at [facility], triple bypass Past Anesthesia/Blood Transfusion Reactions: No Reported Reaction Additional Past Anesthesia/Blood Transfusion Reaction / Comment(s): no hx blood transfusion Past Psychological History: Depression Smoking Status: Current every day smoker Past Alcohol Use History: Rare Past Drug Use History: Marijuana - Past Family History Mother History Unknown: Yes Additional Family Medical History / Comment(s): mother had blood clot - not sure where General Exam General appearance: alert, in no apparent distress Head exam: Present: atraumatic, normocephalic, normal inspection Eye exam: Present: normal appearance, EOMI Neck exam: Present: normal inspection. Absent: meningismus Respiratory exam: Absent: respiratory distress Cardiovascular Exam: Present: regular rate Extremities exam: Present: normal inspection, full ROM, normal capillary refill. Absent: pedal edema Neurological exam: Present: alert, oriented X3 Psychiatric exam: Present: normal affect, normal mood Skin exam: Present: warm, dry, normal color Course Vital Signs 11/24/24 11/24/24 16:56 18:50 Temperature 98.3 F 98.4 F Pulse Rate 83 79 Respiratory 18 16 Rate Blood Pressure 111/81 117/72 O2 Sat by Pulse 97 98 Oximetry Medical Decision Making - Medical Decision Making Was pt. sent in by a medical professional or institution (, PA, LICENSED HOME INSPECTOR, urgent care, hospital, or jail...) When possible be specific @ -No Did you speak to anyone other than the patient for history (EMS, parent, family, police, friend...)? What history was obtained from this source @ -No Did you review nursing and triage notes (agree or disagree)? Why? @ -I reviewed and agree with nursing and triage notes Were old charts reviewed (outside hosp., previous admission, EMS record, old EKG, old radiological studies, urgent care reports/EKG's, jail records)? Report findings @ -I reviewed the patient's arterial ultrasound from 03/14/2024 which showed ABIs suggestive of severe bilateral peripheral vascular disease Differential Diagnosis (chest pain, altered mental status, abdominal pain women, abdominal pain men, vaginal bleeding, weakness, fever, dyspnea, syncope, headache, dizziness, GI bleed, back pain, seizure, CVA, palpatations, mental health, musculoskeletal)? @ -Differential Musculoskeletal Muscular strain, contusion, ligament sprain, fracture, arthritis, septic arthritis, bursitis, cellulitis, muscle spasm, nerve compression, DVT, arterial occlusion, herpes zoster, electrolyte abnormality, tumor.... This is not meant to be in all inclusive list EKG interpreted by me (3pts min.). @ -As above X-rays interpreted by me (1pt min.). @ -None done CT interpreted by me (1pt min.). @ -None done U/S interpreted by me (1pt. min.). @ -None done What testing was considered but not performed or refused? (CT, X-rays, U/S, labs)? Why? @ -None What meds were considered but not given or refused? Why? @ -None Did you discuss the management of the patient with other professionals (professionals i.e. , PA, LICENSED HOME INSPECTOR, lab, RT, psych nurse, manager social, stable helper, teacher, safety officer, case managers)? Give summary @ -No Was smoking cessation discussed for >3mins.? @ -No Was critical care preformed (if so, how long)? @ -No Were there social determinants of health that impacted care today? How? (Homelessness, low income, unemployed, alcoholism, drug addiction, transportation, low edu. Level, literacy, decrease access to med. care, fci, rehab)? @ -No Was there de-escalation of care discussed even if they declined (Discuss DNR or withdrawal of care, Hospice)? DNR status @ -No What co-morbidities impacted this encounter? (DM, HTN, Smoking, COPD, CAD, Cancer, CVA, ARF, Chemo, Hep., AIDS, mental health diagnosis, sleep apnea, morbid obesity)? @ -None Was patient admitted / discharged? Hospital course, mention meds given and route, prescriptions, significant lab abnormalities, going to OR and other pertinent info. @ -64-year-old male presenting with chief complaint of bilateral leg pain. This is chronic and the patient has been taking hydrocodone. No new injury or trauma. No red flag symptoms. On examination the pulses are difficult to palpate. However the patient does have good capillary refill, the legs are warm and pink. No evidence of acute ischemic limb on physical exam. Patient has seen vascular surgeon Dr. Hawthorne in the past, he reports that he does not want to see her anymore because he was upset with how long the wait was at the office the last time he was there. I reviewed the patient's vascular ultrasound back from March which showed ABIs suggestive of severe peripheral vascular disease. I suspect that this is the cause of his pain. I will provide the patient with pain medication and we had a lengthy discussion regarding the importance of following up with vascular surgery and the long-term outcomes of unmanaged severe peripheral vascular disease. I provided the patient with pain medication for the weekend and instructed him to call the office first thing on Tuesday. I advised that if he does not want to continue seeing his current vascular surgeon he may see one of the other 2 in town. Patient conveys verbal understanding. Discharged. Follow-up with PCP. Report back to ER with any new or worsening symptoms. Discussed return parameters and answered all questions. Patient conveyed verbal understanding and agreed to the plan. I discussed this case in detail with my attending Dr. Buitrago Undiagnosed new problem with uncertain prognosis? @ -No Drug Therapy requiring intensive monitoring for toxicity (Heparin, Nitro, Insulin, Cardizem)? @ -No Were any procedures done? @ -No Diagnosis/symptom? @ -Leg claudication Acute, or Chronic, or Acute on Chronic? @ -Acute on chronic Uncomplicated (without systemic symptoms) or Complicated (systemic symptoms)? @ -Uncomplicated Side effects of treatment? @ -No Exacerbation, Progression, or Severe Exacerbation? @ -No Poses a threat to life or bodily function? How? (Chest pain, [place], [place], pneumonia, PE, COPD, DKA, ARF, appy, cholecystitis, CVA, Diverticulitis, Homicidal, Suicidal, threat to staff... and all critical care pts) @ -There is potential threat in the long-term, I explained to the patient that if he does not follow-up with vascular surgery this may result in amputation of the legs Disposition Clinical Impression: Claudication in peripheral vascular disease Disposition: HOME SELF-CARE Condition: Fair Instructions (If sedation given, give patient instructions): Peripheral Artery Disease (ED) Additional Instructions: It is very important that you follow-up with the vascular surgeon. Report back to ER with any new or worsening symptoms, including but not limited to bluish discoloration of the leg, coldness of the leg, increasing pain. Prescriptions: HYDROcodone/APAP 7.5-325MG [Rebecca 7.5-325] 1 tab PO Q6HR PRN 3 Days #12 tab PRN Reason: Pain Is patient prescribed a controlled substance at d/c from ED?: Yes When asked, does pt state using other controlled substances?: No If prescribed controlled substance>3 days was MAPS reviewed?: Prescribed <3 Days If opioid is for acute pain is fill amount 7 days or less?: Yes Referrals: Kyree Pierre MD [Primary Care Provider] - 1-2 days Sadiq Yu DO [STAFF PHYSICIAN] - 1-2 days Kevin Salazar DO [Doctor of Osteopathic Medicine] - 1-2 days Time of Disposition: 18:26
[2024-11-24] MEDS: MORPHINE SULFATE 4 MG/ML SYRINGE IM STA (18:29)
[2024-11-24 18:51] VITALS: BP 117/72; PULSE 79; RESP 16; TEMP 98.4
== END 2024-11-24 18:51 | disposition home or self-care (01) ==
LOC: EC 16:52
DX: I73.9 Peripheral vascular disease, unspecified (principal); F17.200 Nicotine dependence, unspecified, uncomplicated
CPT/HCPCS: 99283; 96372; J2270